=== PATIENT | female | born 1950 | race Caucasian/White ===

== ENCOUNTER 2017-01-14 06:27 | Inpatient (IN) | payer OTHER ==
[~2017-01-14] VITALS: Ht 157.5 cm; Wt 93.1 kg
[2017-01-14] VITALS (27 sets, daily range): BP systolic 87–246; BP diastolic 56–123; PULSE 74–110; RESP 14–38; TEMP 98.8–99.7; O2SAT 91–100
[2017-01-14] MEDS ORDERED: ROCURONIUM INJ 50 MG/5 ML VIAL IV ONE (06:45)
[2017-01-14] MEDS ORDERED: ETOMIDATE 20 MG/10 ML VIAL IV PUSH ONE (06:45)
[2017-01-14] MEDS ORDERED: AZITHROMYCIN INJ 500 MG in SODIUM CHLOR 0.9% 250 ML INJ 250 ML IV ONE (06:45)
[2017-01-14] MEDS ORDERED: CEFEPIME INJ 2,000 MG in SODIUM CHLORIDE 0.9% INJ 100 ML IV ONE (06:45)
--- NOTE | 2017-01-14 06:47 | PD ---
HPI Chief Complaint: Respiratory Distress Time Seen by Provider: 06:38 Travel History International Travel<30 days: No Contact w/Intl Traveler<30days: No Traveled to known affect area: No History of Present Illness HPI Approximately [age]-old female brought in by ambulance from home for evaluation of shortness of breath. Patient had been complaining of shortness of breath since yesterday which has been gradually worsening. She has had a cough productive of greenish sputum. 911 was was called by the patient's significant other. EMS noted patient's O2 saturation to be 40-50% on room air and she was in obvious distress with a respiratory rate in the 40s. She was started on CPAP. Upon arrival to the emergency department the patient is very to Neck. She is still on CPAP and is saturating 90%. She denies chest pain. She is unable to provide much more the history given her respiratory status. I explained that I would like to intubate her, and she was amenable to this. She denies history of heart or lung problems. Left forearm 20-gauge IV was established by me under ultrasound guidance. Once IV was established, RSI was performed by me for impending respiratory failure. [facility] Past Medical History Medical History: Unable to Obtain Tetanus Vaccination: Unknown ?: Unknown Past Surgical History Surgical History: Unable to Obtain Social History Alcohol Use: No Tobacco Use: No Substance Use: No Allergies-Medications (Allergen,Severity, Reaction): Coded Allergies: UNOBTAINABLE (Unverified , 01/14/17) Reported Meds & Prescriptions Reported Meds & Active Scripts Active Active Prescriptions or Reported Medications Unobtainable Review of Systems ROS Limitations: Clinical Condition Physical Exam Narrative GENERAL: Well-developed, well-nourished, severe respiratory distress, speaking 1 word at a time, tachypneic SKIN: Warm and dry. No rash. No pallor. HEAD: Atraumatic. Normocephalic. EYES: Pupils equal and round. No scleral icterus. No injection or drainage. ENT: Mucous membranes pink and moist. NECK: Trachea midline. No JVD. CARDIOVASCULAR: Tachycardic, regular. RESPIRATORY: Severe respiratory distress. Accessory muscle use. Speaking 1 word at a time. Coarse breath sounds bilaterally. GASTROINTESTINAL: Abdomen soft, non-tender, nondistended. MUSCULOSKELETAL: No obvious deformities. No clubbing. No cyanosis. No edema. NEUROLOGICAL: Drowsy, severe respiratory distress. Moves all extremities. Data Data Last Documented VS Vital Signs Date Time Temp Pulse Resp B/P Pulse Ox O2 Delivery O2 Flow Rate FiO2 01/14/17 07:09 103 14 188/95 98 Ventilator 100 01/14/17 06:29 99.1 Orders Electrocardiogram (01/14/17 06:39) Complete Blood Count With Diff (01/14/17 06:39) Comprehensive Metabolic Panel (01/14/17 06:39) Prothrombin Time / Inr (Pt) (01/14/17 06:39) Act Partial Throm Time (Ptt) (01/14/17 06:39) Lactic Acid Sepsis Protocol (01/14/17 06:39) Ckmb (Isoenzyme) Profile (01/14/17 06:39) Troponin I (01/14/17 06:39) Urinalysis - C+S If Indicated (01/14/17 06:39) Influenzae A/B Antigen (01/14/17 06:39) Blood Culture (01/14/17 06:39) Sputum Culture And Gram Stain (01/14/17 06:39) Chest, Single Ap (01/14/17 06:39) Ecg Monitoring (01/14/17 06:39) Iv Access Insert/Monitor (01/14/17 06:39) Oximetry (01/14/17 06:39) Etomidate Inj (Amidate Inj) (01/14/17 06:45) Rocuronium Inj (Zemuron Inj) (01/14/17 06:45) Urinary Catheter Insert/Apply (01/14/17 06:39) Restraints Non-Violent PEDRO PABLO.Q3H (01/14/17 06:39) Cefepime Inj (Maxipime Inj) (01/14/17 06:45) Azithromycin Inj (Zithromax Inj) (01/14/17 06:45) B-Type Natriuretic Peptide (01/14/17 06:39) Arterial Blood Gas (Abg) (01/14/17 ) Propofol 1000 Mg/100 Ml Inj (Diprivan 10 (01/14/17 07:00) Furosemide Inj (Lasix Inj) (01/14/17 07:00) Piperacil-Tazo 4.5 Gm Premix (Zosyn 4.5 (01/14/17 07:15) Vancomycin Inj (Vancomycin Inj) (01/14/17 07:15) Nitroglycerin 2% Oint (Nitroglycerin 2% (01/14/17 07:15) Labs Laboratory Tests Test 01/14/17 06:45 White Blood Count 31.7 TH/MM3 Red Blood Count 5.53 MIL/MM3 Hemoglobin 16.6 GM/DL Hematocrit 50.5 % Mean Corpuscular Volume 91.4 FL Mean Corpuscular Hemoglobin 30.1 PG Mean Corpuscular Hemoglobin 32.9 % Concent Red Cell Distribution Width 13.7 % Platelet Count 209 TH/MM3 Mean Platelet Volume 10.4 FL Neutrophils (%) (Auto) 92.7 % Lymphocytes (%) (Auto) 2.6 % Monocytes (%) (Auto) 4.3 % Eosinophils (%) (Auto) 0.0 % Basophils (%) (Auto) 0.4 % Neutrophils # (Auto) 29.3 TH/MM3 Lymphocytes # (Auto) 0.8 TH/MM3 Monocytes # (Auto) 1.4 TH/MM3 Eosinophils # (Auto) 0.0 TH/MM3 Basophils # (Auto) 0.1 TH/MM3 CBC Comment AUTO DIFF Urine Color YELLOW Urine Turbidity CLEAR Urine pH 5.5 Urine Specific [place] 1.034 Urine Protein 30 mg/dL Urine Glucose (UA) 300 mg/dL Urine Ketones TRACE mg/dL Urine Occult Blood NEG Urine Nitrite NEG Urine Bilirubin NEG Urine Urobilinogen LESS THAN 2.0 MG/DL Urine Leukocyte Esterase NEG Urine RBC LESS THAN 1 /hpf Urine WBC 1 /hpf Urine Squamous Epithelial 1 /hpf Cells Urine Hyaline Casts 6 /lpf Urine Mucus FEW /lpf Microscopic Urinalysis Comment CATH-CULT NOT IND MDM Medical Decision Making Medical Screen Exam Complete: Yes Emergency Medical Condition: Yes Differential Diagnosis Sepsis, pneumonia, pulmonary edema, pneumothorax, PE Narrative Course See HPI The patient was intubated emergently shortly after arrival to the emergency department. Initial chest x-ray showed that the ET tube was in the right mainstem bronchus. This was pulled back and repeat chest x-ray shows the ET tube to be in good position. Chest x-ray also shows bilateral interstitial infiltrates, likely pulmonary edema. Patient was started on propofol for sedation. She was given 40 mg of IV Lasix. Cefepime and azithromycin ordered empirically for pulmonary infection. At 7:00 AM at the end of my shift the patient was signed out to oncoming provider Dr. Allen who will follow up with labs, and will have the patient admitted to the ICU. Procedures Procedure Narrative Ultrasound-guided peripheral IV: Using the linear ultrasound probe, a 20-gauge IV catheter was placed in the left forearm. Emergent intubation: The patient was put in optimal position for the procedure. Rapid sequence intubation was initiated by me using 20 milligrams of etomidate IV and 50 milligrams of rocuronium IV. The patient was intubated with a 8.0 [place] cuffed endotracheal tube. Tube placement was confirmed by visualization of the tube and balloon passing through the cords, capnometry and subsequent chest x-ray. Breath sounds were equal and well aerated bilaterally postintubation. No breath sounds over stomach. Patient tolerated procedure well. Scripts Unable to Obtain Active Prescriptions or Reported Meds Keaton Aguilar MD Jan 14, 2017 06:47
[2017-01-14] MEDS: PROPOFOL 1000 MG/100 ML INJ 100 ML IV SCH ×3 (06:58→20:11)
[2017-01-14] MEDS ORDERED: FUROSEMIDE 40 MG/4 ML VIAL IV PUSH ONE (07:00)
[2017-01-14 07:06] LABS: AUTOMATED NEUTROPHIL # 29.3 TH/MM3 (1.8-7.7); BASOPHIL # 0.1 TH/MM3 (0-0.2); BASOPHIL % 0.4 % (0.0-2.0); HEMATOCRIT 50.5 % (35.0-46.0); LYMPH % 2.6 % (9.0-44.0); LYMPHOCYTE # 0.8 TH/MM3 (1.0-4.8); MEAN CELL VOLUME 91.4 FL (80.0-100.0); MEAN CORPUSCULAR HEMOGLOBIN 30.1 PG (27.0-34.0); MEAN CORPUSCULAR HGB CONC 32.9 % (32.0-36.0); MONO % 4.3 % (0.0-8.0); NEUT % 92.7 % (16.0-70.0); PLATELET COUNT 209 TH/MM3 (150-450); RED BLOOD COUNT 5.53 MIL/MM3 (4.00-5.30); RED CELL DISTRIBUTION WIDTH 13.7 % (11.6-17.2); WHITE BLOOD COUNT 31.7 TH/MM3 (4.0-11.0)
--- NOTE | 2017-01-14 07:09 | RADRPT ---
EXAM DATE/TIME: 01/14/2017 06:48 [place] COMPARISON: No previous studies available for comparison. INDICATIONS : Post intubation. MEDICAL HISTORY : Unobtainable. SURGICAL HISTORY : Unobtainable. ENCOUNTER: Initial ACUITY: 1 day PAIN SCORE: Non-responsive. LOCATION: Bilateral chest FINDINGS: The patient is intubated with tip of the ET tube 4 cm from the arian. There is an NG tube in place w ith its tip directed into the stomach. The heart size is normal. The lungs are show diffuse consolida tion being worse at the upper lungs. A significant effusion is not seen. CONCLUSION: 1. ET tube in good position. 2. Diffuse consolidation likely representing edema or diffuse infection. Michael Diaz MD on January 14, 2017 at 7:06 Board Certified Radiologist. This report was verified electronically.
[2017-01-14 07:12] LABS: BLOOD, URINE NEG (NEG); GLUCOSE,URINE 300 mg/dL (NEG); HYALINE CAST, URINE 6 /lpf (RARE); KETONE, URINE TRACE mg/dL (NEG); MUCUS URINE FEW /lpf (OCC); NITRITE,URINE NEG (NEG); PH, URINE 5.5 (5.0-8.5); SQUAMOUS EPITHELIAL CELL URINE 1 /hpf (0-5); URINE COLOR YELLOW (YELLW/STRAW)
[2017-01-14 07:13] LABS: COMMENT (UR) CATH-CULT NOT IND; CULTURE IF INDICATED CATH CULTURE NOT IND; HEMO FLAGS AUTO DIFF
[2017-01-14] MEDS ORDERED: VANCOMYCIN INJ 1,000 MG in SODIUM CHLOR 0.9% 250 ML INJ 250 ML IV ONE (07:15)
[2017-01-14] MEDS ORDERED: PIPERACIL-TAZO 4.5 GM PREMIX 100 ML IV ONE (07:15)
[2017-01-14] MEDS ORDERED: NITROGLYCERIN 2% OINT 1 GM PACKET TOPICAL ONE (07:15)
[2017-01-14] MEDS ORDERED: SODIUM CHLOR 0.9% 1000 ML INJ 1,000 ML IV ONE ×2 (07:45)
--- NOTE | 2017-01-14 07:47 | PD ---
HPI Chief Complaint: Respiratory Distress Time Seen by Provider: 07:11 Travel History International Travel<30 days: No Contact w/Intl Traveler<30days: No Traveled to known affect area: No History of Present Illness HPI Patient of unknown identity was brought in by EMS for acute shortness of breath. Her boyfriend was somewhere around but the ER physician who she saw her initially was unable to speak with him since he was not near the patient. As per the previous ER physician patient was answering questions one word per breath. She looked in severe respiratory distress. He decided to intubate her. Patient was verbally agreeable to this as well. During intubation he noticed greenish mucus and the laryngeal area. Patient's initial blood pressure was more than 220. He gave her IV Lasix and put a PEEP of 8. Chest x- ray was suggestive of possible pulmonary edema. Patient is currently intubated and unable to speak for herself. Her blood pressure is 188 systolic. She looks well sedated with propofol drip hanging. She has a [place] and has made some urine output of 300 cc. I still don't see any family member or friends. She has some grossly abnormal blood test results. Her white count is 31,000 with hemoglobin of 16 which is probably from hemoconcentration. Her lactic acid is 4.9. I'm awaiting for her chemistry resolved. Chest x-ray was read by the radiologist as diffuse consolidation from either pulmonary edema or infectious process. 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 HEAD: Atraumatic. Normocephalic. EYES: Pupils equal and round. No scleral icterus. No injection or drainage. ENT: No nasal bleeding or discharge. Mucous membranes pink and moist. NECK: Trachea midline. No JVD. CARDIOVASCULAR: Regular rate and rhythm. No murmur appreciated. RESPIRATORY: Intubated on ventilator. Clear to auscultation. Breath sounds equal bilaterally. GASTROINTESTINAL: Abdomen soft, non-tender, nondistended. Hepatic and splenic margins not palpable. MUSCULOSKELETAL: No obvious deformities. No clubbing. No cyanosis. No edema. NEUROLOGICAL: intubated and sedated PSYCHIATRIC: Unable to assess Data Data Last Documented VS Vital Signs Date Time Temp Pulse Resp B/P Pulse Ox O2 Delivery O2 Flow Rate FiO2 01/14/17 07:30 108 18 159/94 94 01/14/17 07:09 Ventilator 100 01/14/17 06:29 99.1 Orders Electrocardiogram (01/14/17 06:39) Complete Blood Count With Diff (01/14/17 06:39) Comprehensive Metabolic Panel (01/14/17 06:39) Prothrombin Time / Inr (Pt) (01/14/17 06:39) Act Partial Throm Time (Ptt) (01/14/17 06:39) Lactic Acid Sepsis Protocol (01/14/17 06:39) Ckmb (Isoenzyme) Profile (01/14/17 06:39) Troponin I (01/14/17 06:39) Urinalysis - C+S If Indicated (01/14/17 06:39) Influenzae A/B Antigen (01/14/17 06:39) Blood Culture (01/14/17 06:39) Sputum Culture And Gram Stain (01/14/17 06:39) Chest, Single Ap (01/14/17 06:39) Ecg Monitoring (01/14/17 06:39) Iv Access Insert/Monitor (01/14/17 06:39) Oximetry (01/14/17 06:39) Etomidate Inj (Amidate Inj) (01/14/17 06:45) Rocuronium Inj (Zemuron Inj) (01/14/17 06:45) Urinary Catheter Insert/Apply (01/14/17 06:39) Restraints Non-Violent PEDRO PABLO.Q3H (01/14/17 06:39) Cefepime Inj (Maxipime Inj) (01/14/17 06:45) Azithromycin Inj (Zithromax Inj) (01/14/17 06:45) B-Type Natriuretic Peptide (01/14/17 06:39) Arterial Blood Gas (Abg) (01/14/17 ) Propofol 1000 Mg/100 Ml Inj (Diprivan 10 (01/14/17 07:00) Furosemide Inj (Lasix Inj) (01/14/17 07:00) Piperacil-Tazo 4.5 Gm Premix (Zosyn 4.5 (01/14/17 07:15) Vancomycin Inj (Vancomycin Inj) (01/14/17 07:15) Nitroglycerin 2% Oint (Nitroglycerin 2% (01/14/17 07:15) Vascular Access Team Consult PRN (01/14/17 07:33) Sodium Chlor 0.9% 1000 Ml Inj (Ns 1000 M (01/14/17 07:45) Sodium Chlor 0.9% 1000 Ml Inj (Ns 1000 M (01/14/17 07:45) Admit Order (Ed Use Only) (01/14/17 07:47) CKMB (01/14/17 08:45) CKMB% (01/14/17 08:45) Labs Laboratory Tests Test 01/14/17 01/14/17 06:45 07:35 White Blood Count 31.7 TH/MM3 Red Blood Count 5.53 MIL/MM3 Hemoglobin 16.6 GM/DL Hematocrit 50.5 % Mean Corpuscular Volume 91.4 FL Mean Corpuscular Hemoglobin 30.1 PG Mean Corpuscular Hemoglobin 32.9 % Concent Red Cell Distribution Width 13.7 % Platelet Count 209 TH/MM3 Mean Platelet Volume 10.4 FL Neutrophils (%) (Auto) 92.7 % Lymphocytes (%) (Auto) 2.6 % Monocytes (%) (Auto) 4.3 % Eosinophils (%) (Auto) 0.0 % Basophils (%) (Auto) 0.4 % Neutrophils # (Auto) 29.3 TH/MM3 Lymphocytes # (Auto) 0.8 TH/MM3 Monocytes # (Auto) 1.4 TH/MM3 Eosinophils # (Auto) 0.0 TH/MM3 Basophils # (Auto) 0.1 TH/MM3 CBC Comment AUTO DIFF Differential Total Cells 100 Counted Neutrophils % (Manual) 90 % Band Neutrophils % 6 % Lymphocytes % 2 % Monocytes % 2 % Neutrophils # (Manual) 30.4 TH/MM3 Differential Comment FINAL DIFF MANUAL Platelet Estimate NORMAL Platelet Morphology Comment NORMAL Red Cell Morphology Comment NORMAL Urine Color YELLOW Urine Turbidity CLEAR Urine pH 5.5 Urine Specific [place] 1.034 Urine Protein 30 mg/dL Urine Glucose (UA) 300 mg/dL Urine Ketones TRACE mg/dL Urine Occult Blood NEG Urine Nitrite NEG Urine Bilirubin NEG Urine Urobilinogen LESS THAN 2.0 MG/DL Urine Leukocyte Esterase NEG Urine RBC LESS THAN 1 /hpf Urine WBC 1 /hpf Urine Squamous Epithelial 1 /hpf Cells Urine Hyaline Casts 6 /lpf Urine Mucus FEW /lpf Microscopic Urinalysis Comment CATH-CULT NOT IND Lactic Acid Level 4.9 mmol/L B-Type Natriuretic Peptide 97 PG/ML Blood Gas Puncture Site RT RADIAL Blood Gas Patient Temperature 98.6 Blood Gas HCO3 27 mmol/L Blood Gas Base Excess -0.4 mmol/L Blood Gas Oxygen Saturation 88 % Arterial Blood pH 7.21 Arterial Blood Partial 70 mmHg Pressure CO2 Arterial Blood Partial 70 mmHG Pressure O2 Arterial Blood Oxygen Content 21.2 Vol % Arterial Blood 0.9 % Carboxyhemoglobin Arterial Blood Methemoglobin 1.0 % Blood Gas Hemoglobin 17.1 G/DL Oxygen Delivery Device VENTILATOR Blood Gas Ventilator Setting 500/14/PEEP8 Blood Gas Inspired Oxygen 100 % MDM Medical Decision Making Medical Screen Exam Complete: Yes Emergency Medical Condition: Yes Medical Record Reviewed: Yes Interpretation(s) Twelve-lead EKG was reviewed by me. Normal sinus rhythm, normal axis, LVH, PVC , tachycardia, nonspecific ST-T wave changes. Heart rate of 112 bpm. Differential Diagnosis Pneumonia, sepsis, flash pulmonary edema Narrative Course 7:44 AM I started the patient on Zosyn and vancomycin. Previous physician had already ordered Zithromax IV. I ordered 2 L of IV fluid bolus. She also has an inch of Nitropaste on her. Patient is in a critical condition. I spoke with the aerial planting and cultivation manager who has accepted her case. Her chemistry was a re- collect. Awaiting for the chemistry to be resulted. Critical Care Narrative Aggregate critical care time was 45 minutes. Time to perform other separately billable procedures was not included in the critical care time. My time did not include minutes spent treating any other patients simultaneously or on activities that did not directly contribute to the patient's treatment. The services I provided to this patient were to treat and/or prevent clinically significant deterioration that could result in: Ventilator management, sepsis, pneumonia, malignant hypertension I provided critical care services requiring my management, as noted below: Chart data review, documentation time, medication orders and management, vital sign assessments/reviewing monitor data, ordering and reviewing lab tests, ordering and interpreting/reviewing x-rays and diagnostic studies, care of the patient and discussion of the patient with the admitting physicians. Procedures EKG Prior to Arrival: Yes Physician Communication Physician Communication Dr. Freitas Diagnosis Primary Impression: Sepsis Qualified Code: A41.9 - Sepsis, due to unspecified organism Additional Impressions: Pneumonia Qualified Code: J18.9 - Pneumonia of both lungs due to infectious organism, unspecified part of lung Pulmonary edema Qualified Code: J81.0 - Acute pulmonary edema Malignant hypertension Respiratory failure Qualified Code: J96.01 - Acute respiratory failure with hypoxia and hypercapnia Elevated troponin I level Admitting Information Admitting Physician Requests: Charmaine Cardoso MD Jan 14, 2017 07:47
[2017-01-14 07:53] LABS: BANDS 6 % (0-6); NEUTROPHIL # MANUAL DIFF 30.4 TH/MM3 (1.8-7.7); POLYS (SEG NEUTROPHILS) 90 % (16-70); WBC DIFF SAMPLE 100
[2017-01-14 07:54] LABS: PLATELET ESTIMATE SMEAR NORMAL (NORMAL); PLATELET MORPHOLOGY NORMAL (NORMAL); SCAN/DIFF FINAL DIFF MANUAL
[2017-01-14 08:10] LABS: BLOOD GAS BASE EXCESS -0.4 mmol/L (-2-2); BLOOD GAS CARBOXYHEMOGLOBIN 0.9 % (0-4); BLOOD GAS HCO3 27 mmol/L (22-26); BLOOD GAS O2 HGB SATURATION 88 % (90-100); BLOOD GAS OXYGEN CONTENT 21.2 Vol % (12.0-20.0); BLOOD GAS PCO2 70 mmHg (38-42); BLOOD GAS PO2 70 mmHG (61-120); BLOOD GAS TOTAL HGB 17.1 G/DL (12.0-16.0); DRAW SITE RT RADIAL; FIO2 100 %; NUMBER OF ARTERIAL PUNCTURES 1; OXYGEN DEVICE VENTILATOR; STAT YES; TEMP CORR TO 98.6; ULNAR PULSE PRESENT; VENT SETTINGS 500/14/PEEP8
[2017-01-14 08:58] LABS: LACTIC ACID GHOST NOT REPORTABLE
[2017-01-14] MEDS ORDERED: Vancomycin Consult Pharmacy 1 EA XX SCH (09:15)
[2017-01-14] MEDS ORDERED: SODIUM CHLORIDE 0.9% FLUSH 5 ML FLUSH IV FLUSH PRN (09:15)
[2017-01-14] MEDS ORDERED: MISCELLANEOUS NURSING INFORMATION XX SCH (09:15)
[2017-01-14] MEDS ORDERED: METOCLOPRAMIDE HCL 10 MG/2 ML VIAL IV PRN (09:15)
[2017-01-14] MEDS ORDERED: VANCOMYCIN INJ 1,000 MG in SODIUM CHLOR 0.9% 250 ML INJ 250 ML IV SCH (09:15)
[2017-01-14] MEDS ORDERED: CHLORHEXIDINE GLUCONATE 2 % 1 PACK (2 CLOTHS) TOP PRN (09:15)
[2017-01-14] MEDS ORDERED: LORazepam 2 MG/ML VIAL IV PRN (09:15)
[2017-01-14] MEDS ORDERED: ONDANSETRON HCL 4 MG/2 ML VIAL IV PRN (09:15)
[2017-01-14 09:17] LABS: APTT (PATIENT) 21.7 SEC (24.3-30.1); PROTHROMBIN TIME - PATIENT 10.6 SEC (9.8-11.6)
[2017-01-14 09:31] LABS: ALKALINE PHOSPHATASE 68 U/L (45-117); ALT (GPT) 27 U/L (10-53); ANION GAP 9 MEQ/L (5-15); AST (GOT) 41 U/L (15-37); BICARBONATE 29.3 MEQ/L (21.0-32.0); BLOOD UREA NITROGEN 25 MG/DL (7-18); CHLORIDE 107 MEQ/L (98-107); CREATINE KINASE 242 U/L (26-192); GLOMERULAR FILTRATION RATE 37 ML/MIN (>89); SODIUM (NA) 145 MEQ/L (136-145); TOTAL BILIRUBIN ADULT 0.6 MG/DL (0.2-1.0)
[2017-01-14 09:32] LABS: POTASSIUM 5.9 MEQ/L (3.5-5.1)
[2017-01-14 09:44] LABS: CKMB 7.6 NG/ML (0.5-3.6)
[2017-01-14] MEDS: RESP: ALBUTEROL 2.5 MG/IPRATROPIUM 0.5 MG NEB (SCH) INH ×3 (09:45→21:25)
[2017-01-14] MEDS: VANCOMYCIN INJ 1,750 MG in SODIUM CHLORID 0.9% 500 ML INJ 500 ML IV SCH ×2 (11:11→18:32)
[2017-01-14] MEDS: methylPREDNISolone SOD SUCC 40 MG/1 ML VIAL IV SCH ×2 (11:38→22:05)
[2017-01-14] MEDS: HEPARIN SODIUM - SQ 10,000 UNITS/ML VIAL SQ SCH ×2 (11:39→18:35)
[2017-01-14] MEDS: PIPERACIL-TAZO 4.5 GM PREMIX 100 ML IV SCH ×3 (12:41→22:06)
[2017-01-14] MEDS: NUTRISOURCE FIBER POWDER 1 PACK G-TUBE SCH ×2 (13:00→18:00)
[2017-01-14] MEDS: ARTIFICIAL TEARS OPTH SOLN 15 ML BTL EACH EYE SCH ×2 (13:00→18:00)
--- NOTE | 2017-01-14 14:24 | EKG ---
Date Performed: 01/14/2017 Time Performed: 06:48:00 PTAGE: 89 years EKG: SINUS TACHYCARDIA WITH OCCASIONAL VENTRICULAR PREMATURE COMPLEXES LVH ST-T CHANGES WHICH MA Y BE DUE TO LVH NO PREVIOUS TRACING DOCTOR: Rocky Cruz Interpretating Date/Time 01/14/2017 14:22:53
[2017-01-14] MEDS: SODIUM CHLOR 0.9% 1000 ML INJ 1,000 ML IV SCH ×2 (15:49→22:05)
--- NOTE | 2017-01-14 16:47 | HHI.HP ---
HPI Service Critical Care Medicine Primary Care Physician Unknown Admission Diagnosis respiratory failure, sepsis, pneumonia, malignant hypertension Diagnosis: Travel History International Travel<30 Days: No Contact w/Intl Traveler <30 Da: No Traveled to Known Affected Are: No History of Present Illness Young female in her 60s was brought in by ambulance from home for evaluation of shortness of breath. Patient had been complaining of shortness of breath since yesterday which has been gradually worsening. She has had a cough productive of greenish sputum. 911 was was called by the patient's significant other. EMS noted patient's O2 saturation to be 40-50% on room air and she was in obvious distress with a respiratory rate in the 40s. She was started on CPAP. Upon arrival to the emergency department she was intubated by ER attending. Review of Systems ROS Unable to obtain patient is intubated Past Family Social History Allergies: Coded Allergies: UNOBTAINABLE (Unverified , 01/14/17) Past Medical History Unobtainable Past Surgical History Unobtainable Reported Medications Reported Meds & Active Scripts Active Active Prescriptions or Reported Medications Unobtainable Active Ordered Medications Current Medications Medications (Trade) Dose Ordered Sig/Kari Route PRN Reason Start Time Stop Time Status Last Admin Dose Admin Propofol 100 ml @ 0 mls/hr TITRATE IV 01/14/17 07:00 01/14/17 06:58 Sodium Chloride (NS 1000 ml Inj) 1,000 ml @ 150 mls/hr Q6H40M IV 01/14/17 09:09 IV Flush (NS Flush) 2 ml UNSCH PRN IV FLUSH FLUSH AFTER USING IV ACCESS 01/14/17 09:15 IV Flush (NS Flush) 2 ml BID IV FLUSH 01/14/17 21:00 Acetaminophen (Tylenol) 650 mg Q6H PRN PO PAIN 1-10 AND/OR FEVER >101F 01/14/17 09:15 Morphine Sulfate (Morphine Inj) 2 mg Q2H PRN IV PAIN SCALE 6 TO 10 01/14/17 09:15 Famotidine (Pepcid Inj) 20 mg Q12HR IV PUSH 01/14/17 21:00 Lorazepam (Ativan Inj) 2 mg Q4H PRN IV Agitation/Sedation 01/14/17 09:15 01/14/17 10:55 Artificial Tears (Tears Naturale Opth Soln) 1 drop TID EACH EYE 01/14/17 13:00 Ondansetron HCl (Zofran Inj) 4 mg Q6H PRN IV NAUSEA OR VOMITING 01/14/17 09:15 Metoclopramide HCl (Reglan Inj) 10 mg Q6H PRN IV NAUSEA OR VOMITING 01/14/17 09:15 Senna/Docusate Sodium (Celeste-Colace) 2 tab BID GT 01/14/17 21:00 Heparin Sodium (Porcine) (Heparin Inj) 5,000 units Q8H SQ 01/14/17 10:00 01/14/17 11:39 Miscellaneous Information 1 Q361D XX 01/14/17 09:15 Chlorhexidine Gluconate (Chlorhexidine 2% Cloth) 3 pack Taper DAILY@04 TOP 01/15/17 04:00 01/11/18 03:59 Chlorhexidine Gluconate 3 pack 3 pack UNSCH PRN TOP HYGIENIC CARE 01/14/17 09:15 Piperacillin Sod/ Tazobactam Sod 100 ml @ 200 mls/hr Q6H IV 01/14/17 11:00 01/14/17 12:41 Azithromycin 500 mg/Sodium Chloride 250 ml @ 250 mls/hr Q24H IV 01/15/17 09:00 Pharmacy Profile Note (Vancomycin Consult Pharmacy) 0 ml @ 0 mls/hr UNSCH XX 01/14/17 09:15 Methylprednisolone Sodium Succinate (SoluMEDROL INJ) 40 mg Q12H IV 01/14/17 10:00 01/14/17 11:38 Guar Gum 1 pack 1 pack TID G-TUBE 01/14/17 13:00 Vancomycin HCl/ Sodium Chloride (Vancomycin Inj/ NS 500 ml Inj) 517.5 ml @ 250 mls/hr Q24H IV 01/14/17 11:00 01/14/17 11:11 Miscellaneous Information SPECIFIC LAB TO BE SAM... ONCE ONCE XX 01/16/17 10:45 01/16/17 10:46 Family History Unobtainable Social History Unobtainable Physical Exam Vital Signs Vital Signs Date Time Temp Pulse Resp B/P Pulse Ox O2 Delivery O2 Flow Rate FiO2 01/14/17 15:17 98 70 01/14/17 11:57 100 70 01/14/17 11:30 82 154/81 100 Ventilator 01/14/17 11:00 78 16 161/78 100 Ventilator 01/14/17 10:30 80 16 164/71 100 Ventilator 01/14/17 10:00 82 16 115/86 100 Ventilator 01/14/17 09:30 80 16 120/69 100 Ventilator 01/14/17 09:00 80 21 110/70 100 Ventilator 01/14/17 08:30 86 24 87/56 94 Ventilator 01/14/17 08:15 92 100 01/14/17 08:11 92 100 01/14/17 08:00 96 29 114/74 91 Ventilator 01/14/17 07:30 108 18 159/94 94 01/14/17 07:09 103 14 188/95 98 Ventilator 100 01/14/17 07:05 110 14 246/121 96 Ventilator 100 01/14/17 06:59 100 01/14/17 06:45 92 Ventilator 100 01/14/17 06:35 95 100 01/14/17 06:31 92 38 98 BiPAP 100 01/14/17 06:29 99.1 97 38 183/123 98 Laboratory Laboratory Tests Test 01/14/17 01/14/17 01/14/17 01/14/17 06:45 07:35 08:45 10:57 White Blood Count 31.7 Red Blood Count 5.53 Hemoglobin 16.6 Hematocrit 50.5 Mean Corpuscular Volume 91.4 Mean Corpuscular Hemoglobin 30.1 Mean Corpuscular Hemoglobin 32.9 Concent Red Cell Distribution Width 13.7 Platelet Count 209 Mean Platelet Volume 10.4 Neutrophils (%) (Auto) 92.7 Lymphocytes (%) (Auto) 2.6 Monocytes (%) (Auto) 4.3 Eosinophils (%) (Auto) 0.0 Basophils (%) (Auto) 0.4 Neutrophils # (Auto) 29.3 Lymphocytes # (Auto) 0.8 Monocytes # (Auto) 1.4 Eosinophils # (Auto) 0.0 Basophils # (Auto) 0.1 CBC Comment AUTO DIFF Differential Total Cells 100 Counted Neutrophils % (Manual) 90 Band Neutrophils % 6 Lymphocytes % 2 Monocytes % 2 Neutrophils # (Manual) 30.4 Differential Comment FINAL DIFF MANUAL Platelet Estimate NORMAL Platelet Morphology Comment NORMAL Red Cell Morphology Comment NORMAL Urine Color YELLOW Urine Turbidity CLEAR Urine pH 5.5 Urine Specific Nelson 1.034 Urine Protein 30 Urine Glucose (UA) 300 Urine Ketones TRACE Urine Occult Blood NEG Urine Nitrite NEG Urine Bilirubin NEG Urine Urobilinogen LESS THAN 2.0 Urine Leukocyte Esterase NEG Urine RBC LESS THAN 1 Urine WBC 1 Urine Squamous Epithelial 1 Cells Urine Hyaline Casts 6 Urine Mucus FEW Microscopic Urinalysis Comment CATH-CULT NOT IND Lactic Acid Level 4.9 3.0 B-Type Natriuretic Peptide 97 Blood Gas Puncture Site RT RADIAL Blood Gas Patient Temperature 98.6 Blood Gas HCO3 27 Blood Gas Base Excess -0.4 Blood Gas Oxygen Saturation 88 Arterial Blood pH 7.21 Arterial Blood Partial 70 Pressure CO2 Arterial Blood Partial 70 Pressure O2 Arterial Blood Oxygen Content 21.2 Arterial Blood 0.9 Carboxyhemoglobin Arterial Blood Methemoglobin 1.0 Blood Gas Hemoglobin 17.1 Oxygen Delivery Device VENTILATOR Blood Gas Ventilator Setting 500/14/PEEP8 Blood Gas Inspired Oxygen 100 Prothrombin Time 10.6 Prothromb Time International 1.0 Ratio Activated Partial 21.7 Thromboplast Time Sodium Level 145 Potassium Level 5.9 Chloride Level 107 Carbon Dioxide Level 29.3 Anion Gap 9 Blood Urea Nitrogen 25 Creatinine 1.25 Estimat Glomerular Filtration 37 Rate Random Glucose 154 Calcium Level 9.0 Total Bilirubin 0.6 Aspartate Amino Transf 41 (AST/SGOT) Alanine Aminotransferase 27 (ALT/SGPT) Alkaline Phosphatase 68 Total Creatine Kinase 242 Creatine Kinase MB 7.6 Creatine Kinase MB % 3.1 Troponin I 0.21 Total Protein 6.6 Albumin 2.9 Date/Time Procedure Status Source Growth 01/14/17 06:50 Aerobic Blood Culture Received Blood Peripheral Pending 01/14/17 06:50 Anaerobic Blood Culture Received Blood Peripheral Pending 01/14/17 06:45 Urine Culture Received Urine Catheterized Urine Pending Result Diagram: 01/14/1745 01/14/17 0845 Imaging Last 24 hours Impressions Chest X-Ray 01/14/17 0639 Signed Impressions: Service Date/Time: Saturday, January 14, 2017 06:48 - CONCLUSION: 1. ET tube in good position. 2. Diffuse consolidation likely representing edema or diffuse infection. Michael Diaz MD Assessment and Plan Problem List: (1) Respiratory failure ICD Code: J96.90 Status: Acute (2) Pulmonary edema ICD Code: J81.1 Status: Acute (3) Pneumonia ICD Code: J18.9 Status: Acute (4) Elevated troponin I level ICD Code: R74.8 Status: Acute Assessment and Plan Respiratory failure - Pneumonia community acquired - Mechanical ventilation - Broad-spectrum antibiotic - DuoNeb treatment - ABG and CXR daily Community-acquired pneumonia - Broad-spectrum antibiotic - Coverage for atypical - Follow-up cultures - De-escalate per results Troponin leak - Probably due to hypoxemia - Follow-up trend - Cardiology consult if trending up or EKG changes DVT GI prophylaxis - Subcutaneous heparin and Pepcid Critical Care: The total critical care time was 35 minutes. Time to perform other separately billable procedures was not included in the critical care time. Problem Qualifiers (1) Respiratory failure: Qualified Code: J96.01 - Acute respiratory failure with hypoxia and hypercapnia (2) Pulmonary edema: Qualified Code: J81.0 - Acute pulmonary edema (3) Pneumonia: Qualified Code: J18.9 - Pneumonia of both lungs due to infectious organism, unspecified part of lung Yousif Freitas MD Jan 14, 2017 16:47
[2017-01-14] MEDS: FAMOTIDINE 20 MG/2 ML VIAL IV PUSH SCH (20:11)
[2017-01-14] MEDS: DOCUSATE SODIUM 50 MG/SENNA 8.6 MG TAB GT SCH (20:12)
[2017-01-14] MEDS: SODIUM CHLORIDE 0.9% FLUSH 5 ML FLUSH IV FLUSH SCH (20:12)
[2017-01-15] VITALS (17 sets, daily range): BP systolic 116–136; BP diastolic 62–85; PULSE 74–88; RESP 19–28; TEMP 98.3–100.1; O2SAT 93–99
[2017-01-15] MEDS: PROPOFOL 1000 MG/100 ML INJ 100 ML IV SCH ×5 (00:57→19:44)
[2017-01-15] MEDS: CHLORHEXIDINE GLUCONATE 2 % 1 PACK (2 CLOTHS) TOP SCH (04:00)
[2017-01-15] MEDS: RESP: ALBUTEROL 2.5 MG/IPRATROPIUM 0.5 MG NEB (SCH) INH ×3 (04:06→20:17)
[2017-01-15 04:08] LABS: AUTOMATED NEUTROPHIL # 17.2 TH/MM3 (1.8-7.7); BASOPHIL % 0.1 % (0.0-2.0); HEMATOCRIT 38.6 % (35.0-46.0); HEMO FLAGS DIFF FINAL; LYMPH % 4.3 % (9.0-44.0); LYMPHOCYTE # 0.8 TH/MM3 (1.0-4.8); MEAN CELL VOLUME 89.8 FL (80.0-100.0); MEAN CORPUSCULAR HEMOGLOBIN 30.1 PG (27.0-34.0); MEAN CORPUSCULAR HGB CONC 33.6 % (32.0-36.0); MONO % 2.3 % (0.0-8.0); NEUT % 93.3 % (16.0-70.0); PLATELET COUNT 144 TH/MM3 (150-450); RED CELL DISTRIBUTION WIDTH 13.1 % (11.6-17.2); WHITE BLOOD COUNT 18.4 TH/MM3 (4.0-11.0)
[2017-01-15] MEDS: HEPARIN SODIUM - SQ 10,000 UNITS/ML VIAL SQ SCH ×3 (04:18→18:36)
[2017-01-15] MEDS: PIPERACIL-TAZO 4.5 GM PREMIX 100 ML IV SCH ×4 (04:18→22:45)
[2017-01-15] MEDS: ACETAMINOPHEN 325 MG TAB PO PRN (04:19)
[2017-01-15 04:37] LABS: ALKALINE PHOSPHATASE 49 U/L (45-117); ALT (GPT) 20 U/L (10-53); ANION GAP 6 MEQ/L (5-15); AST (GOT) 20 U/L (15-37); BICARBONATE 26.9 MEQ/L (21.0-32.0); BLOOD UREA NITROGEN 21 MG/DL (7-18); CHLORIDE 113 MEQ/L (98-107); GLOMERULAR FILTRATION RATE 63 ML/MIN (>89); POTASSIUM 4.3 MEQ/L (3.5-5.1); SODIUM (NA) 146 MEQ/L (136-145); TOTAL BILIRUBIN ADULT 0.3 MG/DL (0.2-1.0)
[2017-01-15] MEDS: SODIUM CHLOR 0.9% 1000 ML INJ 1,000 ML IV SCH ×3 (05:09→18:29)
[2017-01-15 05:47] LABS: BLOOD GAS HCO3 24 mmol/L (22-26); BLOOD GAS METHEMOGLOBIN 1.3 % (0-2); BLOOD GAS O2 HGB SATURATION 92 % (90-100); BLOOD GAS OXYGEN CONTENT 16.6 Vol % (12.0-20.0); BLOOD GAS PCO2 43 mmHg (38-42); BLOOD GAS PO2 71 mmHg (61-120); BLOOD GAS TOTAL HGB 12.9 G/DL (12.0-16.0); CRITICAL VALUE NO; DRAW SITE RT RADIAL; FIO2 55 %; NUMBER OF ARTERIAL PUNCTURES 1; OXYGEN DEVICE VENTILATOR; STAT NO; TEMP CORR TO 98.6; ULNAR PULSE PRESENT; VENT SETTINGS AC/12/500/PEEP8
--- NOTE | 2017-01-15 06:53 | RADRPT ---
EXAM DATE/TIME: 01/15/2017 05:20 [facility] COMPARISON: CHEST SINGLE AP, January 14, 2017, 6:48. INDICATIONS : Shortness of breath, possible pulmonary disease. MEDICAL HISTORY : None. SURGICAL HISTORY : None. ENCOUNTER: Subsequent ACUITY: 2 days PAIN SCORE: Non-responsive. LOCATION: Bilateral chest FINDINGS: Endotracheal tube tip well above the arian. Gastric tube traverses the [id number]. Changing pat tern of infiltrates in the lungs with persistent but decreased alveolar infiltrates in upper lungs an d interval development of consolidation in the left lower lung with loss of delineation left hemidiap hragm. CONCLUSION: Changing pattern of infiltrates in the lungs, increased at the left lower lobe and decreased in the u pper lungs. Elvin Lantigua MD on January 15, 2017 at 6:51 Board Certified Radiologist. This report was verified electronically.
[2017-01-15] MEDS: AZITHROMYCIN INJ 500 MG in SODIUM CHLOR 0.9% 250 ML INJ 250 ML IV SCH (08:54)
[2017-01-15] MEDS: methylPREDNISolone SOD SUCC 40 MG/1 ML VIAL IV SCH ×2 (08:54→20:44)
[2017-01-15] MEDS: DOCUSATE SODIUM 50 MG/SENNA 8.6 MG TAB GT SCH ×2 (08:54→20:42)
[2017-01-15] MEDS: SODIUM CHLORIDE 0.9% FLUSH 5 ML FLUSH IV FLUSH SCH ×2 (08:55→20:42)
[2017-01-15] MEDS: FAMOTIDINE 20 MG/2 ML VIAL IV PUSH SCH ×2 (08:55→20:44)
[2017-01-15] MEDS: ARTIFICIAL TEARS OPTH SOLN 15 ML BTL EACH EYE SCH ×3 (08:55→18:37)
[2017-01-15] MEDS: NUTRISOURCE FIBER POWDER 1 PACK G-TUBE SCH ×3 (08:55→18:00)
[2017-01-15] MEDS ORDERED: POTASSIUM PHOSPHATE INJ 30 MMOL in SODIUM CHLOR 0.9% 250 ML INJ 250 ML IV PRN (12:15)
[2017-01-15] MEDS ORDERED: MAGNESIUM SULFATE INJ 4 GM in SODIUM CHLORIDE 0.9% INJ 92 ML IV PRN (12:15)
[2017-01-15] MEDS ORDERED: POTASSIUM PHOSPHATE MONOBASIC 500 MG TAB PO/TUBE PRN (12:15)
[2017-01-15] MEDS ORDERED: MAGNESIUM SULFATE INJ 2 GM in SODIUM CHLORIDE 0.9% INJ 96 ML IV PRN (12:15)
[2017-01-15] MEDS ORDERED: SODIUM PHOSPHATE INJ 30 MMOL in SODIUM CHLOR 0.9% 250 ML INJ 240 ML IV PRN (12:15)
[2017-01-15] MEDS ORDERED: MAGNESIUM OXIDE 400 MG TAB PO PRN (12:15)
[2017-01-15] MEDS ORDERED: POTASSIUM CHLOR 40 MEQ PREMIX 100 ML IV PRN ×2 (12:15)
[2017-01-15] MEDS ORDERED: POTASSIUM CHLOR 20 MEQ PREMIX 100 ML IV PRN (12:15)
[2017-01-15] MEDS: POTASSIUM PHOSPHATE MONOBASIC 500 MG TAB PO PRN ×2 (12:22→18:36)
[2017-01-15] MEDS: FUROSEMIDE 20 MG/2 ML VIAL IV PUSH SCH ×3 (12:22→22:45)
[2017-01-15] MEDS: VANCOMYCIN 1,000 MG/NS 250 ML IV SCH ×4 (12:23→22:44)
--- NOTE | 2017-01-15 12:58 | HHI.CCPN ---
Subjective Remarks/Hospital Course Young female in her 60s was brought in by ambulance from home for evaluation of shortness of breath. Patient had been complaining of shortness of breath since yesterday which has been gradually worsening. She has had a cough productive of greenish sputum. 911 was was called by the patient's significant other. EMS noted patient's O2 saturation to be 40-50% on room air and she was in obvious distress with a respiratory rate in the 40s. She was started on CPAP. Upon arrival to the emergency department she was intubated by ER attending. Objective Vital Signs Date Time Temp Pulse Resp B/P Pulse Ox O2 Delivery O2 Flow Rate FiO2 01/15/17 11:54 99 45 01/15/17 10:00 74 01/15/17 04:00 100.1 23 116/62 01/14/17 11:30 Ventilator Intake and Output 01/14/17 01/14/17 01/15/17 08:00 16:00 00:00 Intake Total 423 ml 550 ml Output Total 350 ml 500 ml 300 ml Balance -350 ml -77 ml 250 ml Result Diagram: 01/15/17 0336 01/15/17 0336 Other Results Microbiology Date/Time Procedure Status Source Growth 01/14/17 06:45 Legionella Antigen - Final Complete Urine Catheterized Urine PRESUMPTIVE NEGATIVE FOR LEGIONELLA P... 01/14/17 06:45 Streptococcus pneumoniae Antigen (M - Final Complete Urine Catheterized Urine PRESUMPTIVE NEGATIVE FOR STREPTOCOCCU... 01/15/17 11:45 Influenza Types A,B Antigen (IMELDA) - Final Complete Nasal Washing NEGATIVE FOR FLU A AND B ANTIGEN.... Laboratory Tests Test 01/15/17 05:23 Blood Gas Puncture Site RT RADIAL Blood Gas Patient Temperature 98.6 Blood Gas HCO3 24 mmol/L (22-26) Blood Gas Base Excess -1.0 mmol/L (-2-2) Blood Gas Oxygen Saturation 92 % (90-100) Arterial Blood pH 7.36 (7.380-7.420) Arterial Blood Partial 43 mmHg (38-42) Pressure CO2 Arterial Blood Partial 71 mmHg Pressure O2 (61-120) Arterial Blood Oxygen Content 16.6 Vol % (12.0-20.0) Arterial Blood 1.0 % (0-4) Carboxyhemoglobin Arterial Blood Methemoglobin 1.3 % (0-2) Blood Gas Hemoglobin 12.9 G/DL (12.0-16.0) Oxygen Delivery Device VENTILATOR Blood Gas Ventilator Setting AC/12/500/PEEP8 Blood Gas Inspired Oxygen 55 % Imaging Last 24 hours Impressions Chest X-Ray 01/14/17 0639 Signed Impressions: Service Date/Time: Saturday, January 14, 2017 06:48 - CONCLUSION: 1. ET tube in good position. 2. Diffuse consolidation likely representing edema or diffuse infection. Michael Diaz MD A/P Problem List: (1) Respiratory failure ICD Code: J96.90 Status: Acute (2) Pulmonary edema ICD Code: J81.1 Status: Acute (3) Pneumonia ICD Code: J18.9 Status: Acute (4) Elevated troponin I level ICD Code: R74.8 Status: Acute Assessment and Plan Respiratory failure - Pneumonia community acquired - Pulmonary edema due to fume inhalation??? - Mechanical ventilation - Broad-spectrum antibiotic - DuoNeb treatment - ABG and CXR daily - Gentle diuresis Community-acquired pneumonia - Broad-spectrum antibiotic - Coverage for atypical - Follow-up cultures - De-escalate per results Troponin leak - Probably due to hypoxemia - Follow-up trend - Cardiology consult if trending up or EKG changes Malnutrition - Start enteral tube feeds - 2Kal with a goal at 55 mL per hour DVT GI prophylaxis - Subcutaneous heparin and Pepcid Critical Care: The total critical care time was 35 minutes. Time to perform other separately billable procedures was not included in the critical care time. Problem Qualifiers (1) Respiratory failure: Qualified Code: J96.01 - Acute respiratory failure with hypoxia and hypercapnia (2) Pulmonary edema: Qualified Code: J81.0 - Acute pulmonary edema (3) Pneumonia: Qualified Code: J18.9 - Pneumonia of both lungs due to infectious organism, unspecified part of lung Yousif Freitas MD Jan 15, 2017 12:57
[2017-01-15] MEDS: BENEPROTEIN POWDER 1 PACK G-TUBE SCH ×2 (13:00→18:00)
[2017-01-15] MEDS: MIDAZOLAM 100 MG/ML INJ 100 ML IV SCH (19:45)
[2017-01-15] MEDS: fentaNYL DRIP 250 ML IV SCH (21:18)
[2017-01-16] VITALS (20 sets, daily range): BP systolic 65–128; BP diastolic 60–68; PULSE 55–90; RESP 16–24; TEMP 98.3–99; O2SAT 94–100
[2017-01-16] MEDS: HEPARIN SODIUM - SQ 10,000 UNITS/ML VIAL SQ SCH ×3 (00:42→17:04)
[2017-01-16] MEDS: PROPOFOL 1000 MG/100 ML INJ 100 ML IV SCH ×3 (00:42→12:51)
[2017-01-16] MEDS: SODIUM CHLOR 0.9% 1000 ML INJ 1,000 ML IV SCH ×3 (00:44→20:23)
[2017-01-16] MEDS: CHLORHEXIDINE GLUCONATE 2 % 1 PACK (2 CLOTHS) TOP SCH (04:00)
--- NOTE | 2017-01-16 04:21 | RADRPT ---
EXAM DATE/TIME: 01/16/2017 02:08 [facility] COMPARISON: CHEST SINGLE AP, January 15, 2017, 5:20. INDICATIONS : Shortness of breath, possible pulmonary disease. MEDICAL HISTORY : None. SURGICAL HISTORY : None. ENCOUNTER: Subsequent ACUITY: 3 days PAIN SCORE: Non-responsive. LOCATION: Bilateral chest FINDINGS: Single AP view of the chest. Endotracheal tube and nasogastric tube remain in place. Moderate cardiac silhouette enlargement again seen. Bilateral diffuse pulmonary parenchymal opacity with no significa nt interval change. No evidence of pneumothorax. CONCLUSION: Persistent cardiac silhouette enlargement and bilateral diffuse pulmonary opacity. No significant int erval change. Hosea Saucedo MD on January 16, 2017 at 4:18 Board Certified Radiologist. This report was verified electronically.
[2017-01-16] MEDS: PIPERACIL-TAZO 4.5 GM PREMIX 100 ML IV SCH ×4 (05:17→20:23)
[2017-01-16 05:57] LABS: AUTOMATED NEUTROPHIL # 14.2 TH/MM3 (1.8-7.7); BASOPHIL % 0.3 % (0.0-2.0); EOSINOPHIL % 0.1 % (0.0-4.0); LYMPHOCYTE # 0.6 TH/MM3 (1.0-4.8); MEAN CELL VOLUME 91.3 FL (80.0-100.0); MEAN CORPUSCULAR HEMOGLOBIN 30.3 PG (27.0-34.0); MEAN CORPUSCULAR HGB CONC 33.1 % (32.0-36.0); MONO % 6.8 % (0.0-8.0); NEUT % 88.8 % (16.0-70.0); PLATELET COUNT 77 TH/MM3 (150-450); RED BLOOD COUNT 4.16 MIL/MM3 (4.00-5.30); RED CELL DISTRIBUTION WIDTH 13.6 % (11.6-17.2)
[2017-01-16 06:13] LABS: BLOOD GAS BASE EXCESS -0.7 mmol/L (-2-2); BLOOD GAS CARBOXYHEMOGLOBIN 0.7 % (0-4); BLOOD GAS HCO3 27 mmol/L (22-26); BLOOD GAS METHEMOGLOBIN 1.5 % (0-2); BLOOD GAS O2 HGB SATURATION 88 % (90-100); BLOOD GAS PCO2 80 mmHg (38-42); BLOOD GAS PO2 73 mmHg (61-120); TEMP CORR TO 98.6
[2017-01-16 06:14] LABS: CRITICAL VALUE YES; FIO2 60 %; OXYGEN DEVICE VENTILATOR; VENT SETTINGS AC/12/500/PEEP10
[2017-01-16 06:15] LABS: DRAW SITE RT RADIAL; NUMBER OF ARTERIAL PUNCTURES 1; STAT NO; ULNAR PULSE PRESENT
[2017-01-16 06:31] LABS: ALKALINE PHOSPHATASE 46 U/L (45-117); ALT (GPT) 18 U/L (10-53); ANION GAP 9 MEQ/L (5-15); AST (GOT) 24 U/L (15-37); BICARBONATE 23.5 MEQ/L (21.0-32.0); CHLORIDE 114 MEQ/L (98-107); GLOMERULAR FILTRATION RATE 57 ML/MIN (>89); MAGNESIUM 2.2 MG/DL (1.5-2.5); SODIUM (NA) 146 MEQ/L (136-145); TOTAL BILIRUBIN ADULT 0.2 MG/DL (0.2-1.0)
[2017-01-16 06:35] LABS: BLOOD UREA NITROGEN 23 MG/DL (7-18)
[2017-01-16] MEDS: FUROSEMIDE 20 MG/2 ML VIAL IV PUSH SCH ×4 (06:48→23:46)
[2017-01-16] MEDS: MIDAZOLAM 100 MG/ML INJ 100 ML IV SCH (06:48)
[2017-01-16 06:49] LABS: HEMO FLAGS AUTO DIFF
[2017-01-16 06:50] LABS: SCAN/DIFF AUTO DIFF CONFIRMED
[2017-01-16] MEDS: ARTIFICIAL TEARS OPTH SOLN 15 ML BTL EACH EYE SCH ×3 (08:35→17:02)
[2017-01-16] MEDS: methylPREDNISolone SOD SUCC 40 MG/1 ML VIAL IV SCH ×2 (08:36→20:23)
[2017-01-16] MEDS: AZITHROMYCIN INJ 500 MG in SODIUM CHLOR 0.9% 250 ML INJ 250 ML IV SCH (08:36)
[2017-01-16] MEDS: FAMOTIDINE 20 MG/2 ML VIAL IV PUSH SCH ×2 (08:37→20:24)
[2017-01-16] MEDS: DOCUSATE SODIUM 50 MG/SENNA 8.6 MG TAB GT SCH ×2 (08:37→20:23)
[2017-01-16] MEDS: BENEPROTEIN POWDER 1 PACK G-TUBE SCH ×3 (08:41→17:03)
[2017-01-16] MEDS: NUTRISOURCE FIBER POWDER 1 PACK G-TUBE SCH ×3 (08:41→17:04)
[2017-01-16] MEDS: RESP: ALBUTEROL 2.5 MG/IPRATROPIUM 0.5 MG NEB (SCH) INH ×3 (08:50→22:00)
[2017-01-16] MEDS ORDERED: PNEUMOCOCCAL POLYVALENT INJ 25 MCG/0.5 ML SYR IM ONE (10:00)
[2017-01-16] MEDS ORDERED: LORazepam 2 MG/ML VIAL IV PUSH PRN (10:30)
[2017-01-16] MEDS ORDERED: PHARMACY ORDERED LAB XX ONE ×2 (10:45→23:45)
--- NOTE | 2017-01-16 11:04 | HHI.CCPN ---
Subjective Remarks/Hospital Course Young female in her 60s was brought in by ambulance from home for evaluation of shortness of breath. Patient had been complaining of shortness of breath since yesterday which has been gradually worsening. She has had a cough productive of greenish sputum. 911 was was called by the patient's significant other. EMS noted patient's O2 saturation to be 40-50% on room air and she was in obvious distress with a respiratory rate in the 40s. She was started on CPAP. Upon arrival to the emergency department she was intubated by ER attending. Subjective: 01/16: Contacted poison control this morning regarding inhalation injury. Discussed with , chief environmental commitment officer, presentation of the patient after discussion with daughter. The possibilities of concentrated form of inhaled substance places the patient has a significant impact for highly porous effect which could've subsequently caused the pulmonary edema. Toxic fumes involving chrome, chromium, cadmium possible colb[place] can cause lung destruction in this setting since the patient was not wearing respiratory equipment at the time. Of note greenish mucoid material noted upon intubation in the ED, there could be a secondary infectious risk process encouraged to current continue antibiotics. Poison control will continue following the patient's case. Recommendations were supportive care continue vigilance, to see if it reverses which may take days or weeks, and consideration of ECMO if respiratory decompensation continues to occur. Pulmonology consult has been initiated appreciate recommendations. Objective Vital Signs Date Time Temp Pulse Resp B/P Pulse Ox O2 Delivery O2 Flow Rate FiO2 01/16/17 08:51 96 60 01/16/17 06:00 81 01/16/17 04:00 98.5 24 118/65 01/14/17 11:30 Ventilator Intake and Output 01/15/17 01/15/17 01/16/17 08:00 16:00 00:00 Intake Total 1201 ml 1866 ml 1762 ml Output Total 450 ml 1000 ml 700 ml Balance 751 ml 866 ml 1062 ml Result Diagram: 01/16/17 0528 01/16/17 0528 Other Results Microbiology Date/Time Procedure Status Source Growth 01/14/17 06:45 Urine Culture - Final Complete Urine Catheterized Urine NO GROWTH IN 48 HOURS. 01/14/17 06:45 Legionella Antigen - Final Complete Urine Catheterized Urine PRESUMPTIVE NEGATIVE FOR LEGIONELLA P... 01/14/17 06:45 Streptococcus pneumoniae Antigen (M - Final Complete Urine Catheterized Urine PRESUMPTIVE NEGATIVE FOR STREPTOCOCCU... 01/15/17 11:45 Influenza Types A,B Antigen (IMELDA) - Final Complete Nasal Washing NEGATIVE FOR FLU A AND B ANTIGEN.... Laboratory Tests Test 01/16/17 05:53 Blood Gas Puncture Site RT RADIAL Blood Gas Patient Temperature 98.6 Blood Gas HCO3 27 mmol/L (22-26) Blood Gas Base Excess -0.7 mmol/L (-2-2) Blood Gas Oxygen Saturation 88 % (90-100) Arterial Blood pH 7.16 (7.380-7.420) Arterial Blood Partial 80 mmHg (38-42) Pressure CO2 Arterial Blood Partial 73 mmHg Pressure O2 (61-120) Arterial Blood Oxygen Content 15.0 Vol % (12.0-20.0) Arterial Blood 0.7 % (0-4) Carboxyhemoglobin Arterial Blood Methemoglobin 1.5 % (0-2) Blood Gas Hemoglobin 12.0 G/DL (12.0-16.0) Oxygen Delivery Device VENTILATOR Blood Gas Ventilator Setting AC/12/500/PEEP10 Blood Gas Inspired Oxygen 60 % Imaging Last Impressions Chest X-Ray 01/15/17 0600 Signed Impressions: Service Date/Time: Sunday, January 15, 2017 05:20 - CONCLUSION: Changing pattern of infiltrates in the lungs, increased at the left lower lobe and decreased in the upper lungs. Elvin Lantigua MD Last 24 hours Impressions Chest X-Ray 01/14/17 0639 Signed Impressions: Service Date/Time: Saturday, January 14, 2017 06:48 - CONCLUSION: 1. ET tube in good position. 2. Diffuse consolidation likely representing edema or diffuse infection. Michael Diaz MD Objective Remarks GENERAL: Critically ill appearing sedated intubated patient dependent on mechanical ventilation SKIN: Warm and dry. HEAD: Atraumatic. Normocephalic. EYES: Pupils equal and round. No scleral icterus. No injection or drainage. ENT: No nasal bleeding or discharge. Mucous membranes pink and moist. Oral tracheal intubation NECK: Trachea midline. No JVD. CARDIOVASCULAR: Normal rate, regular rhythm. RESPIRATORY: Mechanical ventilation, coarse breath sounds throughout auscultation. Breath sounds equal bilaterally. GASTROINTESTINAL: Abdomen soft, non-tender, nondistended. No guarding. MUSCULOSKELETAL: Extremities without clubbing, cyanosis, or edema. No obvious deformities. NEUROLOGICAL: Awake and alert. RASS 0. No gross focal/sensory deficits. Follows commands in all 4 extremities. Urinary Catheter: Yes Valdivia insert reason: Measure Accurate Output A/P Problem List: (1) Respiratory failure ICD Code: J96.90 Status: Acute (2) Pulmonary edema ICD Code: J81.1 Status: Acute (3) Pneumonia ICD Code: J18.9 Status: Acute (4) Elevated troponin I level ICD Code: R74.8 Status: Acute Assessment and Plan Respiratory failure - Pneumonia community acquired - Pulmonary edema due to fume inhalation-metals, vs. inhalation of noxious vapors from acids reportedly nitrogen dioxide, nitric acid - Mechanical ventilation - Broad-spectrum antibiotic - DuoNeb treatment - ABG and CXR daily-7.16/80/73/27/-0.7, bilateral diffuse pulmonary opacity no significant interval change - Gentle diuresis -Pulmonology consult, appreciate recommendations -Poison control contacted 01/16-recommendations supportive care, if continued pulmonary deterioration consider ECMO Community-acquired pneumonia - Broad-spectrum antibiotic - Coverage for atypical - Follow-up cultures-NGTD - De-escalate per results Troponin leak - Probably due to hypoxemia - Follow-up trend - Cardiology consult if trending up or EKG changes -Repeat EKG 01/16 Malnutrition - Start enteral tube feeds - 2Kal with a goal at 55 mL per hour DVT GI prophylaxis - Subcutaneous heparin and Pepcid Dispo: Discussed with poison control, who will be following and the patient's daughter as well as INTERVENTIONAL NEURORADIOLOGIST at bedside. Will closely monitor for toxicity levels of major organs to include cardiac renal and hepatic levels. Continue to provide supportive care. Await recommendations from interstate bus driver. Critical Care: my billing statement This patient remains critically ill with one or more organ systems which are or may become a threat to life. I have spent in excess of 49 minutes discontinuously in the care and management of this patient. This time is exclusive of procedures, and includes, but is not limited to, evaluation of the patient, review of the medical record, discussions with family, consultants, nursing staff, or respiratory therapy, and documentation in the medical record. Physician Esha Vega Problem Qualifiers (1) Respiratory failure: Qualified Code: J96.01 - Acute respiratory failure with hypoxia and hypercapnia (2) Pulmonary edema: Qualified Code: J81.0 - Acute pulmonary edema (3) Pneumonia: Qualified Code: J18.9 - Pneumonia of both lungs due to infectious organism, unspecified part of lung Esha Vega MD Jan 16, 2017 11:04
[2017-01-16 11:14] LABS: BLOOD GAS BASE EXCESS 0.4 mmol/L (-2-2); BLOOD GAS HCO3 27 mmol/L (22-26); BLOOD GAS METHEMOGLOBIN 1.6 % (0-2); BLOOD GAS O2 HGB SATURATION 93 % (90-100); BLOOD GAS OXYGEN CONTENT 14.3 Vol % (12.0-20.0); BLOOD GAS PCO2 61 mmHg (38-42); BLOOD GAS PO2 82 mmHg (61-120); BLOOD GAS TOTAL HGB 10.9 G/DL (12.0-16.0); TEMP CORR TO 98.6
[2017-01-16 11:15] LABS: CRITICAL VALUE YES; DRAW SITE RT RADIAL; FIO2 60 %; NUMBER OF ARTERIAL PUNCTURES 1; OXYGEN DEVICE VENTILATOR; STAT YES; ULNAR PULSE PRESENT
[2017-01-16] MEDS: SODIUM CHLORIDE 0.9% FLUSH 5 ML FLUSH IV FLUSH SCH ×2 (11:56→20:24)
[2017-01-16] MEDS: VANCOMYCIN 1,000 MG/NS 250 ML IV SCH ×4 (11:59→23:47)
--- NOTE | 2017-01-16 12:11 | RADRPT ---
EXAM DATE/TIME: 01/16/2017 10:56 [facility] COMPARISON: CHEST SINGLE AP, January 16, 2017, 2:08. INDICATIONS : Respiratory distress MEDICAL HISTORY : None. SURGICAL HISTORY : None. ENCOUNTER: Initial ACUITY: 2 days PAIN SCORE: Non-responsive. LOCATION: Bilateral chest FINDINGS: The ET tube is well placed with its tip 5 cm from the arian. An NG tube is in place with its tip in the upper stomach. The heart size is enlarged. The lungs demonstrate diffuse mixed interstitial an d alveolar consolidation. Significant effusions are not seen. CONCLUSION: Diffuse consolidation likely representing diffuse processes such as edema or diffuse infection. This is unchanged from the prior examination. Michael Diaz MD on January 16, 2017 at 12:00 Board Certified Radiologist. This report was verified electronically.
[2017-01-16] MEDS: fentaNYL DRIP 250 ML IV SCH (12:51)
[2017-01-16 13:13] LABS: ALT (GPT) 20 U/L (10-53); ANION GAP 5 MEQ/L (5-15); AST (GOT) 23 U/L (15-37); BLOOD UREA NITROGEN 24 MG/DL (7-18); CHLORIDE 113 MEQ/L (98-107); GLOMERULAR FILTRATION RATE 66 ML/MIN (>89); POTASSIUM 4.5 MEQ/L (3.5-5.1); SODIUM (NA) 147 MEQ/L (136-145)
[2017-01-16 13:15] LABS: ALKALINE PHOSPHATASE 39 U/L (45-117); TOTAL BILIRUBIN ADULT 0.2 MG/DL (0.2-1.0)
[2017-01-16 13:28] LABS: BLOOD GAS BASE EXCESS 1.2 mmol/L (-2-2); BLOOD GAS CARBOXYHEMOGLOBIN 1.1 % (0-4); BLOOD GAS HCO3 26 mmol/L (22-26); BLOOD GAS METHEMOGLOBIN 1.4 % (0-2); BLOOD GAS O2 HGB SATURATION 96 % (90-100); BLOOD GAS OXYGEN CONTENT 15.1 Vol % (12.0-20.0); BLOOD GAS PCO2 49 mmHg (38-42); BLOOD GAS PO2 133 mmHg (61-120); CRITICAL VALUE NO; DRAW SITE RT RADIAL; FIO2 60 %; NUMBER OF ARTERIAL PUNCTURES 1; OXYGEN DEVICE VENTILATOR; STAT NO; TEMP CORR TO 98.6; ULNAR PULSE PRESENT; VENT SETTINGS 500/18/5PEEP
[2017-01-16 13:45] LABS: APTT (PATIENT) 21.2 SEC (24.3-30.1); INTERNATIONAL NORMALIZED RATIO 0.9 RATIO; PROTHROMBIN TIME - PATIENT 10.1 SEC (9.8-11.6)
[2017-01-17] VITALS (19 sets, daily range): BP systolic 138–181; BP diastolic 68–86; PULSE 63–90; RESP 18–26; TEMP 98.7–100.7; O2SAT 91–99
[2017-01-17] MEDS: HEPARIN SODIUM - SQ 10,000 UNITS/ML VIAL SQ SCH ×3 (02:00→18:10)
[2017-01-17] MEDS: PROPOFOL 1000 MG/100 ML INJ 100 ML IV SCH (02:03)
[2017-01-17] MEDS: hydrALAZINE HCL 20 MG/ML VIAL IVS PRN ×4 (03:47→20:55)
[2017-01-17] MEDS: FUROSEMIDE 20 MG/2 ML VIAL IV PUSH SCH ×3 (03:47→16:39)
[2017-01-17] MEDS: PIPERACIL-TAZO 4.5 GM PREMIX 100 ML IV SCH ×4 (03:47→20:56)
[2017-01-17] MEDS: SODIUM CHLOR 0.9% 1000 ML INJ 1,000 ML IV SCH ×3 (03:48→16:38)
[2017-01-17] MEDS: CHLORHEXIDINE GLUCONATE 2 % 1 PACK (2 CLOTHS) TOP SCH (04:00)
[2017-01-17] MEDS: RESP: ALBUTEROL 2.5 MG/IPRATROPIUM 0.5 MG NEB (SCH) INH ×4 (04:22→22:33)
[2017-01-17 05:33] LABS: BLOOD GAS CARBOXYHEMOGLOBIN 1.2 % (0-4); BLOOD GAS HCO3 29 mmol/L (22-26); BLOOD GAS METHEMOGLOBIN 1.3 % (0-2); BLOOD GAS O2 HGB SATURATION 92 % (90-100); BLOOD GAS OXYGEN CONTENT 15.2 Vol % (12.0-20.0); BLOOD GAS PCO2 44 mmHg (38-42); BLOOD GAS PO2 69 mmHg (61-120); BLOOD GAS TOTAL HGB 11.7 G/DL (12.0-16.0); CRITICAL VALUE NO; DRAW SITE RT RADIAL; FIO2 40 %; NUMBER OF ARTERIAL PUNCTURES 2; OXYGEN DEVICE VENTILATOR; STAT NO; TEMP CORR TO 98.6; ULNAR PULSE PRESENT; VENT SETTINGS AC18/500/10PEEP
--- NOTE | 2017-01-17 07:24 | MB ---
cc: ROYER JIMENEZ DATE OF CONSULTATION 01/16/[address] Esha Vega REASON FOR CONSULTATION Pulmonary management For possible noxious agent injury. HISTORY OF PRESENT ILLNESS Ms. 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 As per her daughter, she was working on a metal part in a shop where there are a lot of chemicals. She put some acid, the part was hot and started fuming with orange fumes. She inhaled a lot of it when she came out, she could not breathe. A few minutes later, she went out to save the parts. She tried to pull one after another part and finally her son came and dragged her out because he felt that those fumes were to toxic. Even her son was starting to feel sick. The patient went to a separate room, stayed over there for awhile. Her son asked her to go to the emergency room, the patient declined. She says she will try to sleep it off. That happened around noon on Monday. She went to her room, stayed there and the next day morning, her boyfriend found that she was feeling very sick, had nausea and vomiting and not able to breathe and he called 9-1-1 and the patient was brought to the emergency room. On her way, her saturation was in the 40s and 50s, the patient was intubated in the emergency room. Poison Control has been contacted. Currently, she is on ventilator FIO2 weaned to 45%. Her daughter is at the bedside. PAST MEDICAL HISTORY Significant for hypertension. She does not see any physicians. MEDICATIONS She is currently takin. Lorazepam 2 mg 2. Fentanyl for sedation 3. Diprivan 4. Lasix 20 mg q6-hour 5. Potassium supplement 6. Vancomycin 7. Zithromax 8. Zosyn antibiotic 9. IV Solu-Medrol 10. Albuterol Atrovent nebulizer treatment ALLERGIES NO KNOWN DRUG ALLERGIES. SOCIAL HISTORY She lives with her boyfriend. She has no history of smoking, but takes five to six drinks a day. No drugs. FAMILY HISTORY Noncontributory REVIEW OF SYSTEMS As per her daughter normally she is up around and active. Does not see any physician. No seizure, stroke or epilepsy. PHYSICAL EXAM This is a well-built, well-nourished female on a ventilator, sedated. She is currently on assist control 18, 45%, her blood pressure 116/62, heart rate 67, respirations 18, temperature 98.7. HEAD, EYES, EARS, NOSE, AND THROAT: Pupils equal and reactive to light. She is orally intubated. NECK: JVP not raised. CHEST: Few rales. CARDIOVASCULAR: Normal. ABDOMEN: Benign. EXTREMITIES: No edema. LABORATORY EVALUATION WBC 16 thousand, hemoglobin 12.6, hematocrit 38, MCV 91, platelet count 77. Her sodium 147, potassium 4.4, chloride 113, CO2 24. BUN 24, creatinine 0.87. Her sputum cultures were negative. Legionella antigen negative. IMPRESSION 1. Respiratory failure 2. Acute inhalant injury resulting edema. 3. Possible pneumonia. PLAN I did discuss with the patient's daughter, she will be maintained on ventilator support and continue broad spectrum antibiotic IV Solu-Medrol and aerosol treatment. Wean from ventilator as she tolerates. Poison Control has been contacted. Because of the nature of the metal fumes, it can take a while for the pulmonary edema to resolve. Further treatment dependent on the course in the hospital. Thank you Dr. Esha Vega for this consultation. MD IRIS Ward/GENTRY /7:13 PM /6:02 AM
--- NOTE | 2017-01-17 07:38 | HHI.CCPN ---
Subjective Remarks/Hospital Course Young female in her 60s was brought in by ambulance from home for evaluation of shortness of breath. Patient had been complaining of shortness of breath since yesterday which has been gradually worsening. She has had a cough productive of greenish sputum. 911 was was called by the patient's significant other. EMS noted patient's O2 saturation to be 40-50% on room air and she was in obvious distress with a respiratory rate in the 40s. She was started on CPAP. Upon arrival to the emergency department she was intubated by ER attending. Subjective: 01/16: Contacted poison control this morning regarding inhalation injury. Discussed with , hand trucker, presentation of the patient after discussion with daughter. The possibilities of concentrated form of inhaled substance places the patient has a significant impact for highly porous effect which could've subsequently caused the pulmonary edema. Toxic fumes involving chrome, chromium, cadmium possible colbalt can cause lung destruction in this setting since the patient was not wearing respiratory equipment at the time. Of note greenish mucoid material noted upon intubation in the ED, there could be a secondary infectious risk process encouraged to current continue antibiotics. Poison control will continue following the patient's case. Recommendations were supportive care continue vigilance, to see if it reverses which may take days or weeks, and consideration of ECMO if respiratory decompensation continues to occur. Pulmonology consult has been initiated appreciate recommendations. 01/17: Tmax 99.6. The patient was weaned completely off of Versed infusion last night. The patient more alert this a.m., still not following commands. WBC count is trending down the patient continues on triple antibiotic therapy. Plan for CPAP trials today. Obtained MSDS form regarding patient was exposed to nitric oxide fumes and dissolved "pot metal" containing zinc, copper, tin, magnesium, aluminum, Iron, and cadmium. Objective Vital Signs Date Time Temp Pulse Resp B/P Pulse Ox O2 Delivery O2 Flow Rate FiO2 01/17/17 06:00 68 01/17/17 04:20 93 40 01/17/17 04:00 99.6 18 138/68 01/14/17 11:30 Ventilator Intake and Output 01/16/17 01/16/17 01/17/17 08:00 16:00 00:00 Intake Total 1749 ml 1741 ml 1688 ml Output Total 500 ml 1425 ml 950 ml Balance 1249 ml 316 ml 738 ml Result Diagram: 01/16/17 0528 01/16/17 1155 Other Results Microbiology Date/Time Procedure Status Source Growth 01/15/17 11:45 Influenza Types A,B Antigen (IMELDA) - Final Complete Nasal Washing NEGATIVE FOR FLU A AND B ANTIGEN.... Laboratory Tests Test 01/16/17 01/16/17 01/17/17 11:02 13:17 05:20 Blood Gas Puncture Site RT RADIAL RT RADIAL RT RADIAL Blood Gas Patient Temperature 98.6 98.6 98.6 Blood Gas HCO3 27 mmol/L 26 mmol/L 29 mmol/L (22-26) (22-26) (22-26) Blood Gas Base Excess 0.4 mmol/L 1.2 mmol/L 5.0 mmol/L (-2-2) (-2-2) (-2-2) Blood Gas Oxygen Saturation 93 % (90-100) 96 % (90-100) 92 % (90-100) Arterial Blood pH 7.26 7.35 7.44 (7.380-7.420) (7.380-7.420) (7.380-7.420) Arterial Blood Partial 61 mmHg (38-42) 49 mmHg (38-42) 44 mmHg (38-42) Pressure CO2 Arterial Blood Partial 82 mmHg 133 mmHg 69 mmHg Pressure O2 (61-120) (61-120) (61-120) Arterial Blood Oxygen Content 14.3 Vol % 15.1 Vol % 15.2 Vol % (12.0-20.0) (12.0-20.0) (12.0-20.0) Arterial Blood 1.0 % (0-4) 1.1 % (0-4) 1.2 % (0-4) Carboxyhemoglobin Arterial Blood Methemoglobin 1.6 % (0-2) 1.4 % (0-2) 1.3 % (0-2) Blood Gas Hemoglobin 10.9 G/DL 11.0 G/DL 11.7 G/DL (12.0-16.0) (12.0-16.0) (12.0-16.0) Oxygen Delivery Device VENTILATOR VENTILATOR VENTILATOR Blood Gas Ventilator Setting 500/15/10PEEP 500/18/5PEEP AC18/500/10PEEP Blood Gas Inspired Oxygen 60 % 60 % 40 % Imaging Last Impressions Chest X-Ray 01/15/17 0600 Signed Impressions: Service Date/Time: Sunday, January 15, 2017 05:20 - CONCLUSION: Changing pattern of infiltrates in the lungs, increased at the left lower lobe and decreased in the upper lungs. Elvin Lantigua MD Last 24 hours Impressions Chest X-Ray 01/14/17 0639 Signed Impressions: Service Date/Time: Saturday, January 14, 2017 06:48 - CONCLUSION: 1. ET tube in good position. 2. Diffuse consolidation likely representing edema or diffuse infection. Michael Diaz MD Objective Remarks GENERAL: Critically ill appearing female, awake and responsive but not following commands SKIN: Warm and dry. HEAD: Atraumatic. Normocephalic. EYES: Pupils equal and round. No scleral icterus. No injection or drainage. ENT: No nasal bleeding or discharge. Mucous membranes pink and moist. Oral tracheal intubation NECK: Trachea midline. No JVD. CARDIOVASCULAR: Normal rate, regular rhythm. RESPIRATORY: Mechanical ventilation, coarse breath sounds throughout auscultation. Breath sounds equal bilaterally. GASTROINTESTINAL: Abdomen soft, non-tender, nondistended. No guarding. MUSCULOSKELETAL: Extremities without clubbing, cyanosis, or edema. No obvious deformities. NEUROLOGICAL: Awake and alert. RASS -2. Movement of extremities 4 not following commands Urinary Catheter: Yes Vascular Central Line Catheter: No A/P Problem List: (1) Respiratory failure ICD Code: J96.90 Status: Acute (2) Pulmonary edema ICD Code: J81.1 Status: Acute (3) Pneumonia ICD Code: J18.9 Status: Acute (4) Elevated troponin I level ICD Code: R74.8 Status: Acute Assessment and Plan Respiratory failure Acute inhalation toxicity-nitric acid Pulmonary edema-secondary to inhalational injury - Pneumonia community acquired - Pulmonary edema due to fume inhalation-metals, vs. inhalation of noxious vapors from acids reportedly nitrogen dioxide, nitric acid - Mechanical ventilation - Broad-spectrum antibiotic-vancomycin, azithromycin, and Zosyn (day 3) -Continue Lasix 20 mg every 6 hours -Follow-up chest x-ray this a.m. - DuoNeb treatment - ABG and CXR daily-7.16/80/73/27/-0.7, bilateral diffuse pulmonary opacity no significant interval change - Gentle diuresis -Pulmonology consult, appreciate recommendations -Poison control contacted 01/16-recommendations supportive care, if continued pulmonary deterioration consider ECMO Community-acquired pneumonia - Broad-spectrum antibiotic - Coverage for atypical - Follow-up cultures-NGTD - De-escalate per results Troponin leak - Probably due to hypoxemia - Follow-up trend - Cardiology consult if trending up or EKG changes -Repeat EKG 01/16-sinus rhythm nonspecific T-wave abnormality, QT 415 ms, continue to monitor Hypertension -Initiate home meds, currently hydralazine 20 mg every 6 hours when necessary Malnutrition - 2Kal with a goal at 55 mL per hour DVT GI prophylaxis - Subcutaneous heparin and Pepcid Dispo: Discussed with poison control, who will be following and the patient's daughter as well as WOODWORKER at bedside. Will closely monitor for toxicity levels of major organs to include cardiac renal and hepatic levels. Continue to provide supportive care. Await recommendations from electrical assembly technician. Will attempt to begin CPAP trials this a.m.. Critical Care: This patient remains critically ill with one or more organ systems which are or may become a threat to life. I have spent in excess of 37 minutes discontinuously in the care and management of this patient. This time is exclusive of procedures, and includes, but is not limited to, evaluation of the patient, review of the medical record, discussions with family, consultants, nursing staff, or respiratory therapy, and documentation in the medical record. Physician Esha Vega Problem Qualifiers (1) Respiratory failure: Qualified Code: J96.01 - Acute respiratory failure with hypoxia and hypercapnia (2) Pulmonary edema: Qualified Code: J81.0 - Acute pulmonary edema (3) Pneumonia: Qualified Code: J18.9 - Pneumonia of both lungs due to infectious organism, unspecified part of lung Esha Vega MD Jan 17, 2017 07:38
[2017-01-17 08:47] LABS: BASOPHIL % 0.4 % (0.0-2.0); EOSINOPHIL % 0.2 % (0.0-4.0); HEMATOCRIT 35.2 % (35.0-46.0); LYMPH % 7.2 % (9.0-44.0); LYMPHOCYTE # 0.9 TH/MM3 (1.0-4.8); MEAN CORPUSCULAR HEMOGLOBIN 30.1 PG (27.0-34.0); MEAN CORPUSCULAR HGB CONC 33.1 % (32.0-36.0); NEUT % 85.2 % (16.0-70.0); PLATELET COUNT 127 TH/MM3 (150-450); RED BLOOD COUNT 3.87 MIL/MM3 (4.00-5.30); RED CELL DISTRIBUTION WIDTH 13.5 % (11.6-17.2); WHITE BLOOD COUNT 11.8 TH/MM3 (4.0-11.0)
--- NOTE | 2017-01-17 08:48 | RADRPT ---
EXAM DATE/TIME: 01/17/2017 06:36 [facility] COMPARISON: CHEST SINGLE AP, January 16, 2017, 10:56. INDICATIONS : Short of breath. MEDICAL HISTORY : None. SURGICAL HISTORY : None. ENCOUNTER: Subsequent ACUITY: 2 days PAIN SCORE: Non-responsive. LOCATION: Bilateral chest FINDINGS: A single view of the chest demonstrates cardiomegaly with bilateral airspace disease. Endotracheal tu be and nasogastric tube are unchanged.. Osseous structures are intact. CONCLUSION: Stable chest with diffuse bilateral airspace disease likely pulmonary edema. León Wyatt MD on January 17, 2017 at 8:46 Board Certified Radiologist. This report was verified electronically.
[2017-01-17 08:52] LABS: HEMO FLAGS DIFF FINAL
[2017-01-17] MEDS: AZITHROMYCIN INJ 500 MG in SODIUM CHLOR 0.9% 250 ML INJ 250 ML IV SCH (09:12)
[2017-01-17] MEDS: SODIUM CHLORIDE 0.9% FLUSH 5 ML FLUSH IV FLUSH SCH ×2 (09:12→20:56)
[2017-01-17 09:13] LABS: ALKALINE PHOSPHATASE 44 U/L (45-117); ALT (GPT) 79 U/L (10-53); ANION GAP 8 MEQ/L (5-15); AST (GOT) 66 U/L (15-37); BICARBONATE 31.2 MEQ/L (21.0-32.0); BLOOD UREA NITROGEN 27 MG/DL (7-18); CHLORIDE 110 MEQ/L (98-107); GLOMERULAR FILTRATION RATE 66 ML/MIN (>89); MAGNESIUM 2.2 MG/DL (1.5-2.5); POTASSIUM 3.8 MEQ/L (3.5-5.1); SODIUM (NA) 149 MEQ/L (136-145); TOTAL BILIRUBIN ADULT 0.3 MG/DL (0.2-1.0)
[2017-01-17] MEDS: methylPREDNISolone SOD SUCC 40 MG/1 ML VIAL IV SCH ×2 (09:14→20:55)
[2017-01-17] MEDS: DOCUSATE SODIUM 50 MG/SENNA 8.6 MG TAB GT SCH ×2 (09:14→20:56)
[2017-01-17] MEDS: ARTIFICIAL TEARS OPTH SOLN 15 ML BTL EACH EYE SCH ×3 (09:15→16:38)
[2017-01-17] MEDS: BENEPROTEIN POWDER 1 PACK G-TUBE SCH ×3 (09:15→16:38)
[2017-01-17] MEDS: FAMOTIDINE 20 MG/2 ML VIAL IV PUSH SCH ×2 (09:15→20:55)
[2017-01-17] MEDS: NUTRISOURCE FIBER POWDER 1 PACK G-TUBE SCH ×3 (09:16→16:38)
[2017-01-17 10:53] LABS: APTT (PATIENT) 20.7 SEC (24.3-30.1); INTERNATIONAL NORMALIZED RATIO 0.9 RATIO; PROTHROMBIN TIME - PATIENT 10.4 SEC (9.8-11.6)
[2017-01-17] MEDS ORDERED: PHARMACY ORDERED LAB XX ONE (11:45)
[2017-01-17 14:26] LABS: BLOOD GAS BASE EXCESS 8.9 mmol/L (-2-2); BLOOD GAS CARBOXYHEMOGLOBIN 1.4 % (0-4); BLOOD GAS HCO3 33 mmol/L (22-26); BLOOD GAS METHEMOGLOBIN 1.4 % (0-2); BLOOD GAS O2 HGB SATURATION 91 % (90-100); BLOOD GAS OXYGEN CONTENT 16.1 Vol % (12.0-20.0); BLOOD GAS PCO2 43 mmHg (38-42); BLOOD GAS PO2 65 mmHg (61-120); BLOOD GAS TOTAL HGB 12.5 G/DL (12.0-16.0); CRITICAL VALUE NO; TEMP CORR TO 98.6
[2017-01-17 14:27] LABS: DRAW SITE RT RADIAL; FIO2 45 %; NUMBER OF ARTERIAL PUNCTURES 1; OXYGEN DEVICE VENTILATOR; STAT NO; ULNAR PULSE PRESENT; VENT SETTINGS CPAP 5/10PS
--- NOTE | 2017-01-17 14:56 | EKG ---
Date Performed: 01/16/2017 Time Performed: 11:41:28 PTAGE: 66 years EKG: Sinus rhythm NONSPECIFIC ST & T-WAVE ABNORMALITY Compared to prior tracing no significant change BORDERLINE ECG PREVIOUS TRACING : 10/06/1997 22.35 DOCTOR: Vivek Burns Interpretating Date/Time 01/17/2017 14:53:17
--- NOTE | 2017-01-17 14:57 | EKG ---
Date Performed: 01/16/2017 Time Performed: 20:19:55 PTAGE: 66 years EKG: Sinus rhythm NONSPECIFIC T-WAVE ABNORMALITY Compared to prior tracing no significant change BORDERLINE ECG PREVIOUS TRACING : 01/16/2017 11.41 DOCTOR: Vivek Burns Interpretating Date/Time 01/17/2017 14:53:44
[2017-01-17] MEDS ORDERED: POTASSIUM CHLOR 20 MEQ PREMIX 100 ML IV ONE (15:15)
[2017-01-17 15:57] LABS: HEPARIN AB OD 0.062 O.D. (0.000-0.300); HEPARIN INDUCED PLATELET AB NEGATIVE (NEGATIVE)
[2017-01-17] MEDS: VANCOMYCIN 1,500 MG/NS 500 ML IV SCH ×2 (16:01)
[2017-01-17] MEDS: POTASSIUM PHOSPHATE MONOBASIC 500 MG TAB PO PRN (16:39)
[2017-01-17] MEDS: ACETAMINOPHEN 325 MG TAB PO PRN (16:40)
[2017-01-17] MEDS ORDERED: RESP: RACEPINEPHRINE 2.25% 0.5 ML NEB ONE (17:43)
[2017-01-17] MEDS: hydrALAZINE HCL 10 MG TAB PO SCH (18:00)
--- NOTE | 2017-01-17 19:44 | HHI.PR ---
Subjective Remarks 66 YOWF with Acute inhalant lung injury, RF Extubated today lethargic, on NC Daughter at BS Objective Vital Signs Vital Signs Date Time Temp Pulse Resp B/P Pulse Ox O2 Delivery O2 Flow Rate FiO2 01/17/17 18:00 84 01/17/17 17:47 27 01/17/17 17:30 93 Nasal Cannula 4 01/17/17 16:28 95 45 01/17/17 16:00 84 01/17/17 16:00 45 01/17/17 16:00 100.7 84 26 181/86 95 01/17/17 14:00 82 01/17/17 12:00 90 01/17/17 12:00 45 01/17/17 12:00 99.5 90 21 177/81 91 01/17/17 10:00 85 01/17/17 09:00 40 01/17/17 08:57 98 40 01/17/17 08:00 68 01/17/17 08:00 40 01/17/17 08:00 99.7 68 18 159/75 96 01/17/17 06:00 68 01/17/17 04:20 93 40 01/17/17 04:00 70 01/17/17 04:00 40 01/17/17 04:00 99.6 70 18 138/68 95 01/17/17 02:00 64 01/17/17 00:56 96 40 01/17/17 00:00 63 01/17/17 00:00 99.1 63 18 175/86 97 01/17/17 00:00 40 01/16/17 22:00 40 01/16/17 22:00 59 01/16/17 21:59 99 40 01/16/17 20:00 97 45 01/16/17 20:00 45 01/16/17 20:00 66 01/16/17 20:00 99.0 68 18 128/68 97 I/O 01/16/17 01/16/17 01/16/17 01/17/17 01/17/17 01/17/17 07:00 15:00 23:00 07:00 15:00 23:00 Intake Total 1749 ml 1741 ml 1688 ml 1748 ml 2000 ml Output Total 500 ml 1425 ml 950 ml 2000 ml 2400 ml Balance 1249 ml 316 ml 738 ml -252 ml -400 ml Intake IV Total 1508 ml 1506 ml 1388 ml 1398 ml 1619 ml Tube Feeding 241 ml 235 ml 200 ml 300 ml 141 ml Other 100 ml 50 ml 240 ml Output Urine Total 500 ml 1425 ml 950 ml 2000 ml 2400 ml Result Diagram: 01/17/17 0759 01/17/17 0759 Objective Remarks GENERAL: WBWN WF, sob SKIN: Warm and dry. HEAD: Normocephalic. EYES: No scleral icterus. No injection or drainage. NECK: Supple, trachea midline. No JVD or lymphadenopathy. CARDIOVASCULAR: Regular rate and rhythm without murmurs, gallops, or rubs. RESPIRATORY: Breath sounds equal bilaterally. No accessory muscle use. Bilat coarse crackles GASTROINTESTINAL: Abdomen soft, non-tender, nondistended. MUSCULOSKELETAL: No cyanosis, or edema. BACK: Nontender without obvious deformity. No CVA tenderness. A/P Assessment and Plan Resp failure, s/p extubation Pulm odema lung infilt Acute noxious inhalant lung injury PLAN: DW daughter at BS IV Solumedrol Aerosol nebs Cont Broad spectrum Abx Supplement 02 BIPAP prn Damián Jones MD Jan 17, 2017 19:44
[2017-01-17 23:02] LABS: BLOOD GAS BASE EXCESS 7.2 mmol/L (-2-2); BLOOD GAS CARBOXYHEMOGLOBIN 1.4 % (0-4); BLOOD GAS HCO3 31 mmol/L (22-26); BLOOD GAS METHEMOGLOBIN 1.4 % (0-2); BLOOD GAS O2 HGB SATURATION 88 % (90-100); BLOOD GAS OXYGEN CONTENT 15.3 Vol % (12.0-20.0); BLOOD GAS PCO2 38 mmHg (38-42); BLOOD GAS PO2 56 mmHg (61-120); BLOOD GAS TOTAL HGB 12.4 G/DL (12.0-16.0); CRITICAL VALUE YES; TEMP CORR TO 98.6
[2017-01-17 23:03] LABS: DRAW SITE RT RADIAL; LITER FLOW 4 L/M; NUMBER OF ARTERIAL PUNCTURES 1; OXYGEN DEVICE NASAL CANNULA; STAT YES; ULNAR PULSE PRESENT
[2017-01-18] VITALS (14 sets, daily range): BP systolic 140–188; BP diastolic 60–88; PULSE 71–84; RESP 22–31; TEMP 98.3–99.4; O2SAT 94–100
[2017-01-18 00:07] LABS: MAGNESIUM 2.1 MG/DL (1.5-2.5); POTASSIUM 3.3 MEQ/L (3.5-5.1)
[2017-01-18] MEDS ORDERED: ASPIRIN 300 MG SUPP RECTAL ONE (00:30)
[2017-01-18] MEDS: POTASSIUM CHLOR 20 MEQ PREMIX 100 ML IV PRN ×2 (00:42→02:56)
[2017-01-18] MEDS: FUROSEMIDE 20 MG/2 ML VIAL IV PUSH SCH ×5 (00:43→22:22)
[2017-01-18 01:41] LABS: CKMB 0.8 NG/ML (0.5-3.6)
[2017-01-18] MEDS: HEPARIN SODIUM - SQ 10,000 UNITS/ML VIAL SQ SCH ×3 (02:00→17:44)
[2017-01-18] MEDS: CHLORHEXIDINE GLUCONATE 2 % 1 PACK (2 CLOTHS) TOP SCH (04:00)
[2017-01-18] MEDS: RESP: ALBUTEROL 2.5 MG/IPRATROPIUM 0.5 MG NEB (SCH) INH ×2 (04:37→07:35)
--- NOTE | 2017-01-18 05:53 | RADRPT ---
EXAM DATE/TIME: 01/18/2017 04:12 [facility] COMPARISON: CHEST SINGLE AP, January 17, 2017, 6:36. INDICATIONS : Follow up respiratory status. MEDICAL HISTORY : None. SURGICAL HISTORY : None. ENCOUNTER: Subsequent ACUITY: 3 days PAIN SCORE: Non-responsive. LOCATION: Bilateral chest FINDINGS: Single AP view of the chest. Endotracheal tube and nasogastric tube no longer seen. Slight decrease i n bilateral pulmonary opacity. Persistent dense consolidation at the right lung base. Persistent card iac silhouette enlargement. No evidence of pneumothorax. CONCLUSION: Endotracheal tube and nasogastric tube no longer seen. Persistent bilateral pulmonary opacity most pr ominent at the right lung base. Hosea Saucedo MD on January 18, 2017 at 5:50 Board Certified Radiologist. This report was verified electronically.
[2017-01-18] MEDS: hydrALAZINE HCL 10 MG TAB PO SCH ×5 (06:00→22:22)
[2017-01-18] MEDS: SODIUM CHLOR 0.9% 1000 ML INJ 1,000 ML IV SCH (06:06)
[2017-01-18] MEDS: PIPERACIL-TAZO 4.5 GM PREMIX 100 ML IV SCH ×4 (06:07→20:48)
[2017-01-18] MEDS: hydrALAZINE HCL 20 MG/ML VIAL IVS PRN ×2 (08:14→23:06)
[2017-01-18 08:23] LABS: CKMB 1.2 NG/ML (0.5-3.6)
[2017-01-18] MEDS: NUTRISOURCE FIBER POWDER 1 PACK G-TUBE SCH ×3 (09:00→18:00)
[2017-01-18] MEDS: BENEPROTEIN POWDER 1 PACK G-TUBE SCH ×3 (09:00→18:00)
[2017-01-18] MEDS: DOCUSATE SODIUM 50 MG/SENNA 8.6 MG TAB GT SCH ×2 (09:00→20:48)
[2017-01-18] MEDS: FAMOTIDINE 20 MG/2 ML VIAL IV PUSH SCH ×2 (09:09→20:47)
[2017-01-18] MEDS: methylPREDNISolone SOD SUCC 40 MG/1 ML VIAL IV SCH ×2 (09:10→20:47)
[2017-01-18] MEDS: AZITHROMYCIN INJ 500 MG in SODIUM CHLOR 0.9% 250 ML INJ 250 ML IV SCH (09:14)
[2017-01-18] MEDS: SODIUM CHLORIDE 0.9% FLUSH 5 ML FLUSH IV FLUSH SCH ×2 (09:15→20:48)
[2017-01-18] MEDS: ARTIFICIAL TEARS OPTH SOLN 15 ML BTL EACH EYE SCH ×3 (12:49→18:00)
[2017-01-18] MEDS: RESP: ALBUTEROL 2.5 MG/IPRATROPIUM 0.5 MG NEB (PRN) INH (13:23)
[2017-01-18 13:37] LABS: CKMB 1.2 NG/ML (0.5-3.6)
[2017-01-18] MEDS: VANCOMYCIN 1,500 MG/NS 500 ML IV SCH ×2 (15:48)
--- NOTE | 2017-01-18 16:21 | OTSOAPIP ---
TIME SESSION COMPLETED: 1535 TREATMENT TIME: 0 MINS. CHART REVIEWED. RECEIVED ORDERS FOR OCCUPATIONAL THERAPY FROM DR. FELICIANO. REVIEWED ELECTRONIC MEDICAL RECORD AND ATTEMPTED TO SEE PATIENT FOR INITIAL EVALUATION, HOWEVER UPON ARRIVAL PATIENT IS FATIGUED. PATIENT AND DAUGHTER PRESENT IN ROOM REPORT PATIENT HAS BUSY DAY WITH FAMILY AND HAD INCREASED HEART RATE EARLIER IN DAY. THEY BOTH POLITELY DECLINE OT EVALUATION AT THIS TIME AND REQUEST FOR THERAPIST TO RETURN TOMORROW. REPORTED TO JAKE FRANCISCO. WILL REATTEMPT TOMORROW. INTERDISCIPLINARY COMMUNICATION: REVIEWED ELECTRONIC MEDICAL RECORD, SPOKE WITH JAKE FRANCISCO Therapist: Preethi Rios, OTR/L Signature on file
--- NOTE | 2017-01-18 19:14 | HHI.CCPN ---
Subjective Remarks/Hospital Course Young female in her 60s was brought in by ambulance from home for evaluation of shortness of breath. Patient had been complaining of shortness of breath since yesterday which has been gradually worsening. She has had a cough productive of greenish sputum. 911 was was called by the patient's significant other. EMS noted patient's O2 saturation to be 40-50% on room air and she was in obvious distress with a respiratory rate in the 40s. She was started on CPAP. Upon arrival to the emergency department she was intubated by ER attending. Subjective: 01/16: Contacted poison control this morning regarding inhalation injury. Discussed with , lightning rod erector, presentation of the patient after discussion with daughter. The possibilities of concentrated form of inhaled substance places the patient has a significant impact for highly porous effect which could've subsequently caused the pulmonary edema. Toxic fumes involving chrome, chromium, cadmium possible colbalt can cause lung destruction in this setting since the patient was not wearing respiratory equipment at the time. Of note greenish mucoid material noted upon intubation in the ED, there could be a secondary infectious risk process encouraged to current continue antibiotics. Poison control will continue following the patient's case. Recommendations were supportive care continue vigilance, to see if it reverses which may take days or weeks, and consideration of ECMO if respiratory decompensation continues to occur. Pulmonology consult has been initiated appreciate recommendations. 01/17: Tmax 99.6. The patient was weaned completely off of Versed infusion last night. The patient more alert this a.m., still not following commands. WBC count is trending down the patient continues on triple antibiotic therapy. Plan for CPAP trials today. Obtained MSDS form regarding patient was exposed to nitric oxide fumes and dissolved "pot metal" containing zinc, copper, tin, magnesium, aluminum, Iron, and cadmium. 01/18: The patient required increasing oxygen requirements during the last evening, however subsequently throughout the day today she has been maintained on 4 L nasal cannula without dyspnea and maintain an O2 saturation 95%. We'll continue to attempt to wean nasal cannula oxygen. The patient now tolerating a by mouth diet and physical therapy has been instituted. Patient creatinine kinase continues to be elevated will continue IV fluids for now. Leukocytosis is resolving, as well as thrombocytopenia platelet count is elevated to 127 today. Objective Vital Signs Date Time Temp Pulse Resp B/P Pulse Ox O2 Delivery O2 Flow Rate FiO2 01/18/17 16:00 98.3 84 26 141/60 95 01/18/17 07:36 Nasal Cannula 4.00 01/17/17 23:30 100 Intake and Output 01/17/17 01/17/17 01/18/17 08:00 16:00 00:00 Intake Total 1748 ml 2000 ml 967 ml Output Total 2000 ml 2400 ml 1400 ml Balance -252 ml -400 ml -433 ml Result Diagram: 01/17/17 0759 01/17/17 2342 Other Results Laboratory Tests Test 01/17/17 22:38 Blood Gas Puncture Site RT RADIAL Blood Gas Patient Temperature 98.6 Blood Gas HCO3 31 mmol/L (22-26) Blood Gas Base Excess 7.2 mmol/L (-2-2) Blood Gas Oxygen Saturation 88 % (90-100) Arterial Blood pH 7.51 (7.380-7.420) Arterial Blood Partial 38 mmHg (38-42) Pressure CO2 Arterial Blood Partial 56 mmHg Pressure O2 (61-120) Arterial Blood Oxygen Content 15.3 Vol % (12.0-20.0) Arterial Blood 1.4 % (0-4) Carboxyhemoglobin Arterial Blood Methemoglobin 1.4 % (0-2) Blood Gas Hemoglobin 12.4 G/DL (12.0-16.0) Oxygen Delivery Device NASAL CANNULA Blood Gas Liter Flow 4 L/M Imaging Last Impressions Chest X-Ray 01/15/17 0600 Signed Impressions: Service Date/Time: Sunday, January 15, 2017 05:20 - CONCLUSION: Changing pattern of infiltrates in the lungs, increased at the left lower lobe and decreased in the upper lungs. Elvin Lantigua MD Last 24 hours Impressions Chest X-Ray 01/14/17 0639 Signed Impressions: Service Date/Time: Saturday, January 14, 2017 06:48 - CONCLUSION: 1. ET tube in good position. 2. Diffuse consolidation likely representing edema or diffuse infection. Michael Diaz MD Objective Remarks GENERAL: Obese female, awake conversant and pleasant, conversation without dyspnea SKIN: Warm and dry. HEAD: Atraumatic. Normocephalic. EYES: Pupils equal and round. No scleral icterus. No injection or drainage. ENT: No nasal bleeding or discharge. Mucous membranes pink and moist. Currently nasal cannula at 4 L/m NECK: Trachea midline. No JVD. CARDIOVASCULAR: Normal rate, regular rhythm. RESPIRATORY: Mild expiratory wheeze noted bilaterally. Breath sounds equal bilaterally. GASTROINTESTINAL: Abdomen soft, non-tender, nondistended. No guarding. MUSCULOSKELETAL: Extremities without clubbing, cyanosis, or edema. No obvious deformities. NEUROLOGICAL: Awake and alert. RASS -2. Movement of extremities 4 not following commands Urinary Catheter: No Date of Insertion: Jan 15, 2017 Date of Removal: Jan 18, 2017 A/P Problem List: (1) Respiratory failure ICD Code: J96.90 Status: Acute (2) Pulmonary edema ICD Code: J81.1 Status: Acute (3) Pneumonia ICD Code: J18.9 Status: Acute (4) Elevated troponin I level ICD Code: R74.8 Status: Acute Assessment and Plan Respiratory failure Acute inhalation toxicity-nitric acid Pulmonary edema-secondary to inhalational injury - Pneumonia community acquired - Pulmonary edema due to fume inhalation-metals, vs. inhalation of noxious vapors from acids reportedly nitrogen dioxide, nitric acid - Mechanical ventilation - Broad-spectrum antibiotic-vancomycin, azithromycin, and Zosyn (day 4) -Continue Lasix 20 mg every 6 hours -Follow-up chest x-ray in am-pulmonary edema resolving - DuoNeb treatment - ABG and CXR daily- bilateral diffuse pulmonary opacity no significant interval change - Gentle diuresis -Pulmonology onboard for continued follow-up -Poison control contacted 01/16-recommendations supportive care, if continued pulmonary deterioration consider ECMO Community-acquired pneumonia - Broad-spectrum antibiotic - Coverage for atypical - Follow-up cultures-NGTD - De-escalate per results Troponin leak - Probably due to hypoxemia - Follow-up trend - Cardiology consult if EKG changes are present -Repeat EKG 01/16-sinus rhythm nonspecific T-wave abnormality, QT 415 ms, continue to monitor Hypertension -Initiate home meds, currently hydralazine 20 mg every 6 hours when necessary Malnutrition -Begin heart healthy diet -Bowel regimen DVT GI prophylaxis - Subcutaneous heparin and Pepcid Dispo: Discussed with poison control, who will be following and the patient's daughter as well as POSTMASTER at bedside. Will closely monitor for toxicity levels of major organs to include cardiac renal and hepatic levels. Currently creatinine kinase continues to be elevated, will continue IV hydration. Continue to provide supportive care. Pulmonology will follow, to include on outpatient basis upon discharge. Patient currently on 4 L nasal cannula will continue to try and wean. I discussed with him the possibility that patient will possibly require home O2 dependency. Critical Care: Level 2 Physician Esha Vega Problem Qualifiers (1) Respiratory failure: Qualified Code: J96.01 - Acute respiratory failure with hypoxia and hypercapnia (2) Pulmonary edema: Qualified Code: J81.0 - Acute pulmonary edema (3) Pneumonia: Qualified Code: J18.9 - Pneumonia of both lungs due to infectious organism, unspecified part of lung Esha Vega MD Jan 18, 2017 19:14
--- NOTE | 2017-01-18 19:57 | EKG ---
Date Performed: 01/17/2017 Time Performed: 22:56:43 PTAGE: 66 years EKG: SINUS BRADYCARDIA WITH MARKED SINUS ARRHYTHMIA MODERATE ST DEPRESSION ABNORMAL ECG PREVIOUS TRACING : 01/16/2017 20.19 Compared to the previous tracing rate slower, ST depression present DOCTOR: Ye Alston Interpretating Date/Time 01/18/2017 19:55:50
[2017-01-18] MEDS: SODIUM CHLOR 0.45% 1000 ML INJ 1,000 ML IV SCH (20:47)
--- NOTE | 2017-01-18 21:28 | HHI.PR ---
Subjective Remarks 66 YOWF with Acute inhalant lung injury, RF Extubated today Alert, awake Tolerates PO Daughter at BS Objective Vital Signs Vital Signs Date Time Temp Pulse Resp B/P Pulse Ox O2 Delivery O2 Flow Rate FiO2 01/18/17 16:00 98.3 84 26 141/60 95 01/18/17 14:00 82 01/18/17 10:00 82 01/18/17 08:00 98.5 82 22 176/81 94 01/18/17 08:00 82 01/18/17 07:36 94 Nasal Cannula 4.00 01/18/17 06:00 71 01/18/17 04:46 96 Nasal Cannula 4.00 01/18/17 04:00 71 01/18/17 04:00 98.6 71 26 188/88 100 01/18/17 02:00 75 01/18/17 00:59 99 Partial Rebreather 12.00 01/18/17 00:00 77 01/18/17 00:00 98.8 77 24 186/88 100 01/17/17 23:30 99 Non-Rebreather 15.00 100 01/17/17 22:33 92 Nasal Cannula 4.00 01/17/17 22:00 83 I/O 01/17/17 01/17/17 01/17/17 01/18/17 01/18/17 01/18/17 07:00 15:00 23:00 07:00 15:00 23:00 Intake Total 1748 ml 2000 ml 967 ml 912 ml 929 ml Output Total 2000 ml 2400 ml 1400 ml 1900 ml 3100 ml Balance -252 ml -400 ml -433 ml -988 ml -2171 ml Intake Oral 360 ml IV Total 1398 ml 1619 ml 967 ml 912 ml 569 ml Tube Feeding 300 ml 141 ml Other 50 ml 240 ml Output Urine Total 2000 ml 2400 ml 1400 ml 1900 ml 3100 ml # Bowel Movements 1 1 1 Result Diagram: 01/17/17 0759 01/17/17 2342 Objective Remarks GENERAL: WBWN WF, sob SKIN: Warm and dry. HEAD: Normocephalic. EYES: No scleral icterus. No injection or drainage. NECK: Supple, trachea midline. No JVD or lymphadenopathy. CARDIOVASCULAR: Regular rate and rhythm without murmurs, gallops, or rubs. RESPIRATORY: Breath sounds equal bilaterally. No accessory muscle use. Bilat coarse crackles GASTROINTESTINAL: Abdomen soft, non-tender, nondistended. MUSCULOSKELETAL: No cyanosis, or edema. BACK: Nontender without obvious deformity. No CVA tenderness. A/P Assessment and Plan Resp failure, s/p extubation Pulm odema lung infilt Acute noxious inhalant lung injury PLAN: IV Solumedrol Aerosol nebs Cont Broad spectrum Abx Supplement 02 BIPAP prn DW Damián Fraser MD Jan 18, 2017 21:28
[2017-01-19] VITALS (14 sets, daily range): BP systolic 145–163; BP diastolic 72–94; PULSE 62–80; RESP 20–30; TEMP 98.3–99.2; O2SAT 91–99
[2017-01-19] MEDS: HEPARIN SODIUM - SQ 10,000 UNITS/ML VIAL SQ SCH ×3 (01:29→17:31)
[2017-01-19] MEDS: CHLORHEXIDINE GLUCONATE 2 % 1 PACK (2 CLOTHS) TOP SCH (04:00)
[2017-01-19 05:38] LABS: HEMATOCRIT 38.3 % (35.0-46.0); MEAN CELL VOLUME 89.2 FL (80.0-100.0); MEAN CORPUSCULAR HEMOGLOBIN 30.4 PG (27.0-34.0); MEAN CORPUSCULAR HGB CONC 34.1 % (32.0-36.0); PLATELET COUNT 153 TH/MM3 (150-450); RED CELL DISTRIBUTION WIDTH 13.4 % (11.6-17.2); REVIEW FLAG FINAL
[2017-01-19] MEDS: SODIUM CHLOR 0.45% 1000 ML INJ 1,000 ML IV SCH ×2 (05:45→15:15)
[2017-01-19] MEDS: PIPERACIL-TAZO 4.5 GM PREMIX 100 ML IV SCH ×4 (05:45→21:42)
[2017-01-19] MEDS: hydrALAZINE HCL 10 MG TAB PO SCH ×4 (05:46→22:52)
[2017-01-19] MEDS: FUROSEMIDE 20 MG/2 ML VIAL IV PUSH SCH ×2 (05:46→11:48)
[2017-01-19] MEDS: VANCOMYCIN 1,500 MG/NS 500 ML IV SCH ×4 (05:47→22:53)
--- NOTE | 2017-01-19 05:48 | RADRPT ---
EXAM DATE/TIME: 01/19/2017 03:58 [facility] COMPARISON: CHEST SINGLE AP, January 18, 2017, 4:12. INDICATIONS : Shortness of breath, possible pulmonary disease. MEDICAL HISTORY : None. SURGICAL HISTORY : None. ENCOUNTER: Subsequent ACUITY: 4 - 6 days PAIN SCORE: Non-responsive. LOCATION: Bilateral chest FINDINGS: Single AP view of the chest. Persistent marked cardiac silhouette enlargement. Mild central prominenc e and indistinctness of the pulmonary vasculature suggesting pulmonary vascular congestion. CONCLUSION: Cardiac silhouette enlargement and mild pulmonary vascular congestion. Hosea Saucedo MD on January 19, 2017 at 5:45 Board Certified Radiologist. This report was verified electronically.
[2017-01-19] MEDS: hydrALAZINE HCL 20 MG/ML VIAL IVS PRN (06:06)
[2017-01-19 06:10] LABS: BICARBONATE 30.6 MEQ/L (21.0-32.0); MAGNESIUM 2.4 MG/DL (1.5-2.5); POTASSIUM 3.7 MEQ/L (3.5-5.1)
[2017-01-19 06:40] LABS: CKMB 1.2 NG/ML (0.5-3.6)
[2017-01-19] MEDS: DOCUSATE SODIUM 50 MG/SENNA 8.6 MG TAB GT SCH ×2 (09:00→21:00)
[2017-01-19] MEDS: BENEPROTEIN POWDER 1 PACK G-TUBE SCH ×3 (09:00→17:32)
[2017-01-19] MEDS: NUTRISOURCE FIBER POWDER 1 PACK G-TUBE SCH ×3 (09:00→17:32)
[2017-01-19] MEDS: ARTIFICIAL TEARS OPTH SOLN 15 ML BTL EACH EYE SCH ×3 (09:00→17:32)
[2017-01-19] MEDS: AZITHROMYCIN INJ 500 MG in SODIUM CHLOR 0.9% 250 ML INJ 250 ML IV SCH (09:03)
[2017-01-19] MEDS: FAMOTIDINE 20 MG/2 ML VIAL IV PUSH SCH ×2 (09:04→21:32)
[2017-01-19] MEDS: methylPREDNISolone SOD SUCC 40 MG/1 ML VIAL IV SCH ×2 (09:04→21:41)
[2017-01-19] MEDS: SODIUM CHLORIDE 0.9% FLUSH 5 ML FLUSH IV FLUSH SCH ×2 (09:07→21:32)
--- NOTE | 2017-01-19 10:03 | HHI.PR ---
Subjective Remarks Critical Are specialist Notes: Young female in her 60s was brought in by ambulance from home for evaluation of shortness of breath. Patient had been complaining of shortness of breath since yesterday which has been gradually worsening. She has had a cough productive of greenish sputum. 911 was was called by the patient's significant other. EMS noted patient's O2 saturation to be 40-50% on room air and she was in obvious distress with a respiratory rate in the 40s. She was started on CPAP. Upon arrival to the emergency department she was intubated by ER attending. Subjective: 01/16: Contacted poison control this morning regarding inhalation injury. Discussed with , armored service technician, presentation of the patient after discussion with daughter. The possibilities of concentrated form of inhaled substance places the patient has a significant impact for highly porous effect which could've subsequently caused the pulmonary edema. Toxic fumes involving chrome, chromium, cadmium possible [place] can cause lung destruction in this setting since the patient was not wearing respiratory equipment at the time. Of note greenish mucoid material noted upon intubation in the ED, there could be a secondary infectious risk process encouraged to current continue antibiotics. Poison control will continue following the patient's case. Recommendations were supportive care continue vigilance, to see if it reverses which may take days or weeks, and consideration of ECMO if respiratory decompensation continues to occur. Pulmonology consult has been initiated appreciate recommendations. 01/17: Tmax 99.6. The patient was weaned completely off of Versed infusion last night. The patient more alert this a.m., still not following commands. WBC count is trending down the patient continues on triple antibiotic therapy. Plan for CPAP trials today. Obtained MSDS form regarding patient was exposed to nitric oxide fumes and dissolved "pot metal" containing zinc, copper, tin, magnesium, aluminum, Iron, and cadmium. 01/18: The patient required increasing oxygen requirements during the last evening, however subsequently throughout the day today she has been maintained on 4 L nasal cannula without dyspnea and maintain an O2 saturation 95%. We'll continue to attempt to wean nasal cannula oxygen. The patient now tolerating a by mouth diet and physical therapy has been instituted. Patient creatinine kinase continues to be elevated will continue IV fluids for now. Leukocytosis is resolving, as well as thrombocytopenia platelet count is elevated to 127 today. Hospitalist Notes 01/19 Patient stable in her bedroom, clear lungs continue using Nasal cannula. at 4 L/min. her in room discussed with nurse, improving condition she has Valdivia cath in place, will need to be removed as soon as not receiving Furosemide IV, will wait final recommendations by he Primary engineer specialist Doctor Robert Objective Vital Signs Date Time Temp Pulse Resp B/P Pulse Ox O2 Delivery O2 Flow Rate FiO2 01/19/17 09:17 95 Nasal Cannula 4.00 01/19/17 06:00 63 01/19/17 04:00 70 01/19/17 04:00 70 30 145/94 99 01/19/17 02:00 67 01/19/17 00:00 80 01/19/17 00:00 98.5 80 20 155/77 91 01/18/17 22:00 71 01/18/17 20:35 95 Nasal Cannula 4.00 01/18/17 20:00 99.4 74 31 140/65 94 01/18/17 20:00 74 01/18/17 16:00 98.3 84 26 141/60 95 01/18/17 14:00 82 01/18/17 10:00 82 I/O 01/18/17 01/18/17 01/18/17 01/19/17 01/19/17 01/19/17 07:00 15:00 23:00 07:00 15:00 23:00 Intake Total 912 ml 929 ml 863 ml 1299 ml Output Total 1900 ml 3100 ml 875 ml 2200 ml Balance -988 ml -2171 ml -12 ml -901 ml Intake Oral 360 ml 240 ml 480 ml IV Total 912 ml 569 ml 623 ml 819 ml Output Urine Total 1900 ml 3100 ml 875 ml 2200 ml # Bowel Movements 1 1 1 Result Diagram: 01/19/17 0509 01/19/17 0509 Imaging Last Impressions Chest X-Ray 01/19/17 0600 Signed Impressions: Service Date/Time: January 03:58 - CONCLUSION: Cardiac silhouette enlargement and mild pulmonary vascular congestion. Hosea Saucedo MD Procedures No procedures performed. Other Results Laboratory Tests Test 01/14/17 01/16/17 01/17/17 01/17/17 19:00 10:00 07:59 10:13 Nasal Screen MRSA (PCR) POSITIVE Heparin-Induced Platelet Ab NEGATIVE ([facility]) HIPA Patient Optical Density 0.062 O.D. Neutrophils (%) (Auto) 85.2 % Lymphocytes (%) (Auto) 7.2 % Monocytes (%) (Auto) 7.0 % Eosinophils (%) (Auto) 0.2 % Basophils (%) (Auto) 0.4 % Neutrophils # (Auto) 10.0 TH/MM3 Lymphocytes # (Auto) 0.9 TH/MM3 Monocytes # (Auto) 0.8 TH/MM3 Eosinophils # (Auto) 0.0 TH/MM3 Basophils # (Auto) 0.0 TH/MM3 CBC Comment DIFF FINAL Differential Comment Total Bilirubin 0.3 MG/DL Aspartate Amino Transf 66 U/L (AST/SGOT) Alanine Aminotransferase 79 U/L (ALT/SGPT) Alkaline Phosphatase 44 U/L Total Protein 5.6 GM/DL Albumin 2.5 GM/DL Prothrombin Time 10.4 SEC Prothromb Time International 0.9 RATIO Ratio Activated Partial 20.7 SEC Thromboplast Time Test 01/17/17 01/17/17 01/17/17 01/18/17 14:18 14:20 22:38 12:43 Vancomycin Level Trough 7.2 MCG/ML Blood Gas Ventilator Setting CPAP 5/10PS Blood Gas Inspired Oxygen 45 % Blood Gas Puncture Site RT RADIAL Blood Gas Patient Temperature 98.6 Blood Gas HCO3 31 mmol/L Blood Gas Base Excess 7.2 mmol/L Blood Gas Oxygen Saturation 88 % Arterial Blood pH 7.51 Arterial Blood Partial 38 mmHg Pressure CO2 Arterial Blood Partial 56 mmHg Pressure O2 Arterial Blood Oxygen Content 15.3 Vol % Arterial Blood 1.4 % Carboxyhemoglobin Arterial Blood Methemoglobin 1.4 % Blood Gas Hemoglobin 12.4 G/DL Oxygen Delivery Device NASAL CANNULA Blood Gas Liter Flow 4 L/M Troponin I 0.02 NG/ML Test 01/19/17 05:09 White Blood Count 12.0 TH/MM3 Red Blood Count 4.30 MIL/MM3 Hemoglobin 13.1 GM/DL Hematocrit 38.3 % Mean Corpuscular Volume 89.2 FL Mean Corpuscular Hemoglobin 30.4 PG Mean Corpuscular Hemoglobin 34.1 % Concent Red Cell Distribution Width 13.4 % Platelet Count 153 TH/MM3 Mean Platelet Volume 9.6 FL Sodium Level 140 MEQ/L Potassium Level 3.7 MEQ/L Chloride Level 99 MEQ/L Carbon Dioxide Level 30.6 MEQ/L Anion Gap 10 MEQ/L Blood Urea Nitrogen 24 MG/DL Creatinine 0.77 MG/DL Estimat Glomerular Filtration 75 ML/MIN Rate Random Glucose 120 MG/DL Calcium Level 8.8 MG/DL Phosphorus Level 3.6 MG/DL Magnesium Level 2.4 MG/DL Total Creatine Kinase 243 U/L Creatine Kinase MB 1.2 NG/ML Creatine Kinase MB % 0.5 % Objective Remarks GENERAL: Obese Patient with Mild Respiratory Distress. SKIN: Warm and dry. HEAD: Atraumatic. Normocephalic. EYES: Pupils equal and round. No scleral icterus. No injection or drainage. ENT: No nasal bleeding or discharge. Mucous membranes pink and moist. Currently nasal cannula at 4 L/m NECK: Trachea midline. No JVD. CARDIOVASCULAR: Normal rate, regular rhythm. RESPIRATORY: Clear to auscultations bilateral no wheezing or crackles. GASTROINTESTINAL: Abdomen soft, non-tender, nondistended. No guarding. MUSCULOSKELETAL: Extremities without clubbing, cyanosis, or edema. No obvious deformities. NEUROLOGICAL: Awake and alert. Movement of extremities 4 not following commands Medications and IVs Current Medications Medications (Trade) Dose Ordered Sig/Kari Route Start Time Stop Time Status Last Admin (NS 1000 ml Inj) 1,000 ml @ 0 mls/hr Q0M IV 01/14/17 09:09 01/18/17 06:06 (NS Flush) 2 ml UNSCH PRN IV FLUSH 01/14/17 09:15 (NS Flush) 2 ml BID IV FLUSH 01/14/17 21:00 01/19/17 09:07 (Tylenol) 650 mg Q6H PRN PO 01/14/17 09:15 01/17/17 16:40 (Morphine Inj) 2 mg Q2H PRN IV 01/14/17 09:15 (Pepcid Inj) 20 mg Q12HR IV PUSH 01/14/17 21:00 01/19/17 09:04 (Tears Naturale Opth Soln) 1 drop TID EACH EYE 01/14/17 13:00 01/18/17 15:48 (Zofran Inj) 4 mg Q6H PRN IV 01/14/17 09:15 (Reglan Inj) 10 mg Q6H PRN IV 01/14/17 09:15 (Celeste-Colace) 2 tab BID GT 01/14/17 21:00 01/17/17 09:14 (Heparin Inj) 5,000 units Q8H SQ 01/14/17 10:00 01/19/17 09:04 Miscellaneous Information 1 Q361D XX 01/14/17 09:15 (Chlorhexidine 2% Cloth) 3 pack Taper DAILY@04 TOP 01/15/17 04:00 01/11/18 03:59 01/19/17 04:00 Chlorhexidine Gluconate 3 pack 3 pack UNSCH PRN TOP 01/14/17 09:15 Piperacillin Sod/ Tazobactam Sod 100 ml @ 200 mls/hr Q6H IV 01/14/17 11:00 01/19/17 05:45 Azithromycin 500 mg/Sodium Chloride 250 ml @ 250 mls/hr Q24H IV 01/15/17 09:00 01/19/17 09:03 (Vancomycin Consult Pharmacy) 0 ml @ 0 mls/hr UNSCH XX 01/14/17 09:15 (SoluMEDROL INJ) 40 mg Q12H IV 01/14/17 10:00 01/19/17 09:04 (Nutrisource Fiber Powder) 1 pack TID G-TUBE 01/14/17 13:00 01/17/17 16:38 Protein 2 pack 2 pack TID G-TUBE 01/15/17 13:00 01/17/17 16:38 Potassium Chloride 100 ml @ 50 mls/hr Q2H PRN IV 01/15/17 12:15 Potassium Chloride 100 ml @ 50 mls/hr Q2H PRN IV 01/15/17 12:15 Potassium Chloride 100 ml @ 25 mls/hr UNSCH PRN IV 01/15/17 12:15 Potassium Chloride 100 ml @ 50 mls/hr Q2H PRN IV 01/15/17 12:15 01/18/17 02:56 (Magnesium Sulfate Inj/NS Inj) 100 ml @ 50 mls/hr UNSCH PRN IV 01/15/17 12:15 Magnesium Oxide 800 mg 800 mg UNSCH PRN PO 01/15/17 12:15 (Magnesium Sulfate Inj/NS Inj) 100 ml @ 50 mls/hr UNSCH PRN IV 01/15/17 12:15 Potassium Phosphate 2000 mg 2,000 mg Q4H PRN PO 01/15/17 12:15 01/17/17 16:39 (Sodium Phosphate Inj/NS 250 ml Inj) 250 ml @ 42 mls/hr UNSCH PRN IV 01/15/17 12:15 Potassium Phosphate 2000 mg 2,000 mg UNSCH PRN PO/TUBE 01/15/17 12:15 (Potassium Phosphate Inj/NS 250 ml Inj) 260 ml @ 42 mls/hr UNSCH PRN IV 01/15/17 12:15 (Lasix Inj) 20 mg Q6HR IV PUSH 01/15/17 12:30 01/19/17 05:46 (Apresoline Inj) 20 mg Q2H PRN IVS 01/17/17 03:45 01/19/17 06:06 Hydralazine HCl 10 mg 10 mg Q6HR PO 01/17/17 18:00 01/19/17 05:46 (Vancomycin Inj/ NS 500 ml Inj) 515 ml @ 257.5 mls/ hr Q18H IV 01/17/17 16:00 01/19/17 05:47 Miscellaneous Information SPECIFIC LAB TO BE SAM... ONCE ONCE XX 01/19/17 21:45 01/19/17 21:46 (1/2 NS 1000 ml Inj) 1,000 ml @ 100 mls/hr Q10H IV 01/18/17 19:15 01/19/17 05:45 A/P Problem List: (1) Malignant hypertension ICD Code: I10 (2) Sepsis ICD Code: A41.9 (3) Pulmonary edema ICD Code: J81.1 (4) Respiratory failure ICD Code: J96.90 (5) Pneumonia ICD Code: J18.9 (6) Elevated troponin I level ICD Code: R74.8 Assessment and Plan 1. VDRF Improved status post Acute inhalation toxicity Nitric Acid, with secondary Pulmonary Edema secondary to inhalational injury, Pneumonia Community acquired, was on Mechanical Ventilation, Broad spectrum antibiotic Vancomycin,Azithromycin and Zosyn, Lasix, CXR Pulmonary edema resolving. continue Bronchodilator, Mucolytic and Incentive spirometry. Steroids. Continue Oxygen, BiPAP PRN. engineer specialist following. Poison control contacted 01/16 recommended supportive care. if deterioration consider ECMO continue with Valdivia Cath also receiving, Furosemide, will follow specialist recommendations. New Blood cultures negative in 2 days. 2. CAP on Broad spectrum antibiotics. following blood cultures and de escalate 3. Troponin Leak Probably due to Hypoxemia. recommended Cardiology consult if EKG changes 4. Hypertension to continue Home medicines, Hydralazine as needed 5. Malnutrition, Dietitian following. 6. Hypokalemia replaced. Seen in the presence of her , all questions answered to the best of my abilities. DVT GI prophylaxis - Subcutaneous heparin and Pepcid Discharge Planning Expected in the next two days. Problem Qualifiers (1) Sepsis: Qualified Code: A41.9 - Sepsis, due to unspecified organism (2) Pulmonary edema: Qualified Code: J81.0 - Acute pulmonary edema (3) Respiratory failure: Qualified Code: J96.01 - Acute respiratory failure with hypoxia and hypercapnia (4) Pneumonia: Qualified Code: J18.9 - Pneumonia of both lungs due to infectious organism, unspecified part of lung Ceasar Dudley MD Jan 19, 2017 10:03
[2017-01-19] MEDS: MORPHINE SULFATE 4 MG/ML INJ IV PRN ×2 (12:24→21:41)
[2017-01-19] MEDS ORDERED: POTASSIUM CHLORIDE 20 MEQ CONTROLLED RELEASE TAB PO ONE (16:00)
--- NOTE | 2017-01-19 16:49 | HHI.PR ---
Subjective Remarks 66 YOWF with Acute inhalant lung injury, RF Extubated today Alert, awake Tolerates PO Diyreasing with Lasix Objective Vital Signs Vital Signs Date Time Temp Pulse Resp B/P Pulse Ox O2 Delivery O2 Flow Rate FiO2 01/19/17 14:00 72 01/19/17 12:00 75 01/19/17 12:00 98.5 75 26 163/85 95 01/19/17 10:00 79 01/19/17 09:17 95 Nasal Cannula 4.00 01/19/17 08:00 64 01/19/17 08:00 98.3 64 22 150/72 93 01/19/17 06:00 63 01/19/17 04:00 70 01/19/17 04:00 70 30 145/94 99 01/19/17 02:00 67 01/19/17 00:00 80 01/19/17 00:00 98.5 80 20 155/77 91 01/18/17 22:00 71 01/18/17 20:35 95 Nasal Cannula 4.00 01/18/17 20:00 99.4 74 31 140/65 94 01/18/17 20:00 74 I/O 01/18/17 01/18/17 01/18/17 01/19/17 01/19/17 01/19/17 07:00 15:00 23:00 07:00 15:00 23:00 Intake Total 912 ml 929 ml 863 ml 1299 ml 2040 ml Output Total 1900 ml 3100 ml 875 ml 2200 ml 2400 ml Balance -988 ml -2171 ml -12 ml -901 ml -360 ml Intake Oral 360 ml 240 ml 480 ml 720 ml IV Total 912 ml 569 ml 623 ml 819 ml 1320 ml Output Urine Total 1900 ml 3100 ml 875 ml 2200 ml 2400 ml # Bowel Movements 1 1 1 1 Result Diagram: 01/19/17 0509 01/19/17 0509 Objective Remarks GENERAL: WBWN WF, sob SKIN: Warm and dry. HEAD: Normocephalic. EYES: No scleral icterus. No injection or drainage. NECK: Supple, trachea midline. No JVD or lymphadenopathy. CARDIOVASCULAR: Regular rate and rhythm without murmurs, gallops, or rubs. RESPIRATORY: Breath sounds equal bilaterally. No accessory muscle use. Bilat coarse crackles GASTROINTESTINAL: Abdomen soft, non-tender, nondistended. MUSCULOSKELETAL: No cyanosis, or edema. BACK: Nontender without obvious deformity. No CVA tenderness. A/P Assessment and Plan Resp failure, s/p extubation Pulm odema lung infilt Acute noxious inhalant lung injury PLAN: IV Solumedrol Aerosol nebs Cont Broad spectrum Abx Supplement 02 BIPAP prn Lasix 40 mg daily KCL 20 meq daily BMP in AM Damián Jones MD Jan 19, 2017 16:49
[2017-01-19] MEDS ORDERED: PHARMACY ORDERED LAB XX ONE (21:45)
[2017-01-20] VITALS (13 sets, daily range): BP systolic 145–163; BP diastolic 70–85; PULSE 56–99; RESP 18–34; TEMP 97.7–98.6; O2SAT 92–100
[2017-01-20] MEDS: HEPARIN SODIUM - SQ 10,000 UNITS/ML VIAL SQ SCH ×3 (00:43→17:25)
[2017-01-20] MEDS: SODIUM CHLOR 0.45% 1000 ML INJ 1,000 ML IV SCH ×3 (00:43→20:39)
[2017-01-20] MEDS: RESP: ALBUTEROL 2.5 MG/IPRATROPIUM 0.5 MG NEB (PRN) INH ×4 (01:50→22:01)
[2017-01-20] MEDS: CHLORHEXIDINE GLUCONATE 2 % 1 PACK (2 CLOTHS) TOP SCH (04:00)
[2017-01-20] MEDS: hydrALAZINE HCL 10 MG TAB PO SCH ×3 (04:55→17:26)
[2017-01-20] MEDS: PIPERACIL-TAZO 4.5 GM PREMIX 100 ML IV SCH ×4 (04:57→20:40)
[2017-01-20 05:40] LABS: BICARBONATE 30.5 MEQ/L (21.0-32.0); POTASSIUM 4.4 MEQ/L (3.5-5.1)
[2017-01-20] MEDS: ARTIFICIAL TEARS OPTH SOLN 15 ML BTL EACH EYE SCH ×3 (09:00→17:26)
[2017-01-20] MEDS: NUTRISOURCE FIBER POWDER 1 PACK G-TUBE SCH ×3 (09:00→17:26)
[2017-01-20] MEDS: DOCUSATE SODIUM 50 MG/SENNA 8.6 MG TAB GT SCH ×2 (09:00→20:38)
[2017-01-20] MEDS: BENEPROTEIN POWDER 1 PACK G-TUBE SCH ×3 (09:00→17:26)
[2017-01-20] MEDS: AZITHROMYCIN INJ 500 MG in SODIUM CHLOR 0.9% 250 ML INJ 250 ML IV SCH (09:22)
[2017-01-20] MEDS: FUROSEMIDE 40 MG/4 ML VIAL IV PUSH SCH (09:23)
[2017-01-20] MEDS: methylPREDNISolone SOD SUCC 40 MG/1 ML VIAL IV SCH ×2 (09:24→20:38)
[2017-01-20] MEDS: FAMOTIDINE 20 MG/2 ML VIAL IV PUSH SCH ×2 (09:24→20:38)
[2017-01-20] MEDS: POTASSIUM CHLORIDE 20 MEQ CONTROLLED RELEASE TAB PO SCH (09:24)
[2017-01-20] MEDS: SODIUM CHLORIDE 0.9% FLUSH 5 ML FLUSH IV FLUSH SCH ×2 (09:25→20:38)
--- NOTE | 2017-01-20 11:50 | HHI.PR ---
Subjective Remarks Critical Are specialist Notes: Young female in her 60s was brought in by ambulance from home for evaluation of shortness of breath. Patient had been complaining of shortness of breath since yesterday which has been gradually worsening. She has had a cough productive of greenish sputum. 911 was was called by the patient's significant other. EMS noted patient's O2 saturation to be 40-50% on room air and she was in obvious distress with a respiratory rate in the 40s. She was started on CPAP. Upon arrival to the emergency department she was intubated by ER attending. Subjective: 01/16: Contacted poison control this morning regarding inhalation injury. Discussed with , steam clean machine operator, presentation of the patient after discussion with daughter. The possibilities of concentrated form of inhaled substance places the patient has a significant impact for highly porous effect which could've subsequently caused the pulmonary edema. Toxic fumes involving chrome, chromium, cadmium possible colbalt can cause lung destruction in this setting since the patient was not wearing respiratory equipment at the time. Of note greenish mucoid material noted upon intubation in the ED, there could be a secondary infectious risk process encouraged to current continue antibiotics. Poison control will continue following the patient's case. Recommendations were supportive care continue vigilance, to see if it reverses which may take days or weeks, and consideration of ECMO if respiratory decompensation continues to occur. Pulmonology consult has been initiated appreciate recommendations. 01/17: Tmax 99.6. The patient was weaned completely off of Versed infusion last night. The patient more alert this a.m., still not following commands. WBC count is trending down the patient continues on triple antibiotic therapy. Plan for CPAP trials today. Obtained MSDS form regarding patient was exposed to nitric oxide fumes and dissolved "pot metal" containing zinc, copper, tin, magnesium, aluminum, Iron, and cadmium. 01/18: The patient required increasing oxygen requirements during the last evening, however subsequently throughout the day today she has been maintained on 4 L nasal cannula without dyspnea and maintain an O2 saturation 95%. We'll continue to attempt to wean nasal cannula oxygen. The patient now tolerating a by mouth diet and physical therapy has been instituted. Patient creatinine kinase continues to be elevated will continue IV fluids for now. Leukocytosis is resolving, as well as thrombocytopenia platelet count is elevated to 127 today. Hospitalist Notes 01/19 Patient stable in her bedroom, clear lungs continue using Nasal cannula. at 4 L/min. her in room discussed with nurse, improving condition she has Valdivia cath in place, will need to be removed as soon as not receiving Furosemide IV, will wait final recommendations by he Primary prescription benefit specialist Doctor Robert 01/20 Seen in her bedroom she had chest pain yesterday discussed with patient in the room her and her Daughter also other two relatives present, continue with moderate respiratory insufficiency, Pulmonary following, on IV Solu-Medrol, Bronchodilator, Mucolytic, Lasix to 40 mg daily and Potassium replacement. Objective Vital Signs Date Time Temp Pulse Resp B/P Pulse Ox O2 Delivery O2 Flow Rate FiO2 01/20/17 09:28 98 Nasal Cannula 3.00 01/20/17 06:00 63 01/20/17 04:00 98.2 60 18 145/80 96 01/20/17 04:00 62 01/20/17 02:00 62 01/20/17 00:00 98.6 62 22 158/77 92 01/20/17 00:00 62 01/19/17 22:39 27 01/19/17 22:00 71 01/19/17 20:02 95 Nasal Cannula 4.00 01/19/17 20:00 67 01/19/17 20:00 98.7 67 22 145/79 95 01/19/17 18:00 80 01/19/17 16:00 62 01/19/17 16:00 99.2 62 23 160/82 96 01/19/17 14:00 72 01/19/17 12:00 75 01/19/17 12:00 98.5 75 26 163/85 95 I/O 01/19/17 01/19/17 01/19/17 01/20/17 01/20/17 01/20/17 07:00 15:00 23:00 07:00 15:00 23:00 Intake Total 1299 ml 2040 ml 1346 ml 1437 ml Output Total 2200 ml 2400 ml 800 ml 750 ml Balance -901 ml -360 ml 546 ml 687 ml Intake Oral 480 ml 720 ml 480 ml 480 ml IV Total 819 ml 1320 ml 866 ml 957 ml Output Urine Total 2200 ml 2400 ml 800 ml 750 ml # Bowel Movements 1 1 Result Diagram: 01/19/17 0509 01/20/17 0417 Imaging Last Impressions Chest X-Ray 01/19/17 0600 Signed Impressions: Service Date/Time: January 03:58 - CONCLUSION: Cardiac silhouette enlargement and mild pulmonary vascular congestion. Hosea Saucedo MD Procedures No procedures performed. Other Results Laboratory Tests Test 01/16/17 01/17/17 01/17/17 01/17/17 10:00 07:59 10:13 14:20 Heparin-Induced Platelet Ab NEGATIVE ([facility]) HIPA Patient Optical Density 0.062 O.D. Neutrophils (%) (Auto) 85.2 % Lymphocytes (%) (Auto) 7.2 % Monocytes (%) (Auto) 7.0 % Eosinophils (%) (Auto) 0.2 % Basophils (%) (Auto) 0.4 % Neutrophils # (Auto) 10.0 TH/MM3 Lymphocytes # (Auto) 0.9 TH/MM3 Monocytes # (Auto) 0.8 TH/MM3 Eosinophils # (Auto) 0.0 TH/MM3 Basophils # (Auto) 0.0 TH/MM3 CBC Comment DIFF FINAL Differential Comment Total Bilirubin 0.3 MG/DL Aspartate Amino Transf 66 U/L (AST/SGOT) Alanine Aminotransferase 79 U/L (ALT/SGPT) Alkaline Phosphatase 44 U/L Total Protein 5.6 GM/DL Albumin 2.5 GM/DL Prothrombin Time 10.4 SEC Prothromb Time International 0.9 RATIO Ratio Activated Partial 20.7 SEC Thromboplast Time Blood Gas Ventilator Setting CPAP 5/10PS Blood Gas Inspired Oxygen 45 % Test 01/17/17 01/18/17 01/19/17 01/19/17 22:38 12:43 05:09 22:30 Blood Gas Puncture Site RT RADIAL Blood Gas Patient Temperature 98.6 Blood Gas HCO3 31 mmol/L Blood Gas Base Excess 7.2 mmol/L Blood Gas Oxygen Saturation 88 % Arterial Blood pH 7.51 Arterial Blood Partial 38 mmHg Pressure CO2 Arterial Blood Partial 56 mmHg Pressure O2 Arterial Blood Oxygen Content 15.3 Vol % Arterial Blood 1.4 % Carboxyhemoglobin Arterial Blood Methemoglobin 1.4 % Blood Gas Hemoglobin 12.4 G/DL Oxygen Delivery Device NASAL CANNULA Blood Gas Liter Flow 4 L/M Troponin I 0.02 NG/ML White Blood Count 12.0 TH/MM3 Red Blood Count 4.30 MIL/MM3 Hemoglobin 13.1 GM/DL Hematocrit 38.3 % Mean Corpuscular Volume 89.2 FL Mean Corpuscular Hemoglobin 30.4 PG Mean Corpuscular Hemoglobin 34.1 % Concent Red Cell Distribution Width 13.4 % Platelet Count 153 TH/MM3 Mean Platelet Volume 9.6 FL Phosphorus Level 3.6 MG/DL Magnesium Level 2.4 MG/DL Total Creatine Kinase 243 U/L Creatine Kinase MB 1.2 NG/ML Creatine Kinase MB % 0.5 % Vancomycin Level Trough 10.6 MCG/ML Test 01/20/17 04:17 Sodium Level 139 MEQ/L Potassium Level 4.4 MEQ/L Chloride Level 102 MEQ/L Carbon Dioxide Level 30.5 MEQ/L Anion Gap 7 MEQ/L Blood Urea Nitrogen 23 MG/DL Creatinine 0.83 MG/DL Estimat Glomerular Filtration 69 ML/MIN Rate Random Glucose 137 MG/DL Calcium Level 8.5 MG/DL Objective Remarks GENERAL: Obese Patient with Mild Respiratory Distress. SKIN: Warm and dry. HEAD: Atraumatic. Normocephalic. EYES: Pupils equal and round. No scleral icterus. No injection or drainage. ENT: No nasal bleeding or discharge. Mucous membranes pink and moist. Currently nasal cannula at 4 L/m NECK: Trachea midline. No JVD. CARDIOVASCULAR: Normal rate, regular rhythm. RESPIRATORY: Clear to auscultations bilateral no wheezing or crackles. GASTROINTESTINAL: Abdomen soft, non-tender, nondistended. No guarding. MUSCULOSKELETAL: Extremities without clubbing, cyanosis, or edema. No obvious deformities. NEUROLOGICAL: Awake and alert. Movement of extremities 4 not following commands Medications and IVs Current Medications Medications (Trade) Dose Ordered Sig/Kari Route Start Time Stop Time Status Last Admin (NS 1000 ml Inj) 1,000 ml @ 0 mls/hr Q0M IV 01/14/17 09:09 01/18/17 06:06 (NS Flush) 2 ml UNSCH PRN IV FLUSH 01/14/17 09:15 (NS Flush) 2 ml BID IV FLUSH 01/14/17 21:00 01/20/17 09:25 (Tylenol) 650 mg Q6H PRN PO 01/14/17 09:15 01/17/17 16:40 (Morphine Inj) 2 mg Q2H PRN IV 01/14/17 09:15 01/19/17 21:41 (Pepcid Inj) 20 mg Q12HR IV PUSH 01/14/17 21:00 01/20/17 09:24 (Tears Naturale Opth Soln) 1 drop TID EACH EYE 01/14/17 13:00 01/18/17 15:48 (Zofran Inj) 4 mg Q6H PRN IV 01/14/17 09:15 (Reglan Inj) 10 mg Q6H PRN IV 01/14/17 09:15 (Celeste-Colace) 2 tab BID GT 01/14/17 21:00 01/17/17 09:14 (Heparin Inj) 5,000 units Q8H SQ 01/14/17 10:00 01/20/17 09:24 Miscellaneous Information 1 Q361D XX 01/14/17 09:15 (Chlorhexidine 2% Cloth) Taper DAILY@04 TOP 01/15/17 04:00 01/11/18 03:59 01/20/17 04:00 Chlorhexidine Gluconate 3 pack 3 pack UNSCH PRN TOP 01/14/17 09:15 Piperacillin Sod/ Tazobactam Sod 100 ml @ 200 mls/hr Q6H IV 01/14/17 11:00 01/20/17 04:57 Azithromycin 500 mg/Sodium Chloride 250 ml @ 250 mls/hr Q24H IV 01/15/17 09:00 01/20/17 09:22 (Vancomycin Consult Pharmacy) 0 ml @ 0 mls/hr UNSCH XX 01/14/17 09:15 (SoluMEDROL INJ) 40 mg Q12H IV 01/14/17 10:00 01/20/17 09:24 (Nutrisource Fiber Powder) 1 pack TID G-TUBE 01/14/17 13:00 01/17/17 16:38 Protein 2 pack 2 pack TID G-TUBE 01/15/17 13:00 01/17/17 16:38 Potassium Chloride 100 ml @ 50 mls/hr Q2H PRN IV 01/15/17 12:15 Potassium Chloride 100 ml @ 50 mls/hr Q2H PRN IV 01/15/17 12:15 Potassium Chloride 100 ml @ 25 mls/hr UNSCH PRN IV 01/15/17 12:15 Potassium Chloride 100 ml @ 50 mls/hr Q2H PRN IV 01/15/17 12:15 01/18/17 02:56 (Magnesium Sulfate Inj/NS Inj) 100 ml @ 50 mls/hr UNSCH PRN IV 01/15/17 12:15 Magnesium Oxide 800 mg 800 mg UNSCH PRN PO 01/15/17 12:15 (Magnesium Sulfate Inj/NS Inj) 100 ml @ 50 mls/hr UNSCH PRN IV 01/15/17 12:15 Potassium Phosphate 2000 mg 2,000 mg Q4H PRN PO 01/15/17 12:15 01/17/17 16:39 (Sodium Phosphate Inj/NS 250 ml Inj) 250 ml @ 42 mls/hr UNSCH PRN IV 01/15/17 12:15 Potassium Phosphate 2000 mg 2,000 mg UNSCH PRN PO/TUBE 01/15/17 12:15 (Potassium Phosphate Inj/NS 250 ml Inj) 260 ml @ 42 mls/hr UNSCH PRN IV 01/15/17 12:15 (Apresoline Inj) 20 mg Q2H PRN IVS 01/17/17 03:45 01/19/17 06:06 Hydralazine HCl 10 mg 10 mg Q6HR PO 01/17/17 18:00 01/20/17 04:55 (1/2 NS 1000 ml Inj) 1,000 ml @ 100 mls/hr Q10H IV 01/18/17 19:15 01/19/17 05:45 (Lasix Inj) 40 mg DAILY IV PUSH 01/20/17 09:00 01/20/17 09:23 Potassium Chloride 20 meq 20 meq DAILY PO 01/20/17 09:00 01/20/17 09:24 (Vancomycin Inj/ NS 500 ml Inj) 517.5 ml @ 258.75 mls/ hr Q18H IV 01/20/17 15:00 Miscellaneous Information SPECIFIC LAB TO BE SAM... ONCE ONCE XX 01/22/17 20:45 01/22/17 20:46 A/P Problem List: (1) Malignant hypertension ICD Code: I10 (2) Sepsis ICD Code: A41.9 (3) Pulmonary edema ICD Code: J81.1 (4) Respiratory failure ICD Code: J96.90 (5) Pneumonia ICD Code: J18.9 (6) Elevated troponin I level ICD Code: R74.8 Assessment and Plan 1. VDRF Improved status post Acute inhalation toxicity Nitric Acid, with secondary Pulmonary Edema secondary to inhalational injury, Pneumonia Community acquired, was on Mechanical Ventilation, Broad spectrum antibiotic Vancomycin,Azithromycin and Zosyn, Lasix, CXR Pulmonary edema resolving. continue Bronchodilator, Mucolytic and Incentive spirometry. Steroids. Continue Oxygen, BiPAP PRN. prescription benefit specialist following. Poison control contacted 01/16 recommended supportive care. if deterioration consider ECMO continue with Valdivia Cath also receiving, Furosemide, will follow specialist recommendations. New Blood cultures negative in 2 days. 2. CAP on Broad spectrum antibiotics. following blood cultures negative in three days, but sputum culture growing MRSA on Vancomycin. Pharmacy following. 3. Troponin Leak Probably due to Hypoxemia. recommended Cardiology consult if EKG changes 4. Hypertension to continue Home medicines, Hydralazine as needed 5. Malnutrition, Dietitian following. 6. Obesity strongly recommended diet and exercise as outpatient. Seen in the presence of her and Daughter and other two relatives in the room, all questions answered to the best of my abilities. DVT GI prophylaxis - Subcutaneous heparin and Pepcid Discharge Planning Expected in the next two days. Problem Qualifiers (1) Sepsis: Qualified Code: A41.9 - Sepsis, due to unspecified organism (2) Pulmonary edema: Qualified Code: J81.0 - Acute pulmonary edema (3) Respiratory failure: Qualified Code: J96.01 - Acute respiratory failure with hypoxia and hypercapnia (4) Pneumonia: Qualified Code: J18.9 - Pneumonia of both lungs due to infectious organism, unspecified part of lung Ceasar Dudley MD Jan 20, 2017 11:50
--- NOTE | 2017-01-20 13:51 | EKG ---
Date Performed: 01/20/2017 Time Performed: 12:30:29 PTAGE: 66 years EKG: Sinus rhythm POSSIBLE LEFT ATRIAL ENLARGEMENT Mild nonspecific ST segment changes ABNORMAL ECG COMPARED TO PRIOR ELECTROCARDIOGRAM, Rate has increased and ST segment changes are less marked. PREVIOUS TRACING : 01/17/2017 22.56 DOCTOR: Jose Salomon Interpretating Date/Time 01/20/2017 13:49:22
[2017-01-20 14:33] LABS: CREATINE KINASE 214 U/L (26-192)
[2017-01-20 14:45] LABS: CKMB 1.9 NG/ML (0.5-3.6)
[2017-01-20] MEDS: VANCOMYCIN INJ 1,750 MG in SODIUM CHLORID 0.9% 500 ML INJ 500 ML IV SCH (15:53)
[2017-01-20] MEDS: ACETAMINOPHEN 325 MG TAB PO PRN (18:58)
--- NOTE | 2017-01-20 20:28 | HHI.PR ---
Subjective Remarks 66 YOWF with Acute inhalant lung injury, RF Extubated01/19 Alert, awake Tolerates PO Diureasing with Lasix Had episode of SOB this AM, better now does't sleep well' I normally sleep 2 hrs each night" Objective Vital Signs Vital Signs Date Time Temp Pulse Resp B/P Pulse Ox O2 Delivery O2 Flow Rate FiO2 01/20/17 18:00 99 01/20/17 16:00 97.9 69 28 150/74 95 01/20/17 16:00 69 01/20/17 14:00 85 01/20/17 12:00 97.7 73 34 153/85 98 01/20/17 12:00 73 01/20/17 10:00 83 01/20/17 09:28 98 Nasal Cannula 3.00 01/20/17 08:00 56 01/20/17 08:00 97.9 56 20 163/73 100 01/20/17 06:00 63 01/20/17 04:00 98.2 60 18 145/80 96 01/20/17 04:00 62 01/20/17 02:00 62 01/20/17 00:00 98.6 62 22 158/77 92 01/20/17 00:00 62 01/19/17 22:39 27 01/19/17 22:00 71 I/O 01/19/17 01/19/17 01/19/17 01/20/17 01/20/17 01/20/17 07:00 15:00 23:00 07:00 15:00 23:00 Intake Total 1299 ml 2040 ml 1346 ml 1437 ml 3637 ml Output Total 2200 ml 2400 ml 800 ml 750 ml 4300 ml Balance -901 ml -360 ml 546 ml 687 ml -663 ml Intake Oral 480 ml 720 ml 480 ml 480 ml 2340 ml IV Total 819 ml 1320 ml 866 ml 957 ml 1297 ml Output Urine Total 2200 ml 2400 ml 800 ml 750 ml 4300 ml # Bowel Movements 1 1 2 Result Diagram: 01/19/17 0509 01/20/17 0417 Objective Remarks GENERAL: WBWN WF, sob SKIN: Warm and dry. HEAD: Normocephalic. EYES: No scleral icterus. No injection or drainage. NECK: Supple, trachea midline. No JVD or lymphadenopathy. CARDIOVASCULAR: Regular rate and rhythm without murmurs, gallops, or rubs. RESPIRATORY: Breath sounds equal bilaterally. No accessory muscle use. Bilat coarse crackles GASTROINTESTINAL: Abdomen soft, non-tender, nondistended. MUSCULOSKELETAL: No cyanosis, or edema. BACK: Nontender without obvious deformity. No CVA tenderness. A/P Assessment and Plan Resp failure, s/p extubation Pulm odema lung infilt Acute noxious inhalant lung injury PLAN: IV Solumedrol Aerosol nebs Cont Broad spectrum Abx Supplement 02 BIPAP prn Lasix 40 mg daily KCL 20 meq daily Damián Jones MD Jan 20, 2017 20:28
[2017-01-20] MEDS: MORPHINE SULFATE 4 MG/ML INJ IV PRN (21:58)
[2017-01-21] VITALS (12 sets, daily range): BP systolic 113–161; BP diastolic 70–98; PULSE 58–82; RESP 18–24; TEMP 97.8–98.6; O2SAT 93–98
[2017-01-21] MEDS: hydrALAZINE HCL 10 MG TAB PO SCH ×4 (00:36→17:40)
[2017-01-21] MEDS: RESP: ALBUTEROL 2.5 MG/IPRATROPIUM 0.5 MG NEB (PRN) INH (02:20)
[2017-01-21] MEDS: PIPERACIL-TAZO 4.5 GM PREMIX 100 ML IV SCH (03:41)
[2017-01-21] MEDS: HEPARIN SODIUM - SQ 10,000 UNITS/ML VIAL SQ SCH ×3 (03:41→17:41)
[2017-01-21] MEDS: CHLORHEXIDINE GLUCONATE 2 % 1 PACK (2 CLOTHS) TOP SCH (03:41)
[2017-01-21] MEDS: SODIUM CHLOR 0.45% 1000 ML INJ 1,000 ML IV SCH ×2 (03:42→17:15)
[2017-01-21] MEDS: ARTIFICIAL TEARS OPTH SOLN 15 ML BTL EACH EYE SCH ×3 (08:43→17:39)
[2017-01-21] MEDS: FAMOTIDINE 20 MG/2 ML VIAL IV PUSH SCH ×2 (08:44→20:24)
[2017-01-21] MEDS: NUTRISOURCE FIBER POWDER 1 PACK G-TUBE SCH ×3 (08:44→17:40)
[2017-01-21] MEDS: DOCUSATE SODIUM 50 MG/SENNA 8.6 MG TAB GT SCH ×3 (08:44→21:00)
[2017-01-21] MEDS: FUROSEMIDE 40 MG/4 ML VIAL IV PUSH SCH (08:44)
[2017-01-21] MEDS: AZITHROMYCIN INJ 500 MG in SODIUM CHLOR 0.9% 250 ML INJ 250 ML IV SCH (08:44)
[2017-01-21] MEDS: POTASSIUM CHLORIDE 20 MEQ CONTROLLED RELEASE TAB PO SCH (08:44)
[2017-01-21] MEDS: SODIUM CHLORIDE 0.9% FLUSH 5 ML FLUSH IV FLUSH SCH ×2 (08:47→20:24)
[2017-01-21] MEDS: BENEPROTEIN POWDER 1 PACK G-TUBE SCH ×3 (09:00→17:40)
[2017-01-21] MEDS: VANCOMYCIN INJ 1,750 MG in SODIUM CHLORID 0.9% 500 ML INJ 500 ML IV SCH (09:00)
[2017-01-21] MEDS: methylPREDNISolone SOD SUCC 40 MG/1 ML VIAL IV SCH ×2 (09:08→20:24)
[2017-01-21] MEDS ORDERED: Vancomycin Consult Pharmacy 1 EA OTHER SCH (10:00)
--- NOTE | 2017-01-21 10:04 | HHI.PR ---
Subjective Remarks Critical Are specialist Notes: Young female in her 60s was brought in by ambulance from home for evaluation of shortness of breath. Patient had been complaining of shortness of breath since yesterday which has been gradually worsening. She has had a cough productive of greenish sputum. 911 was was called by the patient's significant other. EMS noted patient's O2 saturation to be 40-50% on room air and she was in obvious distress with a respiratory rate in the 40s. She was started on CPAP. Upon arrival to the emergency department she was intubated by ER attending. Subjective: 01/16: Contacted poison control this morning regarding inhalation injury. Discussed with , lift operator, presentation of the patient after discussion with daughter. The possibilities of concentrated form of inhaled substance places the patient has a significant impact for highly porous effect which could've subsequently caused the pulmonary edema. Toxic fumes involving chrome, chromium, cadmium possible [place]balt can cause lung destruction in this setting since the patient was not wearing respiratory equipment at the time. Of note greenish mucoid material noted upon intubation in the ED, there could be a secondary infectious risk process encouraged to current continue antibiotics. Poison control will continue following the patient's case. Recommendations were supportive care continue vigilance, to see if it reverses which may take days or weeks, and consideration of ECMO if respiratory decompensation continues to occur. Pulmonology consult has been initiated appreciate recommendations. 01/17: Tmax 99.6. The patient was weaned completely off of Versed infusion last night. The patient more alert this a.m., still not following commands. WBC count is trending down the patient continues on triple antibiotic therapy. Plan for CPAP trials today. Obtained MSDS form regarding patient was exposed to nitric oxide fumes and dissolved "pot metal" containing zinc, copper, tin, magnesium, aluminum, Iron, and cadmium. 01/18: The patient required increasing oxygen requirements during the last evening, however subsequently throughout the day today she has been maintained on 4 L nasal cannula without dyspnea and maintain an O2 saturation 95%. We'll continue to attempt to wean nasal cannula oxygen. The patient now tolerating a by mouth diet and physical therapy has been instituted. Patient creatinine kinase continues to be elevated will continue IV fluids for now. Leukocytosis is resolving, as well as thrombocytopenia platelet count is elevated to 127 today. Hospitalist Notes 01/19 Patient stable in her bedroom, clear lungs continue using Nasal cannula. at 4 L/min. her in room discussed with nurse, improving condition she has Valdivia cath in place, will need to be removed as soon as not receiving Furosemide IV, will wait final recommendations by he Primary pst specialist Doctor Robert 01/20 Seen in her bedroom she had chest pain yesterday discussed with patient in the room her and her Daughter also other two relatives present, continue with moderate respiratory insufficiency, Pulmonary following, on IV Solu-Medrol, Bronchodilator, Mucolytic, Lasix to 40 mg daily and Potassium replacement. 01/21 Stable in her bedroom tolerating diet, also oxygen 2 to 4 L/min and maintain her oxygen Saturation in low 90s, will remove Valdivia cath and transfer patient out of ICU her lungs are clear, her Daughter and another two three relatives in the room. no new issues, discussed with nurse Miss Cox Objective Vital Signs Date Time Temp Pulse Resp B/P Pulse Ox O2 Delivery O2 Flow Rate FiO2 01/21/17 09:11 94 Nasal Cannula 2.00 01/21/17 08:00 70 01/21/17 08:00 98.0 69 22 138/70 93 01/21/17 06:00 71 01/21/17 04:00 98.0 67 24 139/72 93 01/21/17 04:00 67 01/21/17 02:00 58 01/21/17 00:00 62 01/21/17 00:00 97.9 62 24 113/98 96 01/20/17 22:03 14 01/20/17 22:00 92 Nasal Cannula 3.00 01/20/17 22:00 69 01/20/17 20:00 81 01/20/17 20:00 98.1 81 25 151/70 96 01/20/17 19:58 18 01/20/17 18:00 99 01/20/17 16:00 97.9 69 28 150/74 95 01/20/17 16:00 69 01/20/17 14:00 85 01/20/17 12:00 97.7 73 34 153/85 98 01/20/17 12:00 73 I/O 01/20/17 01/20/17 01/20/17 01/21/17 01/21/17 01/21/17 07:00 15:00 23:00 07:00 15:00 23:00 Intake Total 1437 ml 3637 ml 1548 ml 1007 ml Output Total 750 ml 4300 ml 600 ml 1800 ml Balance 687 ml -663 ml 948 ml -793 ml Intake Oral 480 ml 2340 ml 600 ml 200 ml IV Total 957 ml 1297 ml 948 ml 807 ml Output Urine Total 750 ml 4300 ml 600 ml 1800 ml # Bowel Movements 1 2 1 2 Result Diagram: 01/19/17 0509 01/21/17 0439 Imaging Last Impressions Chest X-Ray 01/19/17 0600 Signed Impressions: Service Date/Time: January 03:58 - CONCLUSION: Cardiac silhouette enlargement and mild pulmonary vascular congestion. Hosea Saucedo MD Procedures No procedures performed. Other Results Laboratory Tests Test 01/16/17 01/17/17 01/17/17 01/17/17 10:00 07:59 10:13 14:20 Heparin-Induced Platelet Ab NEGATIVE ([facility]) HIPA Patient Optical Density 0.062 O.D. Neutrophils (%) (Auto) 85.2 % Lymphocytes (%) (Auto) 7.2 % Monocytes (%) (Auto) 7.0 % Eosinophils (%) (Auto) 0.2 % Basophils (%) (Auto) 0.4 % Neutrophils # (Auto) 10.0 TH/MM3 Lymphocytes # (Auto) 0.9 TH/MM3 Monocytes # (Auto) 0.8 TH/MM3 Eosinophils # (Auto) 0.0 TH/MM3 Basophils # (Auto) 0.0 TH/MM3 CBC Comment DIFF FINAL Differential Comment Total Bilirubin 0.3 MG/DL Aspartate Amino Transf 66 U/L (AST/SGOT) Alanine Aminotransferase 79 U/L (ALT/SGPT) Alkaline Phosphatase 44 U/L Total Protein 5.6 GM/DL Albumin 2.5 GM/DL Prothrombin Time 10.4 SEC Prothromb Time International 0.9 RATIO Ratio Activated Partial 20.7 SEC Thromboplast Time Blood Gas Ventilator Setting CPAP 5/10PS Blood Gas Inspired Oxygen 45 % Test 01/17/17 01/19/17 01/19/17 01/20/17 22:38 05:09 22:30 04:17 Blood Gas Puncture Site RT RADIAL Blood Gas Patient Temperature 98.6 Blood Gas HCO3 31 mmol/L Blood Gas Base Excess 7.2 mmol/L Blood Gas Oxygen Saturation 88 % Arterial Blood pH 7.51 Arterial Blood Partial 38 mmHg Pressure CO2 Arterial Blood Partial 56 mmHg Pressure O2 Arterial Blood Oxygen Content 15.3 Vol % Arterial Blood 1.4 % Carboxyhemoglobin Arterial Blood Methemoglobin 1.4 % Blood Gas Hemoglobin 12.4 G/DL Oxygen Delivery Device NASAL CANNULA Blood Gas Liter Flow 4 L/M White Blood Count 12.0 TH/MM3 Red Blood Count 4.30 MIL/MM3 Hemoglobin 13.1 GM/DL Hematocrit 38.3 % Mean Corpuscular Volume 89.2 FL Mean Corpuscular Hemoglobin 30.4 PG Mean Corpuscular Hemoglobin 34.1 % Concent Red Cell Distribution Width 13.4 % Platelet Count 153 TH/MM3 Mean Platelet Volume 9.6 FL Phosphorus Level 3.6 MG/DL Magnesium Level 2.4 MG/DL Vancomycin Level Trough 10.6 MCG/ML Sodium Level 139 MEQ/L Potassium Level 4.4 MEQ/L Chloride Level 102 MEQ/L Carbon Dioxide Level 30.5 MEQ/L Anion Gap 7 MEQ/L Blood Urea Nitrogen 23 MG/DL Random Glucose 137 MG/DL Calcium Level 8.5 MG/DL Test 01/20/17 01/21/17 13:55 04:39 Total Creatine Kinase 214 U/L Creatine Kinase MB 1.9 NG/ML Creatine Kinase MB % 0.9 % Troponin I LESS THAN 0.02 NG/ML Creatinine 0.77 MG/DL Estimat Glomerular Filtration 75 ML/MIN Rate Objective Remarks GENERAL: Obese Patient with Mild Respiratory Distress. SKIN: Warm and dry. HEAD: Atraumatic. Normocephalic. EYES: Pupils equal and round. No scleral icterus. No injection or drainage. ENT: No nasal bleeding or discharge. Mucous membranes pink and moist. Currently nasal cannula at 4 L/m NECK: Trachea midline. No JVD. CARDIOVASCULAR: Normal rate, regular rhythm. RESPIRATORY: Clear to auscultations bilateral no wheezing or crackles. GASTROINTESTINAL: Abdomen soft, non-tender, nondistended. No guarding. MUSCULOSKELETAL: Extremities without clubbing, cyanosis, or edema. No obvious deformities. NEUROLOGICAL: Awake and alert. Movement of extremities 4 not following commands Medications and IVs Current Medications Medications (Trade) Dose Ordered Sig/Kari Route Start Time Stop Time Status Last Admin (NS 1000 ml Inj) 1,000 ml @ 0 mls/hr Q0M IV 01/14/17 09:09 01/18/17 06:06 (NS Flush) 2 ml UNSCH PRN IV FLUSH 01/14/17 09:15 (NS Flush) 2 ml BID IV FLUSH 01/14/17 21:00 01/21/17 08:47 (Tylenol) 650 mg Q6H PRN PO 01/14/17 09:15 01/20/17 18:58 (Morphine Inj) 2 mg Q2H PRN IV 01/14/17 09:15 01/20/17 21:58 (Pepcid Inj) 20 mg Q12HR IV PUSH 01/14/17 21:00 01/21/17 08:44 (Tears Naturale Opth Soln) 1 drop TID EACH EYE 01/14/17 13:00 01/21/17 08:43 (Zofran Inj) 4 mg Q6H PRN IV 01/14/17 09:15 (Reglan Inj) 10 mg Q6H PRN IV 01/14/17 09:15 (Celeste-Colace) 2 tab BID GT 01/14/17 21:00 01/21/17 08:44 (Heparin Inj) 5,000 units Q8H SQ 01/14/17 10:00 01/21/17 03:41 Miscellaneous Information 1 Q361D XX 01/14/17 09:15 (Chlorhexidine 2% Cloth) Taper DAILY@04 TOP 01/15/17 04:00 01/11/18 03:59 01/20/17 04:00 Chlorhexidine Gluconate 3 pack 3 pack UNSCH PRN TOP 01/14/17 09:15 Piperacillin Sod/ Tazobactam Sod 100 ml @ 200 mls/hr Q6H IV 01/14/17 11:00 01/21/17 03:41 Azithromycin 500 mg/Sodium Chloride 250 ml @ 250 mls/hr Q24H IV 01/15/17 09:00 01/21/17 08:44 (Vancomycin Consult Pharmacy) 0 ml @ 0 mls/hr UNSCH XX 01/14/17 09:15 (SoluMEDROL INJ) 40 mg Q12H IV 01/14/17 10:00 01/21/17 09:08 (Nutrisource Fiber Powder) 1 pack TID G-TUBE 01/14/17 13:00 01/21/17 08:44 Protein 2 pack 2 pack TID G-TUBE 01/15/17 13:00 01/17/17 16:38 Potassium Chloride 100 ml @ 50 mls/hr Q2H PRN IV 01/15/17 12:15 Potassium Chloride 100 ml @ 50 mls/hr Q2H PRN IV 01/15/17 12:15 Potassium Chloride 100 ml @ 25 mls/hr UNSCH PRN IV 01/15/17 12:15 Potassium Chloride 100 ml @ 50 mls/hr Q2H PRN IV 01/15/17 12:15 01/18/17 02:56 (Magnesium Sulfate Inj/NS Inj) 100 ml @ 50 mls/hr UNSCH PRN IV 01/15/17 12:15 Magnesium Oxide 800 mg 800 mg UNSCH PRN PO 01/15/17 12:15 (Magnesium Sulfate Inj/NS Inj) 100 ml @ 50 mls/hr UNSCH PRN IV 01/15/17 12:15 Potassium Phosphate 2000 mg 2,000 mg Q4H PRN PO 01/15/17 12:15 01/17/17 16:39 (Sodium Phosphate Inj/NS 250 ml Inj) 250 ml @ 42 mls/hr UNSCH PRN IV 01/15/17 12:15 Potassium Phosphate 2000 mg 2,000 mg UNSCH PRN PO/TUBE 01/15/17 12:15 (Potassium Phosphate Inj/NS 250 ml Inj) 260 ml @ 42 mls/hr UNSCH PRN IV 01/15/17 12:15 (Apresoline Inj) 20 mg Q2H PRN IVS 01/17/17 03:45 01/19/17 06:06 Hydralazine HCl 10 mg 10 mg Q6HR PO 01/17/17 18:00 01/21/17 06:24 (1/2 NS 1000 ml Inj) 1,000 ml @ 100 mls/hr Q10H IV 01/18/17 19:15 01/21/17 03:42 (Lasix Inj) 40 mg DAILY IV PUSH 01/20/17 09:00 01/21/17 08:44 Potassium Chloride 20 meq 20 meq DAILY PO 01/20/17 09:00 01/21/17 08:44 (Vancomycin Inj/ NS 500 ml Inj) 517.5 ml @ 258.75 mls/ hr Q18H IV 01/20/17 15:00 01/21/17 09:00 Miscellaneous Information SPECIFIC LAB TO BE SAM... ONCE ONCE XX 01/22/17 20:45 01/22/17 20:46 (Vancomycin Consult Pharmacy) 0 ml @ 0 mls/hr UNSCH OTHER 01/21/17 10:00 UNV A/P Problem List: (1) Malignant hypertension ICD Code: I10 (2) Sepsis ICD Code: A41.9 (3) Pulmonary edema ICD Code: J81.1 (4) Respiratory failure ICD Code: J96.90 (5) Pneumonia ICD Code: J18.9 (6) Elevated troponin I level ICD Code: R74.8 Assessment and Plan 1. VDRF Improved status post Acute inhalation toxicity Nitric Acid, with secondary Pulmonary Edema secondary to inhalational injury, Pneumonia Community acquired, was on Mechanical Ventilation, Broad spectrum antibiotic Vancomycin,Azithromycin and Zosyn, Lasix, CXR Pulmonary edema resolving. continue Bronchodilator, Mucolytic and Incentive spirometry. Steroids. Continue Oxygen, BiPAP PRN. pst specialist following. Poison control contacted 01/16 recommended supportive care. if deterioration consider ECMO Blood culture negative in three days, transfer to Med Surg, No BSI, continue Telemetry by now discontinued Zosyn 2. CAP on Broad spectrum antibiotics. following blood cultures negative in three days, but sputum culture growing MRSA on Vancomycin. Pharmacy following. 3. Troponin Leak Probably due to Hypoxemia. recommended Cardiology consult if EKG changes 4. Hypertension to continue Home medicines, Hydralazine as needed 5. Malnutrition, Dietitian following. 6. Obesity strongly recommended diet and exercise as outpatient. transfer to Med/Surg Remove Valdivia cath Discontinued Zosyn Seen in the presence of her Daughter and other three relatives in the room, all questions answered to the best of my abilities. DVT GI prophylaxis - Subcutaneous heparin and Pepcid Discharge Planning Expected in the next two days. Problem Qualifiers (1) Sepsis: Qualified Code: A41.9 - Sepsis, due to unspecified organism (2) Pulmonary edema: Qualified Code: J81.0 - Acute pulmonary edema (3) Respiratory failure: Qualified Code: J96.01 - Acute respiratory failure with hypoxia and hypercapnia (4) Pneumonia: Qualified Code: J18.9 - Pneumonia of both lungs due to infectious organism, unspecified part of lung Ceasar Dudley MD Jan 21, 2017 10:04
--- NOTE | 2017-01-21 15:36 | HHI.PR ---
Subjective Remarks 66 YOWF with Acute inhalant lung injury, RF Extubated01/19 Alert, awake Tolerates PO does't sleep well' I normally sleep 2 hrs each night Objective Vital Signs Vital Signs Date Time Temp Pulse Resp B/P Pulse Ox O2 Delivery O2 Flow Rate FiO2 01/21/17 14:00 70 01/21/17 12:00 97.8 69 22 125/83 93 01/21/17 12:00 70 01/21/17 10:00 70 01/21/17 09:11 94 Nasal Cannula 2.00 01/21/17 08:00 70 01/21/17 08:00 98.0 69 22 138/70 93 01/21/17 06:00 71 01/21/17 04:00 98.0 67 24 139/72 93 01/21/17 04:00 67 01/21/17 02:00 58 01/21/17 00:00 62 01/21/17 00:00 97.9 62 24 113/98 96 01/20/17 22:03 14 01/20/17 22:00 92 Nasal Cannula 3.00 01/20/17 22:00 69 01/20/17 20:00 81 01/20/17 20:00 98.1 81 25 151/70 96 01/20/17 19:58 18 01/20/17 18:00 99 01/20/17 16:00 97.9 69 28 150/74 95 01/20/17 16:00 69 I/O 01/20/17 01/20/17 01/20/17 01/21/17 01/21/17 01/21/17 07:00 15:00 23:00 07:00 15:00 23:00 Intake Total 1437 ml 3637 ml 1548 ml 1007 ml 1305 ml Output Total 750 ml 4300 ml 600 ml 1800 ml 2800 ml Balance 687 ml -663 ml 948 ml -793 ml -1495 ml Intake Oral 480 ml 2340 ml 600 ml 200 ml 480 ml IV Total 957 ml 1297 ml 948 ml 807 ml 825 ml Output Urine Total 750 ml 4300 ml 600 ml 1800 ml 2800 ml # Bowel Movements 1 2 1 2 2 Result Diagram: 01/19/17 0509 01/21/17 6029 Objective Remarks GENERAL: WBWN WF, sob SKIN: Warm and dry. HEAD: Normocephalic. EYES: No scleral icterus. No injection or drainage. NECK: Supple, trachea midline. No JVD or lymphadenopathy. CARDIOVASCULAR: Regular rate and rhythm without murmurs, gallops, or rubs. RESPIRATORY: Breath sounds equal bilaterally. No accessory muscle use. Bilat coarse crackles GASTROINTESTINAL: Abdomen soft, non-tender, nondistended. MUSCULOSKELETAL: No cyanosis, or edema. BACK: Nontender without obvious deformity. No CVA tenderness. A/P Assessment and Plan Resp failure, s/p extubation Pulm odema lung infilt Acute noxious inhalant lung injury PLAN: IV Solumedrol Aerosol nebs Cont Broad spectrum Abx Supplement 02 BIPAP prn Lasix 40 mg daily KCL 20 meq daily Stable to Tr to floor from pulm standpoint CXR in Damián Haley MD Jan 21, 2017 15:36
[2017-01-22] VITALS (7 sets, daily range): BP systolic 152–171; BP diastolic 71–85; PULSE 53–97; RESP 18–22; TEMP 97.7–99.2; O2SAT 93–100
[2017-01-22] MEDS: HEPARIN SODIUM - SQ 10,000 UNITS/ML VIAL SQ SCH ×3 (02:00→18:00)
[2017-01-22] MEDS: VANCOMYCIN INJ 1,750 MG in SODIUM CHLORID 0.9% 500 ML INJ 500 ML IV SCH (03:00)
[2017-01-22] MEDS: SODIUM CHLOR 0.45% 1000 ML INJ 1,000 ML IV SCH (03:15)
[2017-01-22] MEDS: CHLORHEXIDINE GLUCONATE 2 % 1 PACK (2 CLOTHS) TOP SCH (04:00)
[2017-01-22] MEDS: hydrALAZINE HCL 10 MG TAB PO SCH ×5 (05:45→23:01)
--- NOTE | 2017-01-22 06:29 | RADRPT ---
EXAM DATE/TIME: 01/22/2017 05:20 [facility] COMPARISON: CHEST SINGLE AP, January 19, 2017, 3:58. INDICATIONS : Shortness of breath. MEDICAL HISTORY : None. SURGICAL HISTORY : None. ENCOUNTER: Subsequent ACUITY: 1 week PAIN SCORE: Non-responsive. LOCATION: Bilateral chest FINDINGS: Heart size enlarged. Large presumed hiatal hiatal hernia. Mild basal airspace disease. No pneumothora x or significant effusion. CONCLUSION: 1. Mild airspace disease similar to prior exam. Large hiatal hernia. Bud Aranda MD on January 22, 2017 at 6:26 Board Certified Radiologist. This report was verified electronically.
--- NOTE | 2017-01-22 08:18 | HHI.PR ---
Subjective Remarks Critical Are specialist Notes: Young female in her 60s was brought in by ambulance from home for evaluation of shortness of breath. Patient had been complaining of shortness of breath since yesterday which has been gradually worsening. She has had a cough productive of greenish sputum. 911 was was called by the patient's significant other. EMS noted patient's O2 saturation to be 40-50% on room air and she was in obvious distress with a respiratory rate in the 40s. She was started on CPAP. Upon arrival to the emergency department she was intubated by ER attending. Subjective: 01/16: Contacted poison control this morning regarding inhalation injury. Discussed with , futures trader, presentation of the patient after discussion with daughter. The possibilities of concentrated form of inhaled substance places the patient has a significant impact for highly porous effect which could've subsequently caused the pulmonary edema. Toxic fumes involving chrome, chromium, cadmium possible colbalt can cause lung destruction in this setting since the patient was not wearing respiratory equipment at the time. Of note greenish mucoid material noted upon intubation in the ED, there could be a secondary infectious risk process encouraged to current continue antibiotics. Poison control will continue following the patient's case. Recommendations were supportive care continue vigilance, to see if it reverses which may take days or weeks, and consideration of ECMO if respiratory decompensation continues to occur. Pulmonology consult has been initiated appreciate recommendations. 01/17: Tmax 99.6. The patient was weaned completely off of Versed infusion last night. The patient more alert this a.m., still not following commands. WBC count is trending down the patient continues on triple antibiotic therapy. Plan for CPAP trials today. Obtained MSDS form regarding patient was exposed to nitric oxide fumes and dissolved "pot metal" containing zinc, copper, tin, magnesium, aluminum, Iron, and cadmium. 01/18: The patient required increasing oxygen requirements during the last evening, however subsequently throughout the day today she has been maintained on 4 L nasal cannula without dyspnea and maintain an O2 saturation 95%. We'll continue to attempt to wean nasal cannula oxygen. The patient now tolerating a by mouth diet and physical therapy has been instituted. Patient creatinine kinase continues to be elevated will continue IV fluids for now. Leukocytosis is resolving, as well as thrombocytopenia platelet count is elevated to 127 today. Hospitalist Notes 01/19 Patient stable in her bedroom, clear lungs continue using Nasal cannula. at 4 L/min. her in room discussed with nurse, improving condition she has Valdivia cath in place, will need to be removed as soon as not receiving Furosemide IV, will wait final recommendations by he Primary energy efficiency specialist Doctor Robert 01/20 Seen in her bedroom she had chest pain yesterday discussed with patient in the room her and her Daughter also other two relatives present, continue with moderate respiratory insufficiency, Pulmonary following, on IV Solu-Medrol, Bronchodilator, Mucolytic, Lasix to 40 mg daily and Potassium replacement. 01/21 Stable in her bedroom tolerating diet, also oxygen 2 to 4 L/min and maintain her oxygen Saturation in low 90s, will remove Valdivia cath and transfer patient out of ICU her lungs are clear, her Daughter and another two three relatives in the room. no new issues, discussed with nurse Miss Cox 01/22 Seen in her bedroom in the presence of her Daughter and , nurse Present Miss Terrell, no new issues, read the new CXR improving condition removed IV antibiotics started on by mouth Bactrim and following, titrated IV steroids, encourage activity. Objective Vital Signs Date Time Temp Pulse Resp B/P Pulse Ox O2 Delivery O2 Flow Rate FiO2 01/22/17 04:00 97.9 70 18 160/71 95 01/22/17 00:00 98.0 64 18 152/85 98 01/21/17 20:00 98.0 76 18 161/78 98 01/21/17 16:30 98.6 75 20 138/88 95 01/21/17 16:00 82 01/21/17 16:00 98.0 69 22 122/81 93 01/21/17 14:00 70 01/21/17 12:00 97.8 69 22 125/83 93 01/21/17 12:00 70 01/21/17 10:00 70 01/21/17 09:11 94 Nasal Cannula 2.00 I/O 01/21/17 01/21/17 01/21/17 01/22/17 01/22/17 01/22/17 07:00 15:00 23:00 07:00 15:00 23:00 Intake Total 1007 ml 1305 ml 3165 ml 1657 ml Output Total 1800 ml 2800 ml 4300 ml Balance -793 ml -1495 ml -1135 ml 1657 ml Intake Oral 200 ml 480 ml 2340 ml 360 ml IV Total 807 ml 825 ml 825 ml 1297 ml Output Urine Total 1800 ml 2800 ml 4300 ml # Voids 1 6 # Bowel Movements 2 2 2 3 Result Diagram: 01/19/17 0509 01/21/17 0439 Imaging Last Impressions Chest X-Ray 01/22/17 0600 Signed Impressions: Service Date/Time: Sunday, January 22, 2017 05:20 - CONCLUSION: 1. Mild airspace disease similar to prior exam. Large hiatal hernia. Bud Aranda MD Procedures No procedures performed. Other Results Laboratory Tests Test 01/19/17 01/19/17 01/20/17 01/20/17 05:09 22:30 04:17 13:55 White Blood Count 12.0 TH/MM3 Red Blood Count 4.30 MIL/MM3 Hemoglobin 13.1 GM/DL Hematocrit 38.3 % Mean Corpuscular Volume 89.2 FL Mean Corpuscular Hemoglobin 30.4 PG Mean Corpuscular Hemoglobin 34.1 % Concent Red Cell Distribution Width 13.4 % Platelet Count 153 TH/MM3 Mean Platelet Volume 9.6 FL Phosphorus Level 3.6 MG/DL Magnesium Level 2.4 MG/DL Vancomycin Level Trough 10.6 MCG/ML Sodium Level 139 MEQ/L Potassium Level 4.4 MEQ/L Chloride Level 102 MEQ/L Carbon Dioxide Level 30.5 MEQ/L Anion Gap 7 MEQ/L Blood Urea Nitrogen 23 MG/DL Random Glucose 137 MG/DL Calcium Level 8.5 MG/DL Total Creatine Kinase 214 U/L Creatine Kinase MB 1.9 NG/ML Creatine Kinase MB % 0.9 % Troponin I LESS THAN 0.02 NG/ML Test 01/21/17 04:39 Creatinine 0.77 MG/DL Estimat Glomerular Filtration 75 ML/MIN Rate Objective Remarks GENERAL: Obese Patient with Mild Respiratory Distress. SKIN: Warm and dry. HEAD: Atraumatic. Normocephalic. EYES: Pupils equal and round. No scleral icterus. No injection or drainage. ENT: No nasal bleeding or discharge. Mucous membranes pink and moist. Currently nasal cannula at 4 L/m NECK: Trachea midline. No JVD. CARDIOVASCULAR: Normal rate, regular rhythm. RESPIRATORY: Clear to auscultations bilateral no wheezing or crackles. GASTROINTESTINAL: Abdomen soft, non-tender, nondistended. No guarding. MUSCULOSKELETAL: Extremities without clubbing, cyanosis, or edema. No obvious deformities. NEUROLOGICAL: Awake and alert. Movement of extremities 4 not following commands Medications and IVs Current Medications Medications (Trade) Dose Ordered Sig/Kari Route Start Time Stop Time Status Last Admin (NS 1000 ml Inj) 1,000 ml @ 0 mls/hr Q0M IV 01/14/17 09:09 01/18/17 06:06 (NS Flush) 2 ml UNSCH PRN IV FLUSH 01/14/17 09:15 01/21/17 20:24 (NS Flush) 2 ml BID IV FLUSH 01/14/17 21:00 01/21/17 20:24 (Tylenol) 650 mg Q6H PRN PO 01/14/17 09:15 01/20/17 18:58 (Morphine Inj) 2 mg Q2H PRN IV 01/14/17 09:15 01/20/17 21:58 (Pepcid Inj) 20 mg Q12HR IV PUSH 01/14/17 21:00 01/21/17 20:24 (Tears Naturale Opth Soln) 1 drop TID EACH EYE 01/14/17 13:00 01/21/17 17:39 (Zofran Inj) 4 mg Q6H PRN IV 01/14/17 09:15 (Reglan Inj) 10 mg Q6H PRN IV 01/14/17 09:15 (Celeste-Colace) 2 tab BID GT 01/14/17 21:00 01/21/17 08:44 (Heparin Inj) 5,000 units Q8H SQ 01/14/17 10:00 01/22/17 02:00 Miscellaneous Information 1 Q361D XX 01/14/17 09:15 (Chlorhexidine 2% Cloth) Taper DAILY@04 TOP 01/15/17 04:00 01/11/18 03:59 01/20/17 04:00 Chlorhexidine Gluconate 3 pack 3 pack UNSCH PRN TOP 01/14/17 09:15 (Zithromax Inj/ NS 250 ml Inj) 250 ml @ 250 mls/hr Q24H IV 01/15/17 09:00 01/21/17 08:44 (SoluMEDROL INJ) 40 mg Q12H IV 01/14/17 10:00 01/21/17 20:24 (Nutrisource Fiber Powder) 1 pack TID G-TUBE 01/14/17 13:00 01/21/17 08:44 (Beneprotein Powder) 2 pack TID G-TUBE 01/15/17 13:00 01/17/17 16:38 (Apresoline Inj) 20 mg Q2H PRN IVS 01/17/17 03:45 01/19/17 06:06 Hydralazine HCl 10 mg 10 mg Q6HR PO 01/17/17 18:00 01/22/17 05:45 (1/2 NS 1000 ml Inj) 1,000 ml @ 100 mls/hr Q10H IV 01/18/17 19:15 01/22/17 03:15 (Lasix Inj) 40 mg DAILY IV PUSH 01/20/17 09:00 01/21/17 08:44 Potassium Chloride 20 meq 20 meq DAILY PO 01/20/17 09:00 01/21/17 08:44 (Vancomycin Inj/ NS 500 ml Inj) 517.5 ml @ 258.75 mls/ hr Q18H IV 01/20/17 15:00 01/22/17 03:00 Miscellaneous Information SPECIFIC LAB TO BE SAM... ONCE ONCE XX 01/22/17 20:45 01/22/17 20:46 (Vancomycin Consult Pharmacy) 0 ml @ 0 mls/hr UNSCH OTHER 01/21/17 10:00 A/P Problem List: (1) Malignant hypertension ICD Code: I10 (2) Sepsis ICD Code: A41.9 (3) Pulmonary edema ICD Code: J81.1 (4) Respiratory failure ICD Code: J96.90 (5) Pneumonia ICD Code: J18.9 (6) Elevated troponin I level ICD Code: R74.8 Assessment and Plan 1. VDRF Improved status post Acute inhalation toxicity Nitric Acid, with secondary Pulmonary Edema secondary to inhalational injury, Pneumonia Community acquired, was on Mechanical Ventilation, Broad spectrum antibiotic Vancomycin,Azithromycin and Zosyn, Lasix, CXR Pulmonary edema resolving. continue Bronchodilator, Mucolytic and Incentive spirometry. Steroids. Continue Oxygen, BiPAP PRN. energy efficiency specialist following. Poison control contacted 01/16 recommended supportive care. if deterioration consider ECMO Blood culture negative in three days, transfer to Med Surg, No BSI, continue Telemetry by now Yesterday discontinued Zosyn, today discontinued Vancomycin, and Azithromycin and started on Bactrim. titrated steroids to 30 mg BID 2. CAP on Broad spectrum antibiotics. following blood cultures negative in three days, but sputum culture growing MRSA was on Vancomycin and now switch to by mouth Bactrim and following. 3. Troponin Leak Probably due to Hypoxemia. recommended Cardiology consult if EKG changes, stable no chest pain, Troponin level negative. 4. Hypertension to continue Home medicines, Hydralazine as needed 5. Malnutrition, Dietitian following. 6. Obesity strongly recommended diet and exercise as outpatient. Discontinued Vancomycin Discontinue Azithromycin Titrate down Solu-Medrol Encourage activity. Seen in the presence of her Daughter and . Nurse Miss Terrell present DVT GI prophylaxis - Subcutaneous heparin and Pepcid Discharge Planning Expected for tomorrow. Problem Qualifiers (1) Sepsis: Qualified Code: A41.9 - Sepsis, due to unspecified organism (2) Pulmonary edema: Qualified Code: J81.0 - Acute pulmonary edema (3) Respiratory failure: Qualified Code: J96.01 - Acute respiratory failure with hypoxia and hypercapnia (4) Pneumonia: Qualified Code: J18.9 - Pneumonia of both lungs due to infectious organism, unspecified part of lung Ceasar Dudley MD Jan 22, 2017 08:18
[2017-01-22] MEDS: NUTRISOURCE FIBER POWDER 1 PACK G-TUBE SCH ×3 (08:44→18:00)
[2017-01-22] MEDS: DOCUSATE SODIUM 50 MG/SENNA 8.6 MG TAB GT SCH ×2 (08:44→21:00)
[2017-01-22] MEDS: AZITHROMYCIN INJ 500 MG in SODIUM CHLOR 0.9% 250 ML INJ 250 ML IV SCH (08:44)
[2017-01-22] MEDS: ARTIFICIAL TEARS OPTH SOLN 15 ML BTL EACH EYE SCH ×3 (08:45→18:00)
[2017-01-22] MEDS: BENEPROTEIN POWDER 1 PACK G-TUBE SCH ×3 (08:45→18:00)
[2017-01-22] MEDS: FUROSEMIDE 40 MG/4 ML VIAL IV PUSH SCH (08:45)
[2017-01-22] MEDS: SODIUM CHLORIDE 0.9% FLUSH 5 ML FLUSH IV FLUSH SCH ×2 (08:45→23:02)
[2017-01-22] MEDS: FAMOTIDINE 20 MG/2 ML VIAL IV PUSH SCH ×2 (09:00→23:01)
[2017-01-22] MEDS: POTASSIUM CHLORIDE 20 MEQ CONTROLLED RELEASE TAB PO SCH (09:00)
[2017-01-22 13:12] LABS: AUTOMATED NEUTROPHIL # 11.9 TH/MM3 (1.8-7.7); BASOPHIL % 0.1 % (0.0-2.0); EOSINOPHIL # 0.1 TH/MM3 (0-0.4); EOSINOPHIL % 0.5 % (0.0-4.0); HEMATOCRIT 36.2 % (35.0-46.0); LYMPHOCYTE # 0.8 TH/MM3 (1.0-4.8); MEAN CELL VOLUME 89.4 FL (80.0-100.0); MEAN CORPUSCULAR HEMOGLOBIN 30.4 PG (27.0-34.0); MONO % 6.6 % (0.0-8.0); NEUT % 86.8 % (16.0-70.0); PLATELET COUNT 174 TH/MM3 (150-450); RED BLOOD COUNT 4.05 MIL/MM3 (4.00-5.30); RED CELL DISTRIBUTION WIDTH 13.2 % (11.6-17.2); WHITE BLOOD COUNT 13.8 TH/MM3 (4.0-11.0)
[2017-01-22 13:16] LABS: HEMO FLAGS AUTO DIFF
[2017-01-22 13:35] LABS: BICARBONATE 31.3 MEQ/L (21.0-32.0); MAGNESIUM 2.2 MG/DL (1.5-2.5); POTASSIUM 4.3 MEQ/L (3.5-5.1)
[2017-01-22 13:41] LABS: BANDS 5 % (0-6); METAMYELOCYTES 3 % (0-1); MYELOCYTES 1 % (0-0); NEUTROPHIL # MANUAL DIFF 12.4 TH/MM3 (1.8-7.7); POLYS (SEG NEUTROPHILS) 81 % (16-70); WBC DIFF SAMPLE 100
[2017-01-22 13:42] LABS: PLATELET ESTIMATE SMEAR LOW (NORMAL); PLATELET MORPHOLOGY NORMAL (NORMAL); SCAN/DIFF FINAL DIFF MANUAL
--- NOTE | 2017-01-22 17:01 | HHI.PR ---
Subjective Remarks 66 YOWF with Acute inhalant lung injury, RF Extubated01/19 Alert, awake Tolerates PO Weaned off 02 CXR mild hazy infilt Objective Vital Signs Vital Signs Date Time Temp Pulse Resp B/P Pulse Ox O2 Delivery O2 Flow Rate FiO2 01/22/17 16:00 99.2 76 20 158/77 93 01/22/17 12:00 98.5 67 20 161/78 96 01/22/17 08:00 97.7 67 20 154/73 100 01/22/17 08:00 53 01/22/17 04:00 97.9 70 18 160/71 95 01/22/17 00:00 98.0 64 18 152/85 98 01/21/17 20:00 98.0 76 18 161/78 98 I/O 01/21/17 01/21/17 01/21/17 01/22/17 01/22/17 01/22/17 07:00 15:00 23:00 07:00 15:00 23:00 Intake Total 1007 ml 1305 ml 3165 ml 1657 ml 960 ml Output Total 1800 ml 2800 ml 4300 ml Balance -793 ml -1495 ml -1135 ml 1657 ml 960 ml Intake Oral 200 ml 480 ml 2340 ml 360 ml 960 ml IV Total 807 ml 825 ml 825 ml 1297 ml Output Urine Total 1800 ml 2800 ml 4300 ml # Voids 1 6 3 # Bowel Movements 2 2 2 3 1 Result Diagram: 01/22/17 1220 01/22/17 1220 Objective Remarks GENERAL: WBWN WF, sob SKIN: Warm and dry. HEAD: Normocephalic. EYES: No scleral icterus. No injection or drainage. NECK: Supple, trachea midline. No JVD or lymphadenopathy. CARDIOVASCULAR: Regular rate and rhythm without murmurs, gallops, or rubs. RESPIRATORY: Breath sounds equal bilaterally. No accessory muscle use. Bilat coarse crackles GASTROINTESTINAL: Abdomen soft, non-tender, nondistended. MUSCULOSKELETAL: No cyanosis, or edema. BACK: Nontender without obvious deformity. No CVA tenderness. A/P Assessment and Plan Resp failure, s/p extubation Pulm odema lung infilt Acute noxious inhalant lung injury PLAN: decrease Solumedrol Will change to po steroids tommorrow. Aerosol nebs Cont Broad spectrum Abx Supplement 02 BIPAP prn Lasix 40 mg daily KCL 20 meq daily Damián Jones MD Jan 22, 2017 17:01
[2017-01-22] MEDS ORDERED: PHARMACY ORDERED LAB XX ONE (20:45)
[2017-01-22] MEDS: SULFAMETHOXAZOLE-TRIMETHOPRIM DS 800-160 MG TAB PO SCH (23:01)
[2017-01-22] MEDS: MORPHINE SULFATE 4 MG/ML INJ IV PRN (23:01)
[2017-01-22] MEDS: methylPREDNISolone SOD SUCC 40 MG/1 ML VIAL IV SCH (23:02)
[2017-01-23] VITALS (9 sets, daily range): BP systolic 154–187; BP diastolic 72–87; PULSE 39–90; RESP 16–20; TEMP 97.3–98.5; O2SAT 92–95
[2017-01-23] MEDS: HEPARIN SODIUM - SQ 10,000 UNITS/ML VIAL SQ SCH ×3 (02:42→17:33)
[2017-01-23] MEDS: CHLORHEXIDINE GLUCONATE 2 % 1 PACK (2 CLOTHS) TOP SCH (02:42)
[2017-01-23] MEDS: hydrALAZINE HCL 10 MG TAB PO SCH ×3 (05:48→17:33)
--- NOTE | 2017-01-23 08:16 | HHI.PR ---
Subjective Remarks Critical Are specialist Notes: Young female in her 60s was brought in by ambulance from home for evaluation of shortness of breath. Patient had been complaining of shortness of breath since yesterday which has been gradually worsening. She has had a cough productive of greenish sputum. 911 was was called by the patient's significant other. EMS noted patient's O2 saturation to be 40-50% on room air and she was in obvious distress with a respiratory rate in the 40s. She was started on CPAP. Upon arrival to the emergency department she was intubated by ER attending. Subjective: 01/16: Contacted poison control this morning regarding inhalation injury. Discussed with , garden implement mechanic, presentation of the patient after discussion with daughter. The possibilities of concentrated form of inhaled substance places the patient has a significant impact for highly porous effect which could've subsequently caused the pulmonary edema. Toxic fumes involving chrome, chromium, cadmium possible colbalt can cause lung destruction in this setting since the patient was not wearing respiratory equipment at the time. Of note greenish mucoid material noted upon intubation in the ED, there could be a secondary infectious risk process encouraged to current continue antibiotics. Poison control will continue following the patient's case. Recommendations were supportive care continue vigilance, to see if it reverses which may take days or weeks, and consideration of ECMO if respiratory decompensation continues to occur. Pulmonology consult has been initiated appreciate recommendations. 01/17: Tmax 99.6. The patient was weaned completely off of Versed infusion last night. The patient more alert this a.m., still not following commands. WBC count is trending down the patient continues on triple antibiotic therapy. Plan for CPAP trials today. Obtained MSDS form regarding patient was exposed to nitric oxide fumes and dissolved "pot metal" containing zinc, copper, tin, magnesium, aluminum, Iron, and cadmium. 01/18: The patient required increasing oxygen requirements during the last evening, however subsequently throughout the day today she has been maintained on 4 L nasal cannula without dyspnea and maintain an O2 saturation 95%. We'll continue to attempt to wean nasal cannula oxygen. The patient now tolerating a by mouth diet and physical therapy has been instituted. Patient creatinine kinase continues to be elevated will continue IV fluids for now. Leukocytosis is resolving, as well as thrombocytopenia platelet count is elevated to 127 today. Hospitalist Notes 01/19 Patient stable in her bedroom, clear lungs continue using Nasal cannula. at 4 L/min. her in room discussed with nurse, improving condition she has Valdivia cath in place, will need to be removed as soon as not receiving Furosemide IV, will wait final recommendations by he Primary social problems specialist Doctor Robert 01/20 Seen in her bedroom she had chest pain yesterday discussed with patient in the room her and her Daughter also other two relatives present, continue with moderate respiratory insufficiency, Pulmonary following, on IV Solu-Medrol, Bronchodilator, Mucolytic, Lasix to 40 mg daily and Potassium replacement. 01/21 Stable in her bedroom tolerating diet, also oxygen 2 to 4 L/min and maintain her oxygen Saturation in low 90s, will remove Valdivia cath and transfer patient out of ICU her lungs are clear, her Daughter and another two three relatives in the room. no new issues, discussed with nurse Miss Cox 01/22 Seen in her bedroom in the presence of her Daughter and , nurse Present Miss Terrell, no new issues, read the new CXR improving condition removed IV antibiotics started on by mouth Bactrim and following, titrated IV steroids, encourage activity. 01/23 Stable in her bedroom, discussed with nurse miss Chau the patient had some heart block, I asked for outdoor recreation specialist consult switch to by mouth Steroids, patient ready for discharge from medicine standpoint as soon as outdoor recreation specialist and Pulmonary clear her. Objective Vital Signs Date Time Temp Pulse Resp B/P Pulse Ox O2 Delivery O2 Flow Rate FiO2 01/23/17 07:15 156/77 01/23/17 07:06 39 01/23/17 04:00 98.2 60 18 171/81 94 01/23/17 04:00 Room Air 01/23/17 00:00 97.9 76 20 164/77 93 01/23/17 00:00 Room Air 01/22/17 20:34 94 01/22/17 20:02 Room Air 01/22/17 20:00 98.0 97 22 171/77 97 01/22/17 16:00 99.2 76 20 158/77 93 01/22/17 12:00 98.5 67 20 161/78 96 I/O 01/22/17 01/22/17 01/22/17 01/23/17 01/23/17 01/23/17 07:00 15:00 23:00 07:00 15:00 23:00 Intake Total 1657 ml 960 ml 240 ml 240 ml Balance 1657 ml 960 ml 240 ml 240 ml Intake Oral 360 ml 960 ml 240 ml 240 ml IV Total 1297 ml # Voids 6 3 3 2 # Bowel Movements 3 1 0 0 Result Diagram: 01/22/17 1220 01/23/17 0506 Imaging Last Impressions Chest X-Ray 01/22/17 0600 Signed Impressions: Service Date/Time: Sunday, January 22, 2017 05:20 - CONCLUSION: 1. Mild airspace disease similar to prior exam. Large hiatal hernia. Bud Aranda MD Procedures No procedures performed. Other Results Laboratory Tests Test 01/19/17 01/20/17 01/22/17 01/23/17 22:30 13:55 12:20 05:06 Vancomycin Level Trough 10.6 MCG/ML Total Creatine Kinase 214 U/L Creatine Kinase MB 1.9 NG/ML Creatine Kinase MB % 0.9 % Troponin I LESS THAN 0.02 NG/ML White Blood Count 13.8 TH/MM3 Red Blood Count 4.05 MIL/MM3 Hemoglobin 12.3 GM/DL Hematocrit 36.2 % Mean Corpuscular Volume 89.4 FL Mean Corpuscular Hemoglobin 30.4 PG Mean Corpuscular Hemoglobin 34.0 % Concent Red Cell Distribution Width 13.2 % Platelet Count 174 TH/MM3 Mean Platelet Volume 9.6 FL Neutrophils (%) (Auto) 86.8 % Lymphocytes (%) (Auto) 6.0 % Monocytes (%) (Auto) 6.6 % Eosinophils (%) (Auto) 0.5 % Basophils (%) (Auto) 0.1 % Neutrophils # (Auto) 11.9 TH/MM3 Lymphocytes # (Auto) 0.8 TH/MM3 Monocytes # (Auto) 0.9 TH/MM3 Eosinophils # (Auto) 0.1 TH/MM3 Basophils # (Auto) 0.0 TH/MM3 CBC Comment AUTO DIFF Differential Total Cells 100 Counted Neutrophils % (Manual) 81 % Band Neutrophils % 5 % Lymphocytes % 6 % Monocytes % 4 % Neutrophils # (Manual) 12.4 TH/MM3 Metamyelocytes 3 % Myelocytes 1 % Differential Comment FINAL DIFF MANUAL Platelet Estimate LOW Platelet Morphology Comment NORMAL Sodium Level 142 MEQ/L Potassium Level 4.3 MEQ/L Chloride Level 102 MEQ/L Carbon Dioxide Level 31.3 MEQ/L Anion Gap 9 MEQ/L Blood Urea Nitrogen 14 MG/DL Random Glucose 95 MG/DL Calcium Level 9.1 MG/DL Phosphorus Level 2.3 MG/DL Magnesium Level 2.2 MG/DL Creatinine 0.72 MG/DL Estimat Glomerular Filtration 82 ML/MIN Rate Objective Remarks GENERAL: Obese Patient with Mild Respiratory Distress. SKIN: Warm and dry. HEAD: Atraumatic. Normocephalic. EYES: Pupils equal and round. No scleral icterus. No injection or drainage. ENT: No nasal bleeding or discharge. Mucous membranes pink and moist. Currently nasal cannula at 4 L/m NECK: Trachea midline. No JVD. CARDIOVASCULAR: Normal rate, regular rhythm. RESPIRATORY: Clear to auscultations bilateral no wheezing or crackles. GASTROINTESTINAL: Abdomen soft, non-tender, nondistended. No guarding. MUSCULOSKELETAL: Extremities without clubbing, cyanosis, or edema. No obvious deformities. NEUROLOGICAL: Awake and alert. Movement of extremities 4 not following commands Medications and IVs Current Medications Medications (Trade) Dose Ordered Sig/Kari Route Start Time Stop Time Status Last Admin (NS 1000 ml Inj) 1,000 ml @ 0 mls/hr Q0M IV 01/14/17 09:09 01/18/17 06:06 (NS Flush) 2 ml UNSCH PRN IV FLUSH 01/14/17 09:15 01/21/17 20:24 (NS Flush) 2 ml BID IV FLUSH 01/14/17 21:00 01/22/17 23:02 (Tylenol) 650 mg Q6H PRN PO 01/14/17 09:15 01/20/17 18:58 (Morphine Inj) 2 mg Q2H PRN IV 01/14/17 09:15 01/22/17 23:01 (Pepcid Inj) 20 mg Q12HR IV PUSH 01/14/17 21:00 01/22/17 23:01 (Tears Naturale Opth Soln) 1 drop TID EACH EYE 01/14/17 13:00 01/22/17 18:00 (Zofran Inj) 4 mg Q6H PRN IV 01/14/17 09:15 (Reglan Inj) 10 mg Q6H PRN IV 01/14/17 09:15 (Celeste-Colace) 2 tab BID GT 01/14/17 21:00 01/21/17 08:44 (Heparin Inj) 5,000 units Q8H SQ 01/14/17 10:00 01/23/17 02:42 Miscellaneous Information 1 Q361D XX 01/14/17 09:15 (Chlorhexidine 2% Cloth) Taper DAILY@04 TOP 01/15/17 04:00 01/11/18 03:59 01/20/17 04:00 (Chlorhexidine 2% Cloth) 3 pack UNSCH PRN TOP 01/14/17 09:15 (Nutrisource Fiber Powder) 1 pack TID G-TUBE 01/14/17 13:00 01/21/17 08:44 (Beneprotein Powder) 2 pack TID G-TUBE 01/15/17 13:00 01/17/17 16:38 (Apresoline Inj) 20 mg Q2H PRN IVS 01/17/17 03:45 01/19/17 06:06 (Apresoline) 10 mg Q6HR PO 01/17/17 18:00 01/23/17 05:48 (Lasix Inj) 40 mg DAILY IV PUSH 01/20/17 09:00 01/22/17 08:45 (KCl) 20 meq DAILY PO 01/20/17 09:00 01/22/17 09:00 (Bactrim Ds 800-160 Mg) 1 tab Q12HR PO 01/22/17 21:00 01/22/17 23:01 (SoluMEDROL INJ) 30 mg Q12H IV 01/22/17 22:00 01/22/17 23:02 A/P Problem List: (1) Malignant hypertension ICD Code: I10 (2) Sepsis ICD Code: A41.9 (3) Pulmonary edema ICD Code: J81.1 (4) Respiratory failure ICD Code: J96.90 (5) Pneumonia ICD Code: J18.9 (6) Elevated troponin I level ICD Code: R74.8 Assessment and Plan 1. VDRF Improved status post Acute inhalation toxicity Nitric Acid, with secondary Pulmonary Edema secondary to inhalational injury, Pneumonia Community acquired, was on Mechanical Ventilation, Broad spectrum antibiotic Vancomycin,Azithromycin and Zosyn, Lasix, CXR Pulmonary edema resolving. continue Bronchodilator, Mucolytic and Incentive spirometry. Steroids. Continue Oxygen, BiPAP PRN. social problems specialist following. Poison control contacted 01/16 recommended supportive care. if deterioration consider ECMO Blood culture negative in three days, transfer to Med Surg, No BSI, continue Telemetry by now Yesterday discontinued Zosyn, today discontinued Vancomycin, and Azithromycin and started on Bactrim. Start Prednisone daily. 2. CAP on Broad spectrum antibiotics. following blood cultures negative in three days, but sputum culture growing MRSA was on Vancomycin and now switch to by mouth Bactrim and following. 3. Troponin Leak Probably due to Hypoxemia. recommended Cardiology consult if EKG changes, today had some heart block asked for outdoor recreation specialist patient totally asymptomatic. 4. Hypertension controlled. , Hydralazine as needed 5. Obesity strongly recommended diet and exercise as outpatient. Started on Prednisone 30 mg daily starting tomorrow. Encourage activity. Discussed with patient and nurse Miss Chau. DVT GI prophylaxis - Subcutaneous heparin and Pepcid Discharge Planning Expected for tomorrow. Problem Qualifiers (1) Sepsis: Qualified Code: A41.9 - Sepsis, due to unspecified organism (2) Pulmonary edema: Qualified Code: J81.0 - Acute pulmonary edema (3) Respiratory failure: Qualified Code: J96.01 - Acute respiratory failure with hypoxia and hypercapnia (4) Pneumonia: Qualified Code: J18.9 - Pneumonia of both lungs due to infectious organism, unspecified part of lung Ceasar Dudley MD Jan 23, 2017 08:16
[2017-01-23] MEDS: NUTRISOURCE FIBER POWDER 1 PACK G-TUBE SCH ×3 (09:00→17:33)
[2017-01-23] MEDS: DOCUSATE SODIUM 50 MG/SENNA 8.6 MG TAB GT SCH ×2 (09:00→21:00)
[2017-01-23] MEDS: ARTIFICIAL TEARS OPTH SOLN 15 ML BTL EACH EYE SCH ×3 (09:00→17:33)
[2017-01-23] MEDS: BENEPROTEIN POWDER 1 PACK G-TUBE SCH ×3 (09:00→17:33)
[2017-01-23] MEDS: SULFAMETHOXAZOLE-TRIMETHOPRIM DS 800-160 MG TAB PO SCH ×2 (10:18→22:20)
[2017-01-23] MEDS: FAMOTIDINE 20 MG/2 ML VIAL IV PUSH SCH ×2 (10:18→22:20)
[2017-01-23] MEDS: FUROSEMIDE 40 MG/4 ML VIAL IV PUSH SCH (10:18)
[2017-01-23] MEDS: MORPHINE SULFATE 4 MG/ML INJ IV PRN ×3 (10:19→22:20)
[2017-01-23] MEDS: POTASSIUM CHLORIDE 20 MEQ CONTROLLED RELEASE TAB PO SCH (10:19)
[2017-01-23] MEDS: methylPREDNISolone SOD SUCC 40 MG/1 ML VIAL IV SCH (10:19)
[2017-01-23] MEDS: SODIUM CHLORIDE 0.9% FLUSH 5 ML FLUSH IV FLUSH SCH ×2 (10:20→22:21)
--- NOTE | 2017-01-23 14:17 | EKG ---
Date Performed: 01/23/2017 Time Performed: 11:01:01 PTAGE: 66 years EKG: Sinus rhythm MODERATE ST DEPRESSION ABNORMAL ECG PREVIOUS TRACING : 01/20/2017 12.30 Compared to prior tracing no significant change DOCTOR: Glen Mendes Interpretating Date/Time 01/23/2017 14:16:04
--- NOTE | 2017-01-23 20:04 | HHI.PR ---
Subjective Remarks 66 YOWF with Acute inhalant lung injury, RF Extubated01/19 Alert, awake Tolerates PO Weaned off 02 Stable on RA Objective Vital Signs Vital Signs Date Time Temp Pulse Resp B/P Pulse Ox O2 Delivery O2 Flow Rate FiO2 01/23/17 16:00 98.5 90 20 187/87 95 01/23/17 12:00 97.3 76 20 166/77 92 01/23/17 11:31 63 01/23/17 08:00 97.8 76 20 154/72 93 01/23/17 08:00 Room Air 01/23/17 07:15 156/77 01/23/17 07:06 39 01/23/17 04:00 98.2 60 18 171/81 94 01/23/17 04:00 Room Air 01/23/17 00:00 97.9 76 20 164/77 93 01/23/17 00:00 Room Air 01/22/17 20:34 94 I/O 01/22/17 01/22/17 01/22/17 01/23/17 01/23/17 01/23/17 07:00 15:00 23:00 07:00 15:00 23:00 Intake Total 1657 ml 960 ml 240 ml 240 ml 600 ml Balance 1657 ml 960 ml 240 ml 240 ml 600 ml Intake Oral 360 ml 960 ml 240 ml 240 ml 600 ml IV Total 1297 ml # Voids 6 3 3 2 5 # Bowel Movements 3 1 0 0 2 Result Diagram: 01/22/17 1220 01/23/17 0506 Objective Remarks GENERAL: WBWN WF, sob SKIN: Warm and dry. HEAD: Normocephalic. EYES: No scleral icterus. No injection or drainage. NECK: Supple, trachea midline. No JVD or lymphadenopathy. CARDIOVASCULAR: Regular rate and rhythm without murmurs, gallops, or rubs. RESPIRATORY: Breath sounds equal bilaterally. No accessory muscle use. Bilat coarse crackles GASTROINTESTINAL: Abdomen soft, non-tender, nondistended. MUSCULOSKELETAL: No cyanosis, or edema. BACK: Nontender without obvious deformity. No CVA tenderness. A/P Assessment and Plan Resp failure, s/p extubation Pulm odema lung infilt Acute noxious inhalant lung injury PLAN: PO Steroids PFT Aerosol nebs Cont Broad spectrum Abx Lasix 40 mg daily KCL 20 meq daily Aneja,Damián Dev MD Jan 23, 2017 20:04
[2017-01-24] VITALS: BP 142/67; PULSE 65; RESP 16; TEMP 98; O2SAT 94
[2017-01-24] MEDS: hydrALAZINE HCL 10 MG TAB PO SCH ×2 (00:04→05:27)
[2017-01-24] MEDS: HEPARIN SODIUM - SQ 10,000 UNITS/ML VIAL SQ SCH ×2 (02:00→08:09)
[2017-01-24 04:00] VITALS: BP 137/70; PULSE 57; RESP 16; TEMP 97.8; O2SAT 95
--- NOTE | 2017-01-24 07:54 | HHI.PR ---
Subjective Remarks Critical Are specialist Notes: Young female in her 60s was brought in by ambulance from home for evaluation of shortness of breath. Patient had been complaining of shortness of breath since yesterday which has been gradually worsening. She has had a cough productive of greenish sputum. 911 was was called by the patient's significant other. EMS noted patient's O2 saturation to be 40-50% on room air and she was in obvious distress with a respiratory rate in the 40s. She was started on CPAP. Upon arrival to the emergency department she was intubated by ER attending. Subjective: 01/16: Contacted poison control this morning regarding inhalation injury. Discussed with , summons server, presentation of the patient after discussion with daughter. The possibilities of concentrated form of inhaled substance places the patient has a significant impact for highly porous effect which could've subsequently caused the pulmonary edema. Toxic fumes involving chrome, chromium, cadmium possible colbalt can cause lung destruction in this setting since the patient was not wearing respiratory equipment at the time. Of note greenish mucoid material noted upon intubation in the ED, there could be a secondary infectious risk process encouraged to current continue antibiotics. Poison control will continue following the patient's case. Recommendations were supportive care continue vigilance, to see if it reverses which may take days or weeks, and consideration of ECMO if respiratory decompensation continues to occur. Pulmonology consult has been initiated appreciate recommendations. 01/17: Tmax 99.6. The patient was weaned completely off of Versed infusion last night. The patient more alert this a.m., still not following commands. WBC count is trending down the patient continues on triple antibiotic therapy. Plan for CPAP trials today. Obtained MSDS form regarding patient was exposed to nitric oxide fumes and dissolved "pot metal" containing zinc, copper, tin, magnesium, aluminum, Iron, and cadmium. 01/18: The patient required increasing oxygen requirements during the last evening, however subsequently throughout the day today she has been maintained on 4 L nasal cannula without dyspnea and maintain an O2 saturation 95%. We'll continue to attempt to wean nasal cannula oxygen. The patient now tolerating a by mouth diet and physical therapy has been instituted. Patient creatinine kinase continues to be elevated will continue IV fluids for now. Leukocytosis is resolving, as well as thrombocytopenia platelet count is elevated to 127 today. Hospitalist Notes 01/19 Patient stable in her bedroom, clear lungs continue using Nasal cannula. at 4 L/min. her in room discussed with nurse, improving condition she has Valdivia cath in place, will need to be removed as soon as not receiving Furosemide IV, will wait final recommendations by he Primary reception specialist Doctor Robert 01/20 Seen in her bedroom she had chest pain yesterday discussed with patient in the room her and her Daughter also other two relatives present, continue with moderate respiratory insufficiency, Pulmonary following, on IV Solu-Medrol, Bronchodilator, Mucolytic, Lasix to 40 mg daily and Potassium replacement. 01/21 Stable in her bedroom tolerating diet, also oxygen 2 to 4 L/min and maintain her oxygen Saturation in low 90s, will remove Valdivia cath and transfer patient out of ICU her lungs are clear, her Daughter and another two three relatives in the room. no new issues, discussed with nurse Miss Cox 01/22 Seen in her bedroom in the presence of her Daughter and , nurse Present Miss Terrell, no new issues, read the new CXR improving condition removed IV antibiotics started on by mouth Bactrim and following, titrated IV steroids, encourage activity. 01/23 Stable in her bedroom, discussed with nurse miss Chau the patient had some heart block, I asked for child life specialist consult switch to by mouth Steroids, patient ready for discharge from medicine standpoint as soon as child life specialist and Pulmonary clear her. 01/24 Patient stable seen in her bedroom in the presence of her and discussed with reception specialist Doctor Robert no nausea, vomit or diarrhea. at room air. Objective Vital Signs Date Time Temp Pulse Resp B/P Pulse Ox O2 Delivery O2 Flow Rate FiO2 01/24/17 04:00 Room Air 01/24/17 04:00 97.8 57 16 137/70 95 01/24/17 00:00 98.0 65 16 142/67 94 01/24/17 00:00 Room Air 01/23/17 20:00 Room Air 01/23/17 20:00 81 01/23/17 20:00 98.1 84 16 162/74 95 01/23/17 16:00 98.5 90 20 187/87 95 01/23/17 12:00 97.3 76 20 166/77 92 01/23/17 11:31 63 01/23/17 08:00 97.8 76 20 154/72 93 01/23/17 08:00 Room Air I/O 01/23/17 01/23/17 01/23/17 01/24/17 01/24/17 01/24/17 07:00 15:00 23:00 07:00 15:00 23:00 Intake Total 240 ml 600 ml 240 ml 240 ml Balance 240 ml 600 ml 240 ml 240 ml Intake Oral 240 ml 600 ml 240 ml 240 ml # Voids 2 5 1 1 # Bowel Movements 0 2 0 1 Result Diagram: 01/22/17 1220 01/23/17 0506 Imaging Last Impressions Chest X-Ray 01/22/17 0600 Signed Impressions: Service Date/Time: Sunday, January 22, 2017 05:20 - CONCLUSION: 1. Mild airspace disease similar to prior exam. Large hiatal hernia. Bud Aranda MD Procedures No procedures performed. Other Results Laboratory Tests Test 01/20/17 01/22/17 01/23/17 13:55 12:20 05:06 Total Creatine Kinase 214 U/L Creatine Kinase MB 1.9 NG/ML Creatine Kinase MB % 0.9 % Troponin I LESS THAN 0.02 NG/ML White Blood Count 13.8 TH/MM3 Red Blood Count 4.05 MIL/MM3 Hemoglobin 12.3 GM/DL Hematocrit 36.2 % Mean Corpuscular Volume 89.4 FL Mean Corpuscular Hemoglobin 30.4 PG Mean Corpuscular Hemoglobin 34.0 % Concent Red Cell Distribution Width 13.2 % Platelet Count 174 TH/MM3 Mean Platelet Volume 9.6 FL Neutrophils (%) (Auto) 86.8 % Lymphocytes (%) (Auto) 6.0 % Monocytes (%) (Auto) 6.6 % Eosinophils (%) (Auto) 0.5 % Basophils (%) (Auto) 0.1 % Neutrophils # (Auto) 11.9 TH/MM3 Lymphocytes # (Auto) 0.8 TH/MM3 Monocytes # (Auto) 0.9 TH/MM3 Eosinophils # (Auto) 0.1 TH/MM3 Basophils # (Auto) 0.0 TH/MM3 CBC Comment AUTO DIFF Differential Total Cells 100 Counted Neutrophils % (Manual) 81 % Band Neutrophils % 5 % Lymphocytes % 6 % Monocytes % 4 % Neutrophils # (Manual) 12.4 TH/MM3 Metamyelocytes 3 % Myelocytes 1 % Differential Comment FINAL DIFF MANUAL Platelet Estimate LOW Platelet Morphology Comment NORMAL Sodium Level 142 MEQ/L Potassium Level 4.3 MEQ/L Chloride Level 102 MEQ/L Carbon Dioxide Level 31.3 MEQ/L Anion Gap 9 MEQ/L Blood Urea Nitrogen 14 MG/DL Random Glucose 95 MG/DL Calcium Level 9.1 MG/DL Phosphorus Level 2.3 MG/DL Magnesium Level 2.2 MG/DL Creatinine 0.72 MG/DL Estimat Glomerular Filtration 82 ML/MIN Rate Objective Remarks GENERAL: Obese Patient with Mild Respiratory Distress. SKIN: Warm and dry. HEAD: Atraumatic. Normocephalic. EYES: Pupils equal and round. No scleral icterus. No injection or drainage. ENT: No nasal bleeding or discharge. Mucous membranes pink and moist. Currently nasal cannula at 4 L/m NECK: Trachea midline. No JVD. CARDIOVASCULAR: Normal rate, regular rhythm. RESPIRATORY: Clear to auscultations bilateral no wheezing or crackles. GASTROINTESTINAL: Abdomen soft, non-tender, nondistended. No guarding. MUSCULOSKELETAL: Extremities without clubbing, cyanosis, or edema. No obvious deformities. NEUROLOGICAL: Awake and alert. Movement of extremities 4 not following commands Medications and IVs Current Medications Medications (Trade) Dose Ordered Sig/Kari Route Start Time Stop Time Status Last Admin (NS 1000 ml Inj) 1,000 ml @ 0 mls/hr Q0M IV 01/14/17 09:09 01/18/17 06:06 (NS Flush) 2 ml UNSCH PRN IV FLUSH 01/14/17 09:15 01/21/17 20:24 (NS Flush) 2 ml BID IV FLUSH 01/14/17 21:00 01/23/17 22:21 (Tylenol) 650 mg Q6H PRN PO 01/14/17 09:15 01/20/17 18:58 (Morphine Inj) 2 mg Q2H PRN IV 01/14/17 09:15 01/23/17 22:20 (Pepcid Inj) 20 mg Q12HR IV PUSH 01/14/17 21:00 01/23/17 22:20 (Tears Naturale Opth Soln) 1 drop TID EACH EYE 01/14/17 13:00 01/22/17 18:00 (Zofran Inj) 4 mg Q6H PRN IV 01/14/17 09:15 (Reglan Inj) 10 mg Q6H PRN IV 01/14/17 09:15 (Celeste-Colace) 2 tab BID GT 01/14/17 21:00 01/21/17 08:44 (Heparin Inj) 5,000 units Q8H SQ 01/14/17 10:00 01/24/17 02:00 (Nutrisource Fiber Powder) 1 pack TID G-TUBE 01/14/17 13:00 01/21/17 08:44 (Beneprotein Powder) 2 pack TID G-TUBE 01/15/17 13:00 01/17/17 16:38 (Apresoline Inj) 20 mg Q2H PRN IVS 01/17/17 03:45 01/19/17 06:06 (Apresoline) 10 mg Q6HR PO 01/17/17 18:00 01/24/17 05:27 (Lasix Inj) 40 mg DAILY IV PUSH 01/20/17 09:00 01/23/17 10:18 (KCl) 20 meq DAILY PO 01/20/17 09:00 01/23/17 10:19 (Bactrim Ds 800-160 Mg) 1 tab Q12HR PO 01/22/17 21:00 01/23/17 22:20 (Deltasone) 30 mg DAILY PO 01/24/17 09:00 A/P Problem List: (1) Malignant hypertension ICD Code: I10 (2) Sepsis ICD Code: A41.9 (3) Pulmonary edema ICD Code: J81.1 (4) Respiratory failure ICD Code: J96.90 (5) Pneumonia ICD Code: J18.9 (6) Elevated troponin I level ICD Code: R74.8 Assessment and Plan 1. VDRF Improved status post Acute inhalation toxicity Nitric Acid, with secondary Pulmonary Edema secondary to inhalational injury, Pneumonia Community acquired, was on Mechanical Ventilation, Broad spectrum antibiotic Vancomycin,Azithromycin and Zosyn, Lasix, CXR Pulmonary edema resolving. continue Bronchodilator, Mucolytic and Incentive spirometry. Steroids. Continue Oxygen, BiPAP PRN. reception specialist following. Poison control contacted 01/16 recommended supportive care. if deterioration consider ECMO Blood culture negative in three days, transfer to Med Surg, No BSI, continue Telemetry by now Yesterday discontinued Zosyn, today discontinued Vancomycin, and Azithromycin. continue Bactrim for seven days, and Titrate Prednisone for nine days. Discussed with reception specialist Doctor Robert and he asked the patient for discharge today and follow as outpatient possible to get PFTs today or as outpatient. 2. CAP on Broad spectrum antibiotics. following blood cultures negative in three days, but sputum culture growing MRSA was on Vancomycin and now switch to by mouth Bactrim that will continue as outpatient for seven days. 3. Troponin Leak Probably due to Hypoxemia. recommended Cardiology consult if EKG changes, today had some heart block asked for child life specialist patient totally asymptomatic. child life specialist will follow as outpatient gave okay for discharge today 4. Hypertension controlled. , Hydralazine as needed 5. Obesity strongly recommended diet and exercise as outpatient. Started on Prednisone 30 mg daily starting tomorrow. Encourage activity. Discussed with patient and nurse Miss Chau. DVT GI prophylaxis - Subcutaneous heparin and Pepcid Discharge Planning Discharge Today Problem Qualifiers (1) Sepsis: Qualified Code: A41.9 - Sepsis, due to unspecified organism (2) Pulmonary edema: Qualified Code: J81.0 - Acute pulmonary edema (3) Respiratory failure: Qualified Code: J96.01 - Acute respiratory failure with hypoxia and hypercapnia (4) Pneumonia: Qualified Code: J18.9 - Pneumonia of both lungs due to infectious organism, unspecified part of lung Ceasar Dudley MD Jan 24, 2017 07:54
[2017-01-24] MEDS: BENEPROTEIN POWDER 1 PACK G-TUBE SCH ×2 (08:04→12:34)
[2017-01-24] MEDS: DOCUSATE SODIUM 50 MG/SENNA 8.6 MG TAB GT SCH (08:04)
[2017-01-24] MEDS: NUTRISOURCE FIBER POWDER 1 PACK G-TUBE SCH ×2 (08:04→12:34)
[2017-01-24] MEDS: ARTIFICIAL TEARS OPTH SOLN 15 ML BTL EACH EYE SCH ×2 (08:04→12:34)
[2017-01-24 08:07] VITALS: BP 163/79; PULSE 60; RESP 20; TEMP 98.2; O2SAT 96
[2017-01-24] MEDS: SODIUM CHLORIDE 0.9% FLUSH 5 ML FLUSH IV FLUSH SCH (08:09)
[2017-01-24] MEDS: POTASSIUM CHLORIDE 20 MEQ CONTROLLED RELEASE TAB PO SCH (08:09)
[2017-01-24] MEDS: FUROSEMIDE 40 MG/4 ML VIAL IV PUSH SCH (08:09)
[2017-01-24] MEDS: FAMOTIDINE 20 MG/2 ML VIAL IV PUSH SCH (08:09)
[2017-01-24] MEDS: SULFAMETHOXAZOLE-TRIMETHOPRIM DS 800-160 MG TAB PO SCH (08:09)
[2017-01-24] MEDS ORDERED: predniSONE 10 MG TAB PO SCH (09:00)
--- NOTE | 2017-01-24 11:18 | HHI.PR ---
Subjective Remarks 66 YOWF with Acute inhalant lung injury, RF Extubated01/19 Alert, awake Tolerates PO Stable on RA Ambulates Anxious to go home. Objective Vital Signs Vital Signs Date Time Temp Pulse Resp B/P Pulse Ox O2 Delivery O2 Flow Rate FiO2 01/24/17 08:07 98.2 60 20 163/79 96 01/24/17 04:00 Room Air 01/24/17 04:00 97.8 57 16 137/70 95 01/24/17 00:00 98.0 65 16 142/67 94 01/24/17 00:00 Room Air 01/23/17 20:00 Room Air 01/23/17 20:00 81 01/23/17 20:00 98.1 84 16 162/74 95 01/23/17 16:00 98.5 90 20 187/87 95 01/23/17 12:00 97.3 76 20 166/77 92 01/23/17 11:31 63 I/O 01/23/17 01/23/17 01/23/17 01/24/17 01/24/17 01/24/17 07:00 15:00 23:00 07:00 15:00 23:00 Intake Total 240 ml 600 ml 240 ml 240 ml Balance 240 ml 600 ml 240 ml 240 ml Intake Oral 240 ml 600 ml 240 ml 240 ml # Voids 2 5 1 1 # Bowel Movements 0 2 0 1 Result Diagram: 01/22/17 1220 01/23/17 0506 Objective Remarks GENERAL: WBWN WF, sob SKIN: Warm and dry. HEAD: Normocephalic. EYES: No scleral icterus. No injection or drainage. NECK: Supple, trachea midline. No JVD or lymphadenopathy. CARDIOVASCULAR: Regular rate and rhythm without murmurs, gallops, or rubs. RESPIRATORY: Breath sounds equal bilaterally. No accessory muscle use. Bilat coarse crackles GASTROINTESTINAL: Abdomen soft, non-tender, nondistended. MUSCULOSKELETAL: No cyanosis, or edema. BACK: Nontender without obvious deformity. No CVA tenderness. A/P Assessment and Plan Resp failure, s/p extubation Pulm odema lung infilt Acute noxious inhalant lung injury PLAN: PO Steroids PFT Aerosol nebs PO BActrim Satble from pulm standpoint to dc Will FU in office Damián Jones MD Jan 24, 2017 11:18
[2017-01-24 12:09] VITALS: BP 160/76; PULSE 64; RESP 20; TEMP 98.4; O2SAT 96
[2017-01-24] MEDS ORDERED: PRED10 PO (12:38)
[2017-01-24] MEDS ORDERED: BACT800T5 PO (12:38)
[2017-01-24] MEDS ORDERED: SYMB160A INH (12:38)
--- NOTE | 2017-01-24 12:40 | HHI.DS ---
Discharge Summary Admission Date Jan 14, 2017 at 07:48 Discharge Date: Jan 24, 2017 Admitting Diagnosis respiratory failure, sepsis, pneumonia, malignant hypertension (1) Pulmonary edema ICD Code: J81.1 Diagnosis: Principal (2) Respiratory failure ICD Code: J96.90 Diagnosis: Principal (3) Pneumonia ICD Code: J18.9 Diagnosis: Principal (4) Elevated troponin I level ICD Code: R74.8 Diagnosis: Principal (5) Malignant hypertension ICD Code: I10 Diagnosis: Principal (6) Sepsis ICD Code: A41.9 Diagnosis: Principal Procedures Endotracheal Intubation and extubation Brief History - From Admission Young female in her 60s was brought in by ambulance from home for evaluation of shortness of breath. Patient had been complaining of shortness of breath since yesterday which has been gradually worsening. She has had a cough productive of greenish sputum. 911 was was called by the patient's significant other. EMS noted patient's O2 saturation to be 40-50% on room air and she was in obvious distress with a respiratory rate in the 40s. She was started on CPAP. Upon arrival to the emergency department she was intubated by ER attending. CBC/BMP: 01/22/17 1220 01/23/17 0506 Significant Findings Laboratory Tests Test 01/22/17 01/23/17 12:20 05:06 White Blood Count 13.8 TH/MM3 (4.0-11.0) Neutrophils (%) (Auto) 86.8 % (16.0-70.0) Lymphocytes (%) (Auto) 6.0 % (9.0-44.0) Neutrophils # (Auto) 11.9 TH/MM3 (1.8-7.7) Lymphocytes # (Auto) 0.8 TH/MM3 (1.0-4.8) Neutrophils % (Manual) 81 % (16-70) Lymphocytes % 6 % (9-44) Neutrophils # (Manual) 12.4 TH/MM3 (1.8-7.7) Metamyelocytes 3 % (0-1) Myelocytes 1 % (0-0) Platelet Estimate LOW (NORMAL) Phosphorus Level 2.3 MG/DL (2.5-4.9) Estimat Glomerular Filtration 82 ML/MIN (>89) Rate Imaging Last Impressions Chest X-Ray 01/22/17 0600 Signed Impressions: Service Date/Time: Sunday, January 22, 2017 05:20 - CONCLUSION: 1. Mild airspace disease similar to prior exam. Large hiatal hernia. Bud Aranda MD PE at Discharge GENERAL: Obese Patient with Mild Respiratory Distress. SKIN: Warm and dry. HEAD: Atraumatic. Normocephalic. EYES: Pupils equal and round. No scleral icterus. No injection or drainage. ENT: No nasal bleeding or discharge. Mucous membranes pink and moist. Currently nasal cannula at 4 L/m NECK: Trachea midline. No JVD. CARDIOVASCULAR: Normal rate, regular rhythm. RESPIRATORY: Clear to auscultations bilateral no wheezing or crackles. GASTROINTESTINAL: Abdomen soft, non-tender, nondistended. No guarding. MUSCULOSKELETAL: Extremities without clubbing, cyanosis, or edema. No obvious deformities. NEUROLOGICAL: Awake and alert. Movement of extremities 4 not following commands Hospital Course Critical Are specialist Notes: Young female in her 60s was brought in by ambulance from home for evaluation of shortness of breath. Patient had been complaining of shortness of breath since yesterday which has been gradually worsening. She has had a cough productive of greenish sputum. 911 was was called by the patient's significant other. EMS noted patient's O2 saturation to be 40-50% on room air and she was in obvious distress with a respiratory rate in the 40s. She was started on CPAP. Upon arrival to the emergency department she was intubated by ER attending. Subjective: 01/16: Contacted poison control this morning regarding inhalation injury. Discussed with , t rail turner, presentation of the patient after discussion with daughter. The possibilities of concentrated form of inhaled substance places the patient has a significant impact for highly porous effect which could've subsequently caused the pulmonary edema. Toxic fumes involving chrome, chromium, cadmium possible colbalt can cause lung destruction in this setting since the patient was not wearing respiratory equipment at the time. Of note greenish mucoid material noted upon intubation in the ED, there could be a secondary infectious risk process encouraged to current continue antibiotics. Poison control will continue following the patient's case. Recommendations were supportive care continue vigilance, to see if it reverses which may take days or weeks, and consideration of ECMO if respiratory decompensation continues to occur. Pulmonology consult has been initiated appreciate recommendations. 01/17: Tmax 99.6. The patient was weaned completely off of Versed infusion last night. The patient more alert this a.m., still not following commands. WBC count is trending down the patient continues on triple antibiotic therapy. Plan for CPAP trials today. Obtained MSDS form regarding patient was exposed to nitric oxide fumes and dissolved "pot metal" containing zinc, copper, tin, magnesium, aluminum, Iron, and cadmium. 01/18: The patient required increasing oxygen requirements during the last evening, however subsequently throughout the day today she has been maintained on 4 L nasal cannula without dyspnea and maintain an O2 saturation 95%. We'll continue to attempt to wean nasal cannula oxygen. The patient now tolerating a by mouth diet and physical therapy has been instituted. Patient creatinine kinase continues to be elevated will continue IV fluids for now. Leukocytosis is resolving, as well as thrombocytopenia platelet count is elevated to 127 today. Hospitalist Notes 01/19 Patient stable in her bedroom, clear lungs continue using Nasal cannula. at 4 L/min. her in room discussed with nurse, improving condition she has Valdivia cath in place, will need to be removed as soon as not receiving Furosemide IV, will wait final recommendations by he Primary icu specialist Doctor Robert 01/20 Seen in her bedroom she had chest pain yesterday discussed with patient in the room her and her Daughter also other two relatives present, continue with moderate respiratory insufficiency, Pulmonary following, on IV Solu-Medrol, Bronchodilator, Mucolytic, Lasix to 40 mg daily and Potassium replacement. 01/21 Stable in her bedroom tolerating diet, also oxygen 2 to 4 L/min and maintain her oxygen Saturation in low 90s, will remove Valdivia cath and transfer patient out of ICU her lungs are clear, her Daughter and another two three relatives in the room. no new issues, discussed with nurse Miss Cox 01/22 Seen in her bedroom in the presence of her Daughter and , nurse Present Miss Terrell, no new issues, read the new CXR improving condition removed IV antibiotics started on by mouth Bactrim and following, titrated IV steroids, encourage activity. 01/23 Stable in her bedroom, discussed with nurse miss Chau the patient had some heart block, I asked for specialist physicians consult switch to by mouth Steroids, patient ready for discharge from medicine standpoint as soon as specialist physicians and Pulmonary clear her. 01/24 Patient stable seen in her bedroom in the presence of her and discussed with icu specialist Doctor Robert no nausea, vomit or diarrhea. at room air. Assessment and Plan 1. VDRF Improved status post Acute inhalation toxicity Nitric Acid, with secondary Pulmonary Edema secondary to inhalational injury, Pneumonia Community acquired, was on Mechanical Ventilation, Broad spectrum antibiotic Vancomycin,Azithromycin and Zosyn, Lasix, CXR Pulmonary edema resolving. continue Bronchodilator, Mucolytic and Incentive spirometry. Steroids. Continue Oxygen, BiPAP PRN. icu specialist following. Poison control contacted 01/16 recommended supportive care. if deterioration consider ECMO Blood culture negative in three days, transfer to Med Surg, No BSI, continue Telemetry by now Yesterday discontinued Zosyn, today discontinued Vancomycin, and Azithromycin. continue Bactrim for seven days, and Titrate Prednisone for nine days. Discussed with icu specialist Doctor Robert and he asked the patient for discharge today and follow as outpatient possible to get PFTs today or as outpatient. 2. CAP on Broad spectrum antibiotics. following blood cultures negative in three days, but sputum culture growing MRSA was on Vancomycin and now switch to by mouth Bactrim that will continue as outpatient for seven days. 3. Troponin Leak Probably due to Hypoxemia. recommended Cardiology consult if EKG changes, today had some heart block asked for specialist physicians patient totally asymptomatic. specialist physicians will follow as outpatient gave okay for discharge today 4. Hypertension controlled. , Hydralazine as needed 5. Obesity strongly recommended diet and exercise as outpatient. Started on Prednisone 30 mg daily starting tomorrow. Encourage activity. Discussed with patient and nurse Miss Chau. DVT GI prophylaxis - Subcutaneous heparin and Pepcid Discharge Planning Discharge Today Pt Condition on Discharge: Good Discharge Disposition: Discharge Home Discharge Time: > 30 minutes Discharge Instructions DIET: Follow Instructions for: As Tolerated, No Restrictions Activities you can perform: Regular-No Restrictions Ceasar Dudley MD Jan 24, 2017 12:40
[2017-01-24] MEDS ORDERED: FURO1TAB62 PO (12:41)
[2017-02-07 08:13] LABS: CRITICAL VALUE YES
[2017-02-07] MEDS ORDERED: AMLO10TA2 PO (09:12)
[2017-02-07] MEDS ORDERED: CLON.1 PO (09:14)
== END 2017-01-24 13:25 | disposition home or self-care (01) | DRG 917 ==
LOC: NEPE 06:27 → EDBD 07:48 → NEDA 07:48 → MERGE 07:48 → HIMN 11:49 → N04B 01-21 16:06
PROVIDERS: ADMIT Internal Medicine; ATTEND Internal Medicine
PROC: 0BH17EZ Insertion of Endotracheal Airway into Trachea, Via Natural or Artificial Opening (ICD-10-PCS; principal; 2017-01-14)
PROC: 5A1945Z Respiratory Ventilation, 24-96 Consecutive Hours (ICD-10-PCS; 2017-01-14)
DX: T54.2X1A Toxic effect of corrosive acids and acid-like substances, accidental (unintentional), initial encounter (principal); J18.9 Pneumonia, unspecified organism; J81.0 Acute pulmonary edema; J96.01 Acute respiratory failure with hypoxia; J96.02 Acute respiratory failure with hypercapnia; E46 Unspecified protein-calorie malnutrition; D69.6 Thrombocytopenia, unspecified; S27.399A Other injuries of lung, unspecified, initial encounter; I10 Essential (primary) hypertension; T56.5X1A Toxic effect of zinc and its compounds, accidental (unintentional), initial encounter; T56.4X1A Toxic effect of copper and its compounds, accidental (unintentional), initial encounter; T56 Toxic effect of metals; T56.891A Toxic effect of other metals, accidental (unintentional), initial encounter; T45.4X1A Poisoning by iron and its compounds, accidental (unintentional), initial encounter; E87.6 Hypokalemia; E66.9 Obesity, unspecified; I45.9 Conduction disorder, unspecified; R74.8 Abnormal levels of other serum enzymes; Y92.513 Shop (commercial) as the place of occurrence of the external cause; Z22.322 Carrier or suspected carrier of Methicillin resistant Staphylococcus aureus; Z68.37 Body mass index [BMI] 37.0-37.9, adult
CPT/HCPCS: 31500; 36600; 51702; 71010; 76937; 80048; 80053; 80202; 81001; 82550; 82552; 82565; 82805; 83605; 83735; 83880; 84100; 84484; 85007; 85025; 85027; 85610; 85730; 86022; 87040; 87070; 87086; 87205; 87449; 87641; 87804; 93005; 94002; 94003; 94150; 94640; 94664; 96365; 96375; J0360; J0456; J1644; J1940; J2060; J2250; J2270; J2543; J2920; J3010; J3370; J3480; J7030; J7040; J7050; J7512